=== PATIENT | female | born 1945 | race Caucasian/White ===

== ENCOUNTER 2019-09-08 03:19 | Emergency (ER) | payer MEDICARE, SELFPAY ==
--- NOTE | ~2019-09-08 | CT_ITS ---
EXAMINATION: CT abdomen pelvis wo con DATE: 09/08/2019 07:25 INDICATION: Acute right lateral and lower abdominal pain. TECHNIQUE: Computed tomography (CT) of the abdomen and pelvis was performed without intravenous contr ast. Automated exposure control and iterative reconstruction technique were employed. The dose-length product was 626.80 mGy-cm. COMPARISON: 02/07/2019 FINDINGS: Small calcified nodules in the right lower lobe along with multiple hepatic and splenic calcification s consistent with old granulomatous disease. Visualized inferior heart appears normal. No pericardial or pleural effusion. Gallbladder, pancreas, bilateral adrenal glands are normal. 1 mm nonobstructing stone at the lower pole of the left kidney. Again seen are multiple parapelvic cysts at the left kid maday. Obstructing 2-3 mm stone at the right ureterovesicular junction resulting in mild right hydroure teronephrosis and mild right perinephric stranding. Additional 1 mm stone at the upper pole of the ri ght kidney. No abnormal bowel wall thickening or obstruction. The appendix is not visualized. No ravi cecal inflammatory change to suggest acute appendicitis. Bladder, anteverted uterus and bilateral adn exa are unremarkable. No free intraperitoneal gas or fluid. No pathologically enlarged abdominal or p elvic lymphadenopathy. Severe disc height loss at L5-S1. Otherwise mild lumbar spondylosis and modera te spondylosis in the visualized lower thoracic spine. IMPRESSION: 1. Bilateral nephrolithiasis with obstructing 2-3 mm stone at the right ureterovesicular junction wit h mild right hydroureteronephrosis. Reviewed, dictated and finalized at location A. ER MECHANIC IMPRESSION: 1. Bilateral nephrolithiasis with obstructing 2-3 mm stone at the right uretero vesicular junction with mild right hydroureteronephrosis.
[2019-09-08 03:20] VITALS: BP 142/78; PULSE 78; RESP 22; TEMP 36.2; O2SAT 99
--- NOTE | 2019-09-08 04:00 | ED.ABDPAIN ---
HPI - Abdominal Pain General Chief Complaint: Abdominal Pain Stated Complaint: adominal pain History of Present Illness HPI narrative: Sofia salcido 74-year-old female awoke at 2:00 a.m. with sharp right lower quadrant pain rated 7/10 associated with nausea sweating and feeling hot. She had no vomiting. Pain is worse when sitting or standing decreased when lying supine. Is constant and nonradiating. She had similar pain in the past with a kidney stone. She is color blind is not sure if she has had hematuria. She had similar RLQ pain several years ago when she had a kidney stone. For the last 3 days she has had dysuria and a bladder cramping. She tried taking some leftover Cipro tablets for several days with no benefit. She was started on cefixime 400 mg yesterday by her PCP. She denies fevers chills or flank pain. Related Data Allergies Allergy/AdvReac Type Severity Reaction Status Date / Time iodine Allergy Severe Anaphylactic Verified 09/08/19 04:03 Shock nortriptyline [From Pamelor] Allergy Intermediate Abdominal Verified 09/08/19 04:10 Pain Review of Systems ENT: Comments: Denies sore throat nasal congestion Cardiovascular: Comments: denies chest pain/palpitations Gastrointestinal: Comments: denies diarrhea Musculoskeletal: Comments: soreness in her back and right hip which she attributes to running with her dog. This is nothing new Integumentary/Breasts: Comments: no rash Neurologic: Comments: no headache PMFSH Past Medical History Medical History (Updated 09/08/19 @ 06:36 by He Dia MD) Calculus of kidney Patient denies significant medical history Surgical History Surgical History (Updated 09/08/19 @ 04:07 by He Dia MD) History of appendectomy Social History Social History (Updated 09/08/19 @ 04:07 by He Dia MD) Smoking status: Never smoker Gender identity (if verbalized by the patient): Female Exam Narrative: Exam Narrative: laying upright in bed, somewhat restless, appears uncomfortable Const: Nutritional Appearance: average body habitus HENMT: Mouth: Yes moist mucous membranes Neck: Neck: no lymphadenopathy Resp: Auscultation: clear to auscultation bilaterally Cardio: Rate: regular rate Rhythm: regular rhythm Heart sounds: S1 normal heart sound present and S2 normal heart sound present GI: Inspection: no abdominal wall ecchymosis and non-distended GI Palp: Yes abdominal tenderness ( Right lower quadrant and suprapubic area. Appendectomy scar) and Yes Other GI palpation findings present ( abdomen is soft there is no guarding) Auscultation: normal bowel sounds Back/Spine/Pelvis: Back: no CVA tenderness Extrem: Right lower extremity: ROM limited ( pain) Psych: Appearance: grossly normal and well kempt Course Course Emergency Course: Pain improvement with morphine. Toradol not recommended for pt's older than 65. Vital Signs Vital signs: Vital Signs Temperature 36.2 C L 09/08/19 03:20 Pulse Rate 78 09/08/19 03:20 Respiratory Rate 22 H 09/08/19 03:20 Blood Pressure 142/78 H 09/08/19 03:20 Pulse Oximetry 99 09/08/19 03:20 Temperature 36.2 C L 09/08/19 03:20 Pulse Rate 70 09/08/19 05:22 Respiratory Rate 16 09/08/19 05:22 Blood Pressure 138/72 09/08/19 05:22 Pulse Oximetry 99 09/08/19 03:20 MDM - Abdominal Pain MDM Narrative Medical decision making narrative: Pain decreased to #3/10 after being given morphine and Zofran. No evidence of UTI. WBC - WNL. Pt's pain and dysuria likely related to the kidney stone. Therefore, stop antibiotic, strain urine, control pain. Return if worse, see PCP in 2 - 3 days if pain is not improved. Discussed with patient. Lab Data Lab results narrative: hematuria without pyuria or bacteruria. Result diagrams: 09/08/19 04:45 09/08/19 04:45 Labs: Lab Results 09/08/19 09/08/19 09/08/19 Range/Units 03:55 04:45
--- NOTE | 2019-09-08 04:25 | PC.NURSE ---
attempted IV, using aseptic technique. Dressing applied, request another nurse to try.
[2019-09-08] MEDS: ONDANSETRON INJ 4 MG/2 ML VIAL IV PUSH ×2 (04:40→05:15)
[2019-09-08] MEDS: SODIUM CHLORIDE 0.9% IV 1,000 ML 750 ML IV CONT (04:50)
[2019-09-08] MEDS: MORPHINE SULFATE 4 MG/ML INJ IV PUSH (04:50)
[2019-09-08 04:51] LABS: Basophils Absolute Auto 0.06 K/mm3 (0.00-0.10); Basophils Percent Auto 0.8 % (0.0-1.0); Eosinophils Absolute Auto 0.14 K/mm3 (0.02-0.50); Eosinophils Percent Auto 1.9 % (1.0-6.0); Hematocrit 38.7 % (35.0-42.0); Hemoglobin 12.9 g/dL (11.7-13.8); Immature Granulocyte Absolute 0.04 K/mm3 (0.00-0.00); Immature Granulocyte Percent A 0.5 % (0.0-0.0); Lymphocytes Absolute Auto 1.73 K/mm3 (1.10-4.50); Lymphocytes Percent Auto 23.4 % (18.0-42.0); Mean Corpuscular HGB Conc 33.3 g/dL (32.0-36.0); Mean Corpuscular Hemoglobin 31.7 pg (27.0-31.0); Mean Corpuscular Volume 95.1 fL (78.0-102.0); Mean Platelet Volume 10.2 fl (9.2-11.8); Monocytes Absolute Auto 0.58 K/mm3 (0.10-0.90); Monocytes Percent Auto 7.8 % (2.0-11.0); Neutrophils Absolute Auto 4.8 K/mm3 (1.7-7.2); Neutrophils Percent Auto 65.6 % (50.0-70.0); Platelet Count Result 147 K/mm3 (150-420); Red Blood Count 4.07 M/mm3 (4.20-5.40); Red Cell Distribution Width 12.3 % (11.6-14.4); White Blood Count 7.4 K/mm3 (4.8-10.8)
[2019-09-08 04:56] LABS: Add Urine Microscopic? YES; Appearance Urine Clear (Clear); Bilirubin Urine Negative (Negative); Blood Urine 3+ (Negative); Color Urine Yellow (Yellow); Glucose Urine UA Negative (Negative); Ketones Urine Trace (Negative); Leukocyte Esterase Ur Negative (Negative); Nitrate Urine Negative (Negative); Protein Urine Negative (Negative); Urobilinogen Urine 0.2 mg/dL (0.2-1.0)
[2019-09-08 05:00] LABS: Anion Gap 13.2 mmol/L (7-16); Blood Urea Nitrogen 28 mg/dL (7-18); Calcium 8.8 mg/dL (8.5-10.1); Carbon Dioxide 28 mmol/L (21-32); Chloride 107 mmol/L (98-108); Estimated CRCL calculation 53 ml/min; Estimated Glomerular Filt Rate > 60; Glucose 114 mg/dL (70-99); Osmolality Calculated 304 mOsm/kg (285-295); Potassium 4.2 mmol/L (3.5-5.1); Sodium 144 mmol/L (136-145)
[2019-09-08 05:01] LABS: Bacteria Urine None seen /hpf; Squamous Epithelial Cell Urine None seen /hpf (Few); WBC Urine 0-3 /hpf (0-3)
--- NOTE | 2019-09-08 05:21 | PC.NURSE ---
250ML NS infused, c/o burning in left hand. IV stopped. Waiting results of test
[2019-09-08 05:22] VITALS: BP 138/72; PULSE 70; RESP 16
--- NOTE | 2019-09-08 06:08 | PC.NURSE ---
with patient reviewing results.
--- NOTE | 2019-09-08 06:44 | PC.NURSE ---
patient only received 250mls due to inflitration
== END 2019-09-08 07:00 | disposition home or self-care (01) ==
PROVIDERS: Emergency Provider Family Medicine
DX: N20.0 Calculus of kidney (principal)
CPT/HCPCS: 36415; 74176; 80048; 81001; 85025; 96361; 96372; 96374; 96375; 99283; 99284; J2270; J2405; J7030

== ENCOUNTER 2019-12-04 09:42 | Outpatient (CLI) | payer MEDICARE, SELFPAY ==
[2019-12-04 10:56] LABS: Free T4 Free Thyroxine 0.79 ng/dL (0.76-1.46); Thyroid Stimulating Hormone 8.39 uIU/mL (0.36-3.74)
== END 2019-12-04 09:43 | disposition home or self-care (01) ==
LOC: CHSLAB 09:45
PROVIDERS: PCP Internal Medicine Geriatric Medicine; Visit Provider Internal Medicine Geriatric Medicine
DX: E03.9 Hypothyroidism, unspecified (principal)
CPT/HCPCS: 36415; 84439; 84443

== ENCOUNTER 2020-05-20 11:00 | Outpatient (CLI) | payer MEDICARE, SELFPAY ==
--- NOTE | ~2020-05-20 | US_ITS ---
EXAMINATION: US carotid duplex BI DATE: 05/20/2020 11:49 INDICATION: Right carotid stenosis. TECHNIQUE: Grayscale, color Doppler, and pulsed Doppler images of the cervical carotid arteries were obtained. The degree of vessel stenosis is placed in one of the following categories: normal, <50%, 5 0-69%, >=70% but less than near-occlusion, near-occlusion, or total occlusion. Note that percent sten osis relative to normal distal artery lumen diameter is indirectly measured from velocity measurement s as described by Erik, et al. Radiology 2003; [id number]. COMPARISON: None. FINDINGS: RIGHT: The right common carotid artery (CCA) peak systolic velocity (PSV) is 132 cm/s. The right internal ca rotid artery (ICA) PSV is 118 cm/s. The right ICA end-diastolic velocity (EDV) is 31 cm/s. The right ICA/CCA PSV ratio is 0.9. Grayscale and color Doppler images yield an estimate of <50% diameter reduc tion from plaque in the ICA. There is antegrade flow in the right vertebral artery. LEFT: The left CCA PSV is 114 cm/s. The left ICA PSV is 102 cm/s. The left ICA EDV is 32 cm/s. The left ICA /CCA PSV ratio is 0.9. Grayscale and color Doppler images yield an estimate of <50% diameter reductio n from plaque in the ICA. There is antegrade flow in the left vertebral artery. IMPRESSION: 1. <50% stenosis in the right internal carotid artery. 2. <50% stenosis in the left internal carotid artery. Reviewed, dictated and finalized at location A.
== END 2020-05-20 11:01 | disposition home or self-care (01) ==
LOC: CHSIMG 11:03
PROVIDERS: PCP Internal Medicine Geriatric Medicine; Visit Provider Internal Medicine Geriatric Medicine
DX: I65.21 Occlusion and stenosis of right carotid artery (principal)
CPT/HCPCS: 93880

== ENCOUNTER 2020-12-15 12:03 | Outpatient (CLI) | payer MEDICARE, SELFPAY ==
[2020-12-15 13:45] LABS: Thyroid Stimulating Hormone 6.25 uIU/mL (0.36-3.74)
[2020-12-15 14:20] LABS: Free T4 Free Thyroxine 0.73 ng/dL (0.76-1.46)
== END 2020-12-15 12:04 | disposition home or self-care (01) ==
LOC: CHSLAB 12:05
PROVIDERS: PCP Internal Medicine Geriatric Medicine; Visit Provider Internal Medicine Geriatric Medicine
DX: E03.9 Hypothyroidism, unspecified (principal)
CPT/HCPCS: 36415; 84439; 84443

== ENCOUNTER 2021-01-10 23:39 | Emergency (ER) | payer MEDICARE, SELFPAY ==
[2021-01-11] VITALS: BP 100/60; PULSE 76; RESP 18; TEMP 36.6; O2SAT 98
--- NOTE | 2021-01-11 00:01 | ED.ABDPAIN ---
HPI - Abdominal Pain General Chief Complaint: Urogenital-Female Stated Complaint: Possible Kidney Stone Source: patient and RN notes reviewed Mode of arrival: ambulatory Limitations: no limitations History of Present Illness MD elicited complaint: flank pain (left) Onset (ago): day(s) (1) Pain Consistency: intermittent Location: L flank Severity: moderate Quality: stabbing and sharp Radiation: none Migration to: no migration Exacerbating factors: movement Relieving factors: nothing Associated symptoms: denies other symptoms Related Data Allergies Allergy/AdvReac Type Severity Reaction Status Date / Time iodine Allergy Severe Anaphylactic Verified 09/08/19 04:03 Shock nortriptyline [From Pamelor] Allergy Intermediate Abdominal Verified 09/08/19 04:10 Pain Review of Systems Review of Systems: All systems reviewed & are unremarkable except as noted in HPI and below Constitutional: Constitutional: Denies chills and Denies fever(s) Genitourinary: Genitourinary: Reports dysuria PMFSH Past Medical History Medical History Calculus of kidney Patient denies significant medical history Surgical History Surgical History History of appendectomy Social History Social History Smoking status: Never smoker Gender identity (if verbalized by the patient): Female Exam Const: General: healthy appearing, no acute distress and alert Nutritional Appearance: well nourished and thin Orientation/consciousness: patient oriented x3 HENMT: Head: normal to inspection Face and sinus: normal facial exam Mouth: Yes moist mucous membranes Eyes: Conjunctivae: conjunctivae normal Pupils: Equal, round and reactive pupils present EOM: EOMs intact bilaterally Neck: Neck: normal visual inspection Resp: Effort & Inspection: normal respiratory effort Auscultation: clear to auscultation bilaterally Cardio: Rate: regular rate Rhythm: regular rhythm GI: GI Palp: Yes Soft to palpation, Yes Tenderness to palpation present (GI) (LLQ mild) and No Rebound tenderness present : General: Yes CVA tenderness on the left and localized Back/Spine/Pelvis: Cervical Spine: cervical ROM normal Thoracic/Lumbar Spine: thoraco-lumbar ROM normal Skin: General skin exam: normal color Rashes: no rashes Neuro: General: patient oriented x3, moves all extremities and no focal motor deficits Speech: normal speech Gait exam (Neuro): Normal gait present Extrem: General: normal to inspection and no clubbing, cyanosis or edema Psych: Appearance: grossly normal and well kempt Mental Status: mental status grossly normal Affect: normal affect Attitude: cooperative Thought content: Yes Normal thought content present Course Course Emergency Course: I discussed the results with the patient regarding UTI versus kidney stone. Patient is well-versed and treatment of her kidney stone. She declined CT scan abdomen pelvis to look for kidney stone. She wants to go home with antibiotics for UTI and Flomax for possible kidney stone. Discharge Plan Discharge Clinical Impression: Urinary tract infection Qualifiers: Urinary tract infection type: acute cystitis Hematuria presence: with hematuria Qualified Code(s): N30.01 - Acute cystitis with hematuria Patient Disposition: Home, Self-Care Condition: Stable Instructions: Antibiotic Form, Kidney Stones (ED), Urinary Tract Infection in Women (ED) Additional Instructions: Drink plenty of fluids, follow-up with her primary care and consider seen a urologist for recurrent kidney stones. Prescriptions: New cephalexin 500 mg tablet 500 mg PO Q8H 7 Days Qty: 21 RF: 0 tamsulosin [Flomax] 0.4 mg capsule 0.4 mg PO DAILY Qty: 10 RF: 0 hydrocodone-acetaminophen 5-325 mg tablet 1 tablet PO Q6H PRN (Reason: pain) Qty: 10 RF: 0
[2021-01-11 00:14] LABS: Basophils Absolute Auto 0.06 K/mm3 (0.00-0.10); Basophils Percent Auto 0.9 % (0.0-1.0); Eosinophils Absolute Auto 0.19 K/mm3 (0.02-0.50); Eosinophils Percent Auto 2.8 % (1.0-6.0); Hematocrit 37.2 % (35.0-42.0); Hemoglobin 12.4 g/dL (11.7-13.8); Immature Granulocyte Absolute 0.03 K/mm3 (0.00-0.00); Immature Granulocyte Percent A 0.4 % (0.0-0.0); Lymphocytes Percent Auto 32.4 % (18.0-42.0); Mean Corpuscular HGB Conc 33.3 g/dL (32.0-36.0); Mean Corpuscular Hemoglobin 32.1 pg (27.0-31.0); Mean Corpuscular Volume 96.4 fL (78.0-102.0); Mean Platelet Volume 9.5 fl (9.2-11.8); Monocytes Absolute Auto 0.45 K/mm3 (0.10-0.90); Monocytes Percent Auto 6.6 % (2.0-11.0); Neutrophils Absolute Auto 3.9 K/mm3 (1.7-7.2); Neutrophils Percent Auto 56.9 % (50.0-70.0); Platelet Count Result 168 K/mm3 (150-420); Red Blood Count 3.86 M/mm3 (4.20-5.40); Red Cell Distribution Width 12.3 % (11.6-14.4); White Blood Count 6.8 K/mm3 (4.8-10.8)
[2021-01-11 00:24] LABS: Anion Gap 6 mmol/L (8-16); Blood Urea Nitrogen 27 mg/dL (7-18); Calcium 9.6 mg/dL (8.5-10.1); Carbon Dioxide 31 mmol/L (21-32); Chloride 108 mmol/L (98-108); Estimated CRCL calculation 45 ml/min; Estimated Glomerular Filt Rate 60; Glucose 115 mg/dL (70-99); Osmolality Calculated 306 mOsm/kg (285-295); Sodium 145 mmol/L (136-145)
[2021-01-11 00:46] LABS: Add Urine Microscopic? YES; Appearance Urine Clear (Clear); Bilirubin Urine Negative (Negative); Blood Urine 3+ (Negative); Color Urine Light Yellow (Yellow); Glucose Urine UA Negative (Negative); Ketones Urine Trace (Negative); Leukocyte Esterase Ur Trace LEU/UL (Negative); Nitrate Urine Negative (Negative); Protein Urine Negative (Negative); Specific Grav Ur 1.025 (1.010-1.020); Urobilinogen Urine 0.2 mg/dL (0.2-1.0); pH Urine 5.5 (5.0-8.0)
[2021-01-11 00:47] LABS: Bacteria Urine 3+ /hpf; RBC Urine 21-50 /hpf (0-2); Squamous Epithelial Cell Urine Few /hpf (Few)
[2021-01-11] MEDS: CEPHALEXIN 500 MG CAPSULE PO (01:18)
[2021-01-11] MEDS: TAMSULOSIN HCL 0.4 MG CAPSULE PO (01:18)
[2021-01-11 01:19] VITALS: BP 110/71; PULSE 88; RESP 20; O2SAT 100
== END 2021-01-11 01:23 | disposition home or self-care (01) ==
PROVIDERS: Emergency Provider Emergency Medicine; PCP Internal Medicine Geriatric Medicine
DX: N30.01 Acute cystitis with hematuria (principal)
CPT/HCPCS: 36415; 80048; 81001; 85025; 99283; A9270

== ENCOUNTER 2021-09-01 11:00 | Outpatient (CLI) | payer MEDICARE, SELFPAY ==
[2021-09-01 12:13] LABS: Alanine Aminotransferase 21 U/L (14-59); Albumin Level 3.7 g/dL (3.4-5.0); Alkaline Phosphatase 77 U/L (46-116); Anion Gap 9 mmol/L (8-16); Aspartate Amino Transferase 20 U/L (15-37); Bilirubin,Total 0.7 mg/dL (0.00-1.00); Blood Urea Nitrogen 19 mg/dL (7-18); Calcium 8.9 mg/dL (8.5-10.1); Carbon Dioxide 31 mmol/L (21-32); Chloride 104 mmol/L (98-108); Cholesterol 216 mg/dL (0-200); Estimated Glomerular Filt Rate > 60; Free T3 2.79 pg/mL (2.18-3.98); Glucose 91 mg/dL (70-99); HDL Direct 71 mg/dL (40-60); LDL Cholesterol Calculated 137 mg/dL (<130); Osmolality Calculated 300 mOsm/kg (285-295); Potassium 4.2 mmol/L (3.5-5.1); Sodium 144 mmol/L (136-145); Thyroid Stimulating Hormone 7.55 uIU/mL (0.36-3.74); Total Protein 6.5 g/dL (6.4-8.2); Triglycerides 42 mg/dL (0-150)
[2021-09-01 13:20] LABS: Appearance Urine Clear (Clear); Bilirubin Urine Negative (Negative); Color Urine Light Yellow (Yellow); Glucose Urine UA Negative (Negative); Ketones Urine Negative (Negative); Leukocyte Esterase Ur Trace (Negative); Nitrate Urine Negative (Negative); Protein Urine Negative (Negative); Urobilinogen Urine 0.2 mg/dL (0.2-1.0); pH Urine 7.5 (5.0-8.0)
[2021-09-01 13:29] LABS: Add Urine Microscopic? YES; Blood Urine Trace-Intact (Negative)
[2021-09-01 13:30] LABS: Bacteria Urine Trace /hpf; Squamous Epithelial Cell Urine Few /hpf (Few)
== END 2021-09-01 11:01 | disposition home or self-care (01) ==
LOC: CHSLAB 11:06
PROVIDERS: PCP Internal Medicine Geriatric Medicine; Visit Provider Internal Medicine Geriatric Medicine
DX: R04.1 Hemorrhage from throat (principal); N20.0 Calculus of kidney; E78.2 Mixed hyperlipidemia
CPT/HCPCS: 36415; 80053; 80061; 81001; 84439; 84443; 84481

== ENCOUNTER 2022-04-13 14:59 | Outpatient (RCR) | payer MEDICARE, SELFPAY ==
--- NOTE | 2022-04-13 15:53 | PTOPEVAL1 ---
Assessment and note entered by JT File, PT Evaluation Information Assessment Status Evaluation Diagnosis R adhesive capsulitis Onset 04/09/22 Subjective Information patient reports she has been very active this past summer working in her yard and around her house. she reports all of a sudden she is unable to raise the arm forward or to her side. she reports it does wake her up at night. she reports it has been over 2 months since her symptoms started. she reports no improvement in this time. she reports she has no tried any medications. she reports she did have an xray last week which shows mild to moderate degenerative changes of the R shoulder. she reports she has pain and decreased mobility. she reports she has less pain stright out to her side, and with the arm tucked into her body. she reports she is unable to use the R arm for grooming/self care. patient reports pushing on the back of her shoulder will make her hand go numb. Reported Pain Level Pain Score 9: Self Report Assessment PT Clinical Summary mrs. beasley presents to skilled PT services for evaluation and treatment of pain in the R shoulder coupled with decreased rom and limited functional mobility. she presents with signs and symptoms of adhesive capsulitis with RTC tendonitis. she would do well to attend skilled PT to improve her objective/funcitonal deficits and progress towards a return to her prior level functional activity performance/quality of life. Plan of Care Interventions Electrical Stimulation,Hot Pack/Cold Pack,Manual Therapy,Patient/Caregiver Educati,Therapeutic Activities,Therapeutic Exercise PT Services Indicated Yes Treatment Frequency and 3x weekly for 12 visits Duration These treatments will address the objective and functional deficits as defined above. The patient will be advanced safely and appropriately in order for the patient to progress towards his/her prior level of function. Additional exercises will be introduced and as well as a comprehensive home exercise program upon discharge, if needed, ?to ensure carryover of functional gains achieved in the clinic. This treatment plan has been reviewed and agreement upon by the patient.
--- NOTE | 2022-04-22 14:03 | PTOPPROG ---
Assessment and note entered by Christie Fontana DPT Evaluation Information Assessment Status Progress Diagnosis R adhesive capsulitis Onset 04/09/2022 Subjective Information Pt would like today to be her last day of scheduled PT. She reports that her pain is very high but she feels she has learned ways to compensate. She is mostly worried about losing sensation in her hands as this has been getting worse while her shoulder has been getting better. She would rather not continue coming into PT because she feels as though she is able to do everything at home going forward. She will call back if something changes, but would rather continue her HEP independently and not use up more of her visits. Pt reports that she sees her MD in about 4 weeks. Assessment PT Clinical Summary Pt presents to physical therapy with signifcant improvements in shoulder pain, strength, and ROM since her initial visit. Although her shoulder has experienced improvements, she is demonstrating worsening of radicular symptoms into her R hand. She would like to continue her HEP independently going forward since her shoulder is doing better and she has been independent with all of her exercises at home. PT plans to keep her case open for about a month to ensure that pt has no changes in status and if pt does not reach back out, PT will formally discharge PT. Pt is to follow up with her MD regarding her POC and future treatment going forward. These treatments will address the objective and functional deficits as defined above. The patient will be advanced safely and appropriately in order for the patient to progress towards his/her prior level of function. Additional exercises will be introduced and as well as a comprehensive home exercise program upon discharge, if needed, ?to ensure carryover of functional gains achieved in the clinic. This treatment plan has been reviewed and agreement upon by the patient.
== END 2022-04-22 23:59 | disposition home or self-care (01) ==
LOC: CHSPT 14:59
PROVIDERS: Visit Provider Internal Medicine Geriatric Medicine
DX: M75.01 Adhesive capsulitis of right shoulder (principal)
CPT/HCPCS: 97014; 97110; 97140; 97161; G0283

== ENCOUNTER 2022-06-28 13:47 | Outpatient (CLI) | payer MEDICARE, SELFPAY ==
[2022-06-28 14:46] LABS: Influenza A QL RT-PCR Positive (Negative); Influenza B QL RT-PCR Negative (Negative); SARS-CoV-2 RNA PCR Negative (Negative)
== END 2022-06-28 13:48 | disposition home or self-care (01) ==
LOC: CHSLAB 13:55
PROVIDERS: PCP Internal Medicine Geriatric Medicine; Visit Provider Internal Medicine Geriatric Medicine
DX: R05.9 Cough, unspecified (principal); Z20.822 Contact with and (suspected) exposure to COVID-19
CPT/HCPCS: 87636

== ENCOUNTER 2022-09-16 12:18 | Emergency (ER) | payer MEDICARE, SELFPAY ==
--- NOTE | ~2022-09-16 | CT_ITS ---
Non-contrast Head CT History: Syncope COMPARISON: 06/10/2018 Technique: Axial non-contrast imaging of the brain was performed. Dose reduction technique was used on this scan by utilizing automated exposure control and iterative reconstruction technique. The dose -length product (DLP) was 605.33 mGy-cm. Findings: There is no evidence of intracranial hemorrhage, mass lesion, or acute infarct. Brain par enchyma appears normal. The ventricles and subarachnoid spaces are normal in size. The calvarium ap pears normal. The visualized paranasal sinuses and mastoid air cells are clear. Impression: No significant abnormality seen. Reviewed, dictated and finalized at location . RMEDIATE CARD TENDER Impression: No significant abnormality seen.
--- NOTE | ~2022-09-16 | XR_ITS ---
[[id number] ] INDICATION: Rib pain TECHNIQUE: Frontal projection of the upper right ribs, frontal projection of the lower right ribs, ob lique projection of all the right ribs, frontal inspiratory chest x-ray for interpretation. FINDINGS: There are no displaced rib fractures identified. There are no soft tissue abnormality see n. The lungs are clear. Osteopenia. IMPRESSION: 1:No acute displaced rib fractures. Reviewed, dictated and finalized at location L. D LEADER
[2022-09-16 12:30] VITALS: BP 154/74; PULSE 67; RESP 16; TEMP 36.3; O2SAT 98
--- NOTE | 2022-09-16 12:30 | ECG_ITS ---
Measurements Intervals [place] Rate: 72 P: 71 VA: 162 QRS: 81 QRSD: 84 T: 55 QT: 400 QTc: 441 Interpretive Statements SINUS RHYTHM NORMAL ECG NO PREVIOUS ECG AVAILABLE FOR COMPARISON Electronically Signed On 09-16-2022 13:02:06 ROTARY DRUM DYER by Denzel Parra M.D.
[2022-09-16] MEDS: SODIUM CHLORIDE 0.9% IV 500 ML 999 ML IV CONT (12:46)
[2022-09-16] MEDS: KETOROLAC 30 MG/ML VIAL (*BKC) IV PUSH (12:46)
[2022-09-16 12:54] LABS: Basophils Absolute Auto 0.02 K/mm3 (0.00-0.10); Basophils Percent Auto 0.4 % (0.0-1.0); Eosinophils Percent Auto 2.2 % (1.0-6.0); Hematocrit 38.9 % (35.0-42.0); Hemoglobin 12.8 g/dL (11.7-13.8); Immature Granulocyte Absolute 0.01 K/mm3 (0.00-0.00); Immature Granulocyte Percent A 0.2 % (0.0-0.0); Mean Corpuscular HGB Conc 32.9 g/dL (32.0-36.0); Mean Corpuscular Hemoglobin 32.1 pg (27.0-31.0); Mean Corpuscular Volume 97.5 fL (78.0-102.0); Mean Platelet Volume 10.5 fl (9.2-11.8); Monocytes Absolute Auto 0.35 K/mm3 (0.10-0.90); Monocytes Percent Auto 7.8 % (2.0-11.0); Neutrophils Absolute Auto 2.3 K/mm3 (1.7-7.2); Neutrophils Percent Auto 51.4 % (50.0-70.0); Platelet Count Result 145 K/mm3 (150-420); Red Blood Count 3.99 M/mm3 (4.20-5.40); Red Cell Distribution Width 12.5 % (11.6-14.4); White Blood Count 4.5 K/mm3 (4.8-10.8)
[2022-09-16 13:09] LABS: Partial Thromboplastin Time 29.5 SEC (23.90-30.70)
[2022-09-16 13:16] LABS: Lactic Acid Reflex 0.9 mmol/L (0.4-2.0)
[2022-09-16 13:17] LABS: Alanine Aminotransferase 21 U/L (14-59); Albumin Level 3.2 g/dL (3.4-5.0); Alkaline Phosphatase 79 U/L (46-116); Anion Gap 5 mmol/L (8-16); Aspartate Amino Transferase 16 U/L (15-37); Bilirubin,Total 0.6 mg/dL (0.00-1.00); Blood Urea Nitrogen 25 mg/dL (7-18); Carbon Dioxide 31 mmol/L (21-32); Chloride 105 mmol/L (98-108); Estimated Glomerular Filt Rate > 60; Glucose 98 mg/dL (70-99); Magnesium 1.8 mg/dL (1.8-2.4); NT Pro B Type Natriuretic Pept 65 pg/mL (0-450); Osmolality Calculated 296 mOsm/kg (285-295); Sodium 141 mmol/L (136-145); Total Protein 6.9 g/dL (6.4-8.2); Troponin I 5.8 ng/L (0.00-60.4)
[2022-09-16 13:19] LABS: CRP 1.3 mg/dL (0.0-0.9)
--- NOTE | 2022-09-16 14:01 | ED.FALL ---
HPI - Fall General Chief Complaint: Fall Stated Complaint: rib pain, Covid+ Time Seen by Provider: 09/16/22 12:29 Source: patient Mode of arrival: ambulatory Limitations: no limitations History of Present Illness HPI Narrative: this is a 77-year-old female with no significant past medical history diagnosed with COVID approximately 4 days ago, has been having some congestion and was taking NyQuil and 2 days ago had a fall and after she felt lightheaded and dizzy and injured the right side of her ribs. Otherwise her pain level is about an 8/10 with no shortness of breath currently no dizziness no lightheadedness no chest pain no abdominal pain no dysuria. complaint: fall Onset (ago): day(s) Fall from: standing Fall witnessed: no Place fall occurred: home Loss of consciousness: none Prolonged down time: no Symptoms prior to fall: lightheadedness and dizziness Related Data Allergies Allergy/AdvReac Type Severity Reaction Status Date / Time iodine Allergy Severe Anaphylactic Verified 09/16/22 13:06 Shock nortriptyline [From Pamelor] Allergy Intermediate Abdominal Verified 09/16/22 13:06 Pain Review of Systems Review of Systems: All systems reviewed & are unremarkable except as noted in HPI and below PMFSH Past Medical History Medical History Calculus of kidney Patient denies significant medical history Surgical History Surgical History History of appendectomy Social History Social History Smoking status: Never smoker Gender identity (if verbalized by the patient): Female Exam Const: General: healthy appearing, no acute distress and alert HENMT: Face and sinus: normal facial exam Mouth: Yes Normal oral and palatal mucosa present Throat: posterior oropharynx normal Eyes: Conjunctivae: conjunctivae normal EOM: EOMs intact bilaterally Neck: Neck: normal visual inspection, no lymphadenopathy and no meningeal signs Chest: Chest palpation & inspection: normal inspection of the chest Resp: Effort & Inspection: normal respiratory effort Auscultation: clear to auscultation bilaterally Cardio: Rate: regular rate Rhythm: regular rhythm GI: Auscultation: normal bowel sounds : General: Yes bladder normal to palpation Urinary Catheter: Urinary Catheter: patent and draining Back/Spine/Pelvis: Back: no CVA tenderness Skin: General skin exam: normal color Rashes: no rashes Wounds: no wounds Neuro: General: patient oriented x3 and moves all extremities Cranial nerves: Yes Nystagmus not present Speech: normal speech Gait exam (Neuro): Normal gait present Extrem: General: normal to inspection Psych: Mental Status: mental status grossly normal Affect: normal affect Attitude: cooperative Course Course Emergency Course: Patient received IV fluids as well as IV Toradol pain improved, EKG x-rays and CT scan of the head all proved to be negative. Vital Signs Vital signs: Vital Signs Temperature 36.3 C L 09/16/22 12:30 Pulse Rate 67 09/16/22 12:30 Respiratory Rate 16 09/16/22 12:30 Blood Pressure 154/74 H 09/16/22 12:30 Pulse Oximetry 98 09/16/22 12:30 Oxygen Delivery Room Air 09/16/22 12:30 Temperature 36.3 C L 09/16/22 12:30 Pulse Rate 67 09/16/22 12:30 Respiratory Rate 16 09/16/22 12:30 Blood Pressure 154/74 H 09/16/22 12:30 Pulse Oximetry 98 09/16/22 12:30 Oxygen Delivery Room Air 09/16/22 12:30 MDM - Fall Lab Data 09/16/22 12:46 09/16/22 12:47 Labs: Lab Results 09/16/22 09/16/22 09/16/22 Range/Units 12:46 12:46 12:47 WBC 4.5 L (4.8-10.8) K/mm3 RBC 3.99 L (4.20-5.40) M/mm3 Hgb 12.8 (11.7-13.8) g/dL Hct 38.9 (35.0-42.0) % MCV 97.5 (78.0-102.0) fL MCH 32.1 H (27.0-31.0) pg MCHC 32.9 (32.0-36.0) g/d
[2022-09-16 14:14] VITALS: BP 130/76; PULSE 72; RESP 16; TEMP 36.8; O2SAT 100
== END 2022-09-16 14:15 | disposition home or self-care (01) ==
PROVIDERS: Emergency Provider Emergency Medicine; PCP Internal Medicine Geriatric Medicine
DX: S20.211A Contusion of right front wall of thorax, initial encounter (principal); W18.39XA Other fall on same level, initial encounter; U07.1 COVID-19
CPT/HCPCS: 36415; 70450; 71101; 80053; 83605; 83735; 83880; 84484; 85025; 85610; 85730; 86140; 93005; 96361; 96374; 99284; J1885; J7040

== ENCOUNTER 2024-01-27 17:13 | Emergency (ER) | payer MEDICARE, SELFPAY ==
[2024-01-27] VITALS (8 sets, daily range): BP systolic 109–153; BP diastolic 62–86; PULSE 60–74; RESP 16–22; TEMP 36.8; O2SAT 98–100
--- NOTE | ~2024-01-27 | CT_ITS ---
CT cervical spine wo con Ordering provider: Nas Pate MD History: . Chronic cervical pain . Comparison: None. Technique: CT of the cervical spine was performed without contrast. Sagittal and coronal reformatted images were also obtained and reviewed. Automated exposure control and iterative reconstruction iglesia hnique were employed. The dose-length product was 173.50 mGy-cm. FINDINGS: VERTEBRAE: No subluxation or acute fracture. The occipital condyles are intact. Degenerative changes of the spine. DISC SPACES: Narrowing of the disks C4-C5, C5-C6 and C6-C7. Narrowing of C7-T1 and T1-T2 is also note d. Multilevel facet joint disease. Multilevel uncovertebral joint osteoarthritic changes. Bilateral n arrowing of the foramina at the level of C4-C5, C5-C6, C6-C7 and C7-T1. PARASPINOUS SOFT TISSUES: Normal. IMPRESSION: No acute osseous abnormality cervical spine. Reviewed, dictated and finalized at location A.
--- NOTE | ~2024-01-27 | XR_ITS ---
XR chest 1V portable Ordering provider: Nas Pate MD History: 79 years Female with . dizziness/weak . Comparison: July 13, 2015 FINDINGS: MEDIASTINUM: The cardiac silhouette is not enlarged. LUNGS: No infiltrates, effusions or pneumothorax. OTHER: No free air under the diaphragm. Degenerative changes of the spine. IMPRESSION: No acute cardiopulmonary pathology. Reviewed, dictated and finalized at location A.
--- NOTE | ~2024-01-27 | CT_ITS ---
CT brain wo con Ordering provider: Nas Pate MD History: 79 years Female with . Onset x5 days, dizziness . Comparison: None. Technique: CT of the head without contrast. Radiation reduction technique utilized. DLP is 605.33 mGy. FINDINGS: BRAIN PARENCHYMA AND CSF SPACES: Mild leukoaraiosis and diffuse cortical atrophy. Mild atheromatous d isease. No midline shift, mass effect or hemorrhage. The brain parenchyma and CSF spaces are otherwi se normal. VISUALIZED PARANASAL SINUSES: Well aerated. MASTOIDS: Well aerated. BONES: The bones appear intact. SOFT TISSUES: Visualized nasopharynx is normal. Superficial soft tissues are normal. IMPRESSION: No acute intracranial findings. Reviewed, dictated and finalized at location A.
--- NOTE | 2024-01-27 17:27 | ED.DIZZY ---
HPI - Dizziness General Chief Complaint: Dizziness Stated Complaint: head ache Time Seen by Provider: 01/27/24 17:17 Source: patient Mode of arrival: ambulatory Limitations: no limitations History of Present Illness HPI Narrative: Patient is a 79-year-old female with dizziness with position of her head all week for the past 5 days. She also had 1 event of syncope for a few seconds at home. She also got weak and near syncope at [facility] this week. She is here with continued weakness and dizziness. She has associated headache. MD elicited complaint: dizziness, near syncope, vertigo and disequilibrium Pertinent past history: other ( None) Onset (ago): day(s) (5) Timing: gradual onset and constant Severity: moderate Description: sense of movement, room spinning , off-balance and near-syncope History of similar symptoms: No Exacerbating factors: nothing Relieving factors: nothing Associated symptoms: syncope and weakness Associated neuro symptoms: other ( none except headache) Related Data Allergies Allergy/AdvReac Type Severity Reaction Status Date / Time iodine Allergy Severe Anaphylactic Verified 09/16/22 13:06 Shock nortriptyline [From Pamelor] Allergy Intermediate Abdominal Verified 09/16/22 13:06 Pain Review of Systems Review of Systems: All systems reviewed & are unremarkable except as noted in HPI and below Constitutional: Constitutional: Reports no additional constitutional complaints Eyes: Eyes: Reports no additional eye complaints ENT: Reports system reviewed and no additional complaints, except as documented Cardiovascular: Cardiovascular: Reports no additional cardiovascular complaints Respiratory: Respiratory: Reports no additional respiratory complaints Gastrointestinal: Gastrointestinal: Reports no additional gastrointestinal complaints Genitourinary: Genitourinary: Reports no additional female genitourinary complaints Musculoskeletal: Musculoskeletal: Reports no additional musculoskeletal complaints Integumentary/Breasts: Skin/Breast: Reports system reviewed and no additional complaints, except as docu Neurologic: Reports system reviewed and no additional complaints, except as documented Psychiatric: Psychiatric: Reports no additional psychiatric complaints Endocrine: Endocrine: Reports no additional endocrine complaints Hematologic/Lymphatic: Hematologic/Lymphatic: Reports no additional hematologic/lymphatic complaints Allergic/Immunologic: Allergic/Immunologic: Reports no additional allergic/immunologic complaints [facility] Past Medical History Medical History Calculus of kidney Patient denies significant medical history Surgical History Surgical History History of appendectomy Social History Social History Smoking status: Never smoker Gender identity (if verbalized by the patient): Female Exam Const: General: healthy appearing Nutritional Appearance: well nourished Orientation/consciousness: patient oriented x3 HENMT: Head: normal to inspection Ears: TM's normal bilaterally Face/Nose/Sinus: Normal external nose present Eyes: Conjunctivae: conjunctivae normal Pupils: Equal, round and reactive pupils present EOM: EOMs intact bilaterally Neck: Neck: normal visual inspection Chest: Chest palpation & inspection: normal inspection of the chest Resp: Effort & Inspection: normal respiratory effort and not labored Auscultation: clear to auscultation bilaterally Cardio: Rate: regular rate Rhythm: regular rhythm Heart sounds: no murmurs GI: Inspection: non-distended GI Palp: Yes Soft to palpation and No Tenderness to palpation present (GI) Auscultation: normal bowel sounds : General: Yes bladder normal to palpation Back/Spine/Pelvis: Back: no CVA tenderness Skin: General skin exam: normal c
--- NOTE | 2024-01-27 18:01 | ECG_ITS ---
Test Date: 2024-01-27 18:32:34 Measurements Intervals [place] Rate: 63 P: 61 RI: 163 QRS: 26 QRSD: 93 T: 50 QT: 414 QTc: 427 Interpretive Statements SINUS RHYTHM CANNOT R/O SEPTAL INFARCT, AGE INDETERMINATE BASELINE ARTIFACT- I, II, III, AVR, AVL, AVF, V1-V2 ABNORMAL ECG No previous ECG available for comparison Electronically Signed On 01-30-2024 10:16:11 CDT by Jovanny Greer D.O.
[2024-01-27 18:17] LABS: Basophils Absolute Auto 0.05 K/mm3 (0.00-0.10); Basophils Percent Auto 0.9 % (0.0-1.0); Eosinophils Absolute Auto 0.24 K/mm3 (0.02-0.50); Eosinophils Percent Auto 4.1 % (1.0-6.0); Hematocrit 37.8 % (35.0-42.0); Hemoglobin 12.9 g/dL (11.7-13.8); Immature Granulocyte Absolute 0.01 K/mm3 (0.00-0.00); Immature Granulocyte Percent A 0.2 % (0.0-0.0); Lymphocytes Absolute Auto 2.13 K/mm3 (1.10-4.50); Lymphocytes Percent Auto 36.2 % (18.0-42.0); Mean Corpuscular HGB Conc 34.1 g/dL (32-36); Mean Corpuscular Hemoglobin 32.7 pg (27.0-31.0); Mean Corpuscular Volume 95.7 fL (78.0-102.0); Mean Platelet Volume 9.8 fl (9.2-11.8); Monocytes Absolute Auto 0.52 K/mm3 (0.10-0.90); Monocytes Percent Auto 8.8 % (2.0-11.0); Neutrophils Absolute Auto 2.93 K/mm3 (1.70-7.20); Neutrophils Percent Auto 49.8 % (50.0-70.0); Platelet Count Result 141 K/mm3 (150-420); Red Blood Count 3.95 M/mm3 (4.20-5.40); White Blood Count 5.9 K/mm3 (4.8-10.8)
[2024-01-27 18:31] LABS: Partial Thromboplastin Time 26.4 Sec (23.9-30.70)
[2024-01-27 18:34] LABS: Appearance Urine Clear (Clear); Bilirubin Urine Negative (Negative); Blood Urine Negative (Negative); Color Urine Yellow (Yellow); Glucose Urine UA Negative (Negative); Ketones Urine Negative (Negative); Leukocyte Esterase Ur Trace LEU/UL (Negative); Nitrate Urine Negative (Negative); Protein Urine Negative (Negative); Specific Grav Ur 1.025 (1.010-1.020); Urobilinogen Urine 0.2 mg/dL (0.2-1.0)
[2024-01-27 18:38] LABS: Alanine Aminotransferase 12 U/L (14-59); Albumin Level 3.4 g/dL (3.4-5.0); Alkaline Phosphatase 63 U/L (46-116); Anion Gap 6 mmol/L (4-12); Aspartate Amino Transferase 21 U/L (15-37); Bilirubin,Total 0.4 mg/dL (0.00-1.00); Blood Urea Nitrogen 33 mg/dL (7-18); Calcium 9.1 mg/dL (8.5-10.1); Carbon Dioxide 31 mmol/L (21-32); Chloride 104 mmol/L (98-108); Estimated CRCL calculation 50 ml/min; Estimated Glomerular Filt Rate > 60; Glucose 101 mg/dL (70-99); Osmolality Calculated 299 mOsm/kg (285-295); Sodium 141 mmol/L (136-145); Total Protein 6.5 g/dL (6.4-8.2)
[2024-01-27 18:40] LABS: Add Urine Microscopic? YES; Bacteria Urine 2+ /hpf; RBC Urine 0-2 /hpf (0-2); Squamous Epithelial Cell Urine Few /hpf (Few)
[2024-01-27] MEDS: CEPHALEXIN 500 MG CAPSULE PO (19:50)
[2024-01-27] MEDS: MECLIZINE HCL 25 MG TABLET PO (19:50)
--- NOTE | 2024-01-27 21:15 | PC.NURSE ---
had pt stand up beside bed to see if they still felt dizzy. pt no longer felt dizzy so tech walked pt to door and back to bed. pt still had no feeling of dizziness and stated they are ready to go home
== END 2024-01-27 21:20 | disposition home or self-care (01) ==
PROVIDERS: Emergency Provider Emergency Medicine; PCP Internal Medicine Geriatric Medicine
DX: N39.0 Urinary tract infection, site not specified (principal); H81.10 Benign paroxysmal vertigo, unspecified ear; R55 Syncope and collapse; R53.1 Weakness
CPT/HCPCS: 36415; 70450; 71045; 72125; 80053; 81001; 84484; 85025; 85610; 85730; 87086; 87088; 93005; 99284; A9270

== ENCOUNTER 2024-04-11 09:49 | Outpatient (CLI) | payer MEDICARE, SELFPAY | END 2024-04-11 09:50 | disposition home or self-care (01) | LOC: CHSCARD 09:55 | PROVIDERS: PCP Internal Medicine Geriatric Medicine | DX: R41.3 Other amnesia (principal) | CPT/HCPCS: 99199 ==

== ENCOUNTER 2024-04-23 12:01 | Outpatient (CLI) | payer MEDICARE, SELFPAY ==
[2024-04-23 13:29] LABS: Appearance Urine Turbid (Clear); Color Urine Yellow (Yellow); Glucose Urine UA Negative (Negative); Ketones Urine Negative (Negative); Protein Urine Negative (Negative); Specific Grav Ur 1.025 (1.010-1.020)
[2024-04-23 13:30] LABS: Blood Urine 1+ (Negative)
[2024-04-23 13:32] LABS: Nitrate Urine Positive (Negative)
[2024-04-23 13:33] LABS: Add Urine Microscopic? YES; Bilirubin Urine Negative (Negative); Leukocyte Esterase Ur 2+ (Negative); Renal Epithelial Cells Urine Few /hpf; Squamous Epithelial Cell Urine Few /hpf (Few); Urobilinogen Urine 0.2 mg/dL (0.2-1.0); WBC Urine 16-20 /hpf (0-3)
[2024-04-23 13:34] LABS: Bacteria Urine 3+ /hpf
== END 2024-04-23 12:02 | disposition home or self-care (01) ==
PROVIDERS: PCP Internal Medicine Geriatric Medicine
DX: N39.0 Urinary tract infection, site not specified (principal)
CPT/HCPCS: 81001; 87077; 87086; 87088; 87186

== ENCOUNTER 2024-04-25 13:49 | Outpatient (RCR) | payer MEDICARE, SELFPAY ==
--- NOTE | 2024-04-25 15:26 | OPREHPOC ---
Outpatient Therapy Plan of Care This is a Multidisciplinary Plan of Care that may contain components documented by all disciplines (PT, OT, and ST.) PT Problem 1 PT Problem #1 Knowledge Deficit PT Goal 1 Goal / Goal Update The patient will be independent in a home exercise program. Target Visit 4 PT Problem 2 PT Problem #2 Pain PT Goal 1 Goal / Goal Update The patient will report a reduction in cervical pain to 5/10 at worst with daily activities. Target Visit 10 PT Problem 3 PT Problem #3 Impaired Balance PT Goal 1 Goal / Goal Update The patient will demonstrate at least 19/28 on the Tinetti Balance scale indicating a lower fall risk. Target Visit 10 PT Problem 4 PT Problem #4 Impaired Functional Mobil PT Goal 1 Goal / Goal Update The patient will demonstrate 30% or less self perceived disability per the Dizziness Handicap Inventory. Target Visit 10
--- NOTE | 2024-04-25 15:26 | PTOPEVAL1 ---
Assessment and note entered by Aurora Sanon, PT Evaluation Information Assessment Status Evaluation Diagnosis Vertigo, history of head injury Other ICD-10 Condition Codes ( R42, R41.3, Z87.828 PT) Onset 04/20/24 Subjective Information Karen reports she currently has a UTI and she gets them frequently. She reports when she gets them she is asymptomatic. The most recent UTI caused her to have memory loss that started about 3 weeks ago. She went to her MD and was put on medication which did not help. She was then started on a new medication. 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 She has gotten lost trying to go to her friend's house that she has visited frequently. She also has neck pain that has been present since 2018 when she sustained a concussion when she fell and hit her head on concrete. She notes the neck pain has worsened over the last few months and she has difficulty moving her head to the side. She has less motion to the right. She notes dizziness when she turns her head quickly. She reports her head feels full. She also notes dizziness when she bends over and tries to pick something up. She also notes the morning is the worst time of day for her due to dizziness. She is also wearing a heart monitor for 30 days to rule out cardiac issues that may be leading to dizziness. Reported Pain Level Pain Score 5: Self Report Assessment PT Clinical Summary Sofia Magana presents with vertigo and neck pain with a history of a concussion in 2018. She is currently fighting a UTI as well that is causing her to have short term memory loss. She reports difficulty moving her head quickly, moving in bed, driving, and bending over. She objectively demonstrates decreased and painful cervical AROM, vertigo with cervical rotation and extension, vertigo with right > left Daphne Hallpike and horizontal roll tests, and decreased balance. She does not demonstrate nystagmus currently. She will benefit from skilled PT to address these limitations. Plan of Care Interventions Gait Training,Hot Pack/Cold Pack,Manual Therapy, Neuro Re-education,Patient/Caregiver Educati, Therapeutic Activities,Therapeutic Exercise PT Services Indicated Yes Treatment Frequency and 2 times a week for 10 visits Duration These treatments will address the objective and functional deficits as defined above. The patient will be advanced safely and appropriately in order for the patient to progress towards his/her prior level of function. Additional exercises will be introduced and as well as a comprehensive home exercise program upon discharge, if needed, ?to ensure carryover of functional gains achieved in the clinic. This treatment plan has been reviewed and agreement upon by the patient.
--- NOTE | 2024-05-03 15:23 | OPREHPOC ---
Outpatient Therapy Plan of Care This is a Multidisciplinary Plan of Care that may contain components documented by all disciplines (PT, OT, and ST.) PT Problem 1 PT Problem #1 Knowledge Deficit PT Goal 1 Goal / Goal Update The patient will be independent in a home exercise program. Target Visit 4 Progress Not Met PT Problem 2 PT Problem #2 Pain PT Goal 1 Goal / Goal Update The patient will report a reduction in cervical pain to 5/10 at worst with daily activities. Target Visit 10 Progress Not Met PT Problem 3 PT Problem #3 Impaired Balance PT Goal 1 Goal / Goal Update The patient will demonstrate at least 19/28 on the Tinetti Balance scale indicating a lower fall risk. Target Visit 10 Progress Not Met PT Problem 4 PT Problem #4 Impaired Functional Mobil PT Goal 1 Goal / Goal Update The patient will demonstrate 30% or less self perceived disability per the Dizziness Handicap Inventory. Target Visit 10 Progress Not Met
--- NOTE | 2024-05-03 15:23 | PTOPPROG ---
Assessment and note entered by Aurora Sanon, PT Evaluation Information Assessment Status Progress Diagnosis vertigo, history of head injury Other ICD-10 Condition Codes ( R42, R41.3, Z87.828 PT) Onset 04/20/24 Subjective Information Sofia Magana is reporting no change in her symptoms since starting PT or starting ciproflaxcin. She reports her head feels full but she is not experiencing vertigo or spinning. She denies nausea. She has been on cipro for 3 days and has noted no change in her UTI symptoms. She has canceled her mission trip for later this month and plans to follow up with her doctor about symptoms. Assessment PT Clinical Summary Sofia Magana has completed 3 skilled PT visits. She is reporting no change in her symptoms since starting PT or starting ciproflaxicin. She reports her head feels full but she is not experiencing vertigo or spinning. She denies nausea. She is not demonstrating nystagmus or vertigo with vestibular testing today. She has attempted VOR and home Wily treatments with no change in symptoms. It is felt she is not a candidate for vestibular rehabilitation at this point and she will be put on hold. She was instructed to follow up with her physician. Plan of Care Interventions Other Other Interventions canalith repositioning, VOR, balance training PT Services Indicated No Treatment Frequency and PT on hold. Patient to follow up with her Duration physician. These treatments will address the objective and functional deficits as defined above. The patient will be advanced safely and appropriately in order for the patient to progress towards his/her prior level of function. Additional exercises will be introduced and as well as a comprehensive home exercise program upon discharge, if needed, ?to ensure carryover of functional gains achieved in the clinic. This treatment plan has been reviewed and agreement upon by the patient.
--- NOTE | 2024-07-10 14:52 | PCPTNOTE ---
07/10/24: Pt was last seen on 05/03/24 at which time she was put on hold until she could see her doctor. No additional orders received and she is discharged. -Aurora Sanon, PT
== END 2024-05-03 15:30 | disposition home or self-care (01) ==
LOC: CHSPT 13:49
DX: R42 Dizziness and giddiness (principal); R41.3 Other amnesia; Z87.828 Personal history of other (healed) physical injury and trauma
CPT/HCPCS: 95992; 97110; 97162; 97750

== ENCOUNTER 2024-08-21 09:11 | Outpatient (RCR) | payer MEDICARE, SELFPAY ==
--- NOTE | 2024-08-21 10:36 | OPREHPOC ---
Outpatient Therapy Plan of Care This is a Multidisciplinary Plan of Care that may contain components documented by all disciplines (PT, OT, and ST.) PT Problem 1 PT Problem #1 Knowledge Deficit PT Goal 1 Goal / Goal Update 1. independent and compliant with HEP Target Visit 2 PT Problem 2 PT Problem #2 Impaired Vestibular System PT Goal 1 Goal / Goal Update 1. patient to display normal performance of saccades 2. patient to display no tracking issues with smooth pursuits 3. patient to report no symptoms with log roll vestibular testing to the R Target Visit 8 PT Problem 3 PT Problem #3 Impaired Functional Mobility PT Goal 1 Goal / Goal Update 1. DHI to display 5% or less functional deficits 2. patient to report return of confidence to go out in public and participate in social events. Target Visit 8
--- NOTE | 2024-08-21 10:36 | PTOPEVAL1 ---
Assessment and note entered by JT File, PT Evaluation Information Assessment Status Evaluation ICD-10 Condition Codes (PT) Dizziness and Giddiness R42 Onset 08/16/24 Subjective Information patient reports she is dizzy off and on. she reports she is unaware when it is going to come about. she reports this frustrates her because she then gets anxious about being able to go out and participate in things. she reports her symptoms began months ago. she reports she woke up one morning very dizzy and staggering around. she reports when it is very bad the room is spinning. she reports it lasts nearly 30 minutes, and she has to sit down on the floor til it goes away. she reports she also always feels unsecure walking due to fear it is going to come on. she reports this affects her most out in the community. she reports she is confident at home knowing her surroundings. she reports it has not been too bad the last few days. she reports she has not been put on any medications for this issue. she reports she has no issues with reading or driving. however, she reports she will not drive when she is feeling dizzy that day at home. she reports her symptoms are brought on by movement. Reported Pain Level Pain Score 0: Self Report Assessment PT Clinical Summary mrs. beasley is a 79 yo woman who presents to skilled PT services for evaluation and treatment of dizziness. she explains symptoms of vertigo at times, low BP at times, and anxiety at times. she reports she is fearful to fall due to not knowing when the symptoms will come on. testing indicates patient has trouble with saccades, smooth pursuits , log roll test to the R, tinetti balance, and orthostatic hypotension. continued skilled PT is indicated to improve he objective/functional deficits, reduce subjective dizziness reports, and return to prior level functional activity performance/quality of life. Plan of Care Interventions Neuro Re-education,Patient/Caregiver Education, Therapeutic Activities,Therapeutic Exercise,Other Other Interventions CR PT Services Indicated Yes Treatment Frequency and 2x weekly for 8 visits Duration These treatments will address the objective and functional deficits as defined above. The patient will be advanced safely and appropriately in order for the patient to progress towards his/her prior level of function. Additional exercises will be introduced and as well as a comprehensive home exercise program upon discharge, if needed, ?to ensure carryover of functional gains achieved in the clinic. This treatment plan has been reviewed and agreement upon by the patient.
--- NOTE | 2024-09-13 16:25 | OPREHPOC ---
Outpatient Therapy Plan of Care This is a Multidisciplinary Plan of Care that may contain components documented by all disciplines (PT, OT, and ST.) PT Problem 1 PT Problem #1 Knowledge Deficit PT Goal 1 Goal / Goal Update 1. independent and compliant with HEP Target Visit 2 Progress Met PT Problem 2 PT Problem #2 Impaired Vestibular System PT Goal 1 Goal / Goal Update 1. patient to display normal performance of saccades 2. patient to display no tracking issues with smooth pursuits 3. patient to report no symptoms with log roll vestibular testing to the R Target Visit 8 Progress Met PT Problem 3 PT Problem #3 Impaired Functional Mobility PT Goal 1 Goal / Goal Update 1. DHI to display 5% or less functional deficits. not met 2. patient to report return of confidence to go out in public and participate in social events. met Target Visit 8 Progress Partially Met
--- NOTE | 2024-09-13 16:25 | PTOPDC ---
Assessment and note entered by JT File, PT Evaluation Information Assessment Status Discharge ICD-10 Condition Codes (PT) Dizziness and Giddiness R42,BPPV right ear H81.11 Onset 08/16/24 Subjective Information patient reports she feels Good today. she reports she has no dizziness. she reports she has had some L hip pain from increased hip exercises, but reports this is only when doing a lot of lateral kicks. Reported Pain Level Pain Score 0: Self Report Assessment PT Clinical Summary mrs. beasley presents to skilled PT with no vertigo/ dizziness. she has returned to all prior level activities with confidence. she has nearly met all goals for skilled PT. as of this date, she will DC skilled PT, and continue with exercise routine, including daily walking when it warms up, independently at home. Plan of Care PT Services Indicated Yes
== END 2024-09-13 16:29 | disposition home or self-care (01) ==
LOC: CHSPT 09:11
DX: H81.11 Benign paroxysmal vertigo, right ear (principal); I95.1 Orthostatic hypotension
CPT/HCPCS: 95992; 97110; 97112; 97161; 97530

== ENCOUNTER 2024-11-12 13:12 | Outpatient (CLI) | payer MEDICARE, SELFPAY ==
[2024-11-12 13:26] LABS: Add Urine Microscopic? YES; Appearance Urine Clear (Clear); Bilirubin Urine Negative (Negative); Blood Urine 2+ (Negative); Color Urine Light Yellow (Yellow); Glucose Urine UA Negative (Negative); Ketones Urine Trace (Negative); Leukocyte Esterase Ur 2+ LEU/UL (Negative); Nitrate Urine Negative (Negative); Protein Urine 2+ (Negative); Specific Grav Ur >= 1.030 (1.010-1.020); Urobilinogen Urine 0.2 mg/dL (0.2-1.0)
[2024-11-12 13:34] LABS: Bacteria Urine Trace /hpf; Squamous Epithelial Cell Urine Rare /hpf (Few); WBC Urine 31-50 /hpf (0-3)
--- OUTSIDE RECORDS SUMMARY | 2024-11-12 14:49 | XMS_ITS | Clinical Summary ---
Author Organization [facility] Address [address] [place] [address] Phone Care Team Providers Care Embroidery Patternmaker Name Role Phone Leana Shi MD Primary Care Provider [phone] Magdy Navarrete MD Unavailable [phone] Allergies Active Allergy Reactions Criticality Noted Date Comments Oxybutynin Unknown 05/18/2024 Iodine Anaphylaxis 05/18/2024 Contrast dye Nitrofurantoin Nausea 05/18/2024 Nortriptyline Unknown 05/18/2024 Medications ALPRAZolam (XANAX) 0.25 MG Tablet Take 0.25 mg by mouth 2 times daily as needed. Active Calcium Carb-Cholecalci ferol (CALCIUM 600 + D PO) Take by mouth. Active Polyvinyl Alcohol-Povidon e (REFRESH OP) Place in affected eye(s). Active estradiol (ESTRACE) 0.1 MG/GM Cream 2 g by Vaginal route daily. Active meclizine (ANTIVERT) 25 MG Tablet Take 25 mg by mouth 3 times daily as needed. Active Vibegron 75 MG Tablet Take by mouth. Active Encounters Date Type Department Care Team Description 09/17/2024 3:30 PM ORDER CHECKER PACKER PROCESSER Office Visit [facility] [address] [place] [address] Magdy Navarrete MD Mild cognitive impairment (Primary Dx); Vertigo Discharge Disposition: Discharged to home or Selfcare 09/17/2024 Travel from Last 3 Months Social History Tobacco Use Types Packs/Day Years Used Date Smoking Tobacco: Never Smokeless Tobacco: Never Tobacco Cessation:Counseling Given: Not Answered Alcohol Use Standard Drinks/Week Comments Not Currently 0 (1 standard drink = 0.6 oz pur e alcohol) Comments Unknown Sex and Gender Information Value Date Recorded Sex Assigned at Not on file Legal Sex Female 11:27 PM CDT Gender Identity Not on file Sexual Orientation Not on file Last Filed Vital Signs Vital Sign Reading Time Taken Comments Blood Pressure 122/72 09/17/2024 3:33 PM ORDER CHECKER PACKER PROCESSER Pulse 67 09/17/2024 3:33 PM ORDER CHECKER PACKER PROCESSER Temperature 36.4 C (97.6 F) 09/17/2024 3:33 PM ORDER CHECKER PACKER PROCESSER Respiratory Rate 16 09/17/2024 3:33 PM ORDER CHECKER PACKER PROCESSER Oxygen Saturation 97% 09/17/2024 3:33 PM ORDER CHECKER PACKER PROCESSER Inhaled Oxygen Concentration - - Weight 75.6 kg (166 lb 11.2 oz) 09/17/2024 3:33 PM ORDER CHECKER PACKER PROCESSER Height 167.6 cm (5' 6 ) 09/17/2024 3:33 PM ORDER CHECKER PACKER PROCESSER Body Mass Index 26.91 09/17/2024 3:33 PM ORDER CHECKER PACKER PROCESSER Plan of Treatment Upcoming Encounters Date Type Department Care Team (Late st Contact Info) Description 12/14/2024 2:30 PM CDT Office Visit [facility] - Neurology [facility] [address] [place] [address] Magdy Navarrete MD [address] [place] [address] Health Maintenance Due Date Last Done Comments Hepatitis C Virus (HCV) Screening 1945 Respiratory Syncytial Virus (RSV) Immunization (Adult) (1 - 1-dose 75+ series) 2022 Zoster Immunization (3 of 3) 04/26/2023 03/01/2023, 09/01/2010 DEXA Bone Density 08/04/2023 08/04/2021, 03/14/2020 Influenza Immunization (#1) 2024 02/2 03/2024, 07/28/2022, 05/22/2021, Additional history exists SARS-COV-2 Immunization ( season) 2024 05/30/2022, 10/22/2021, 05/22/2021, Additional history exists TdaP Immunization Completed 04/20/2012 Pneumococcal Immunization (50+ years) Completed 09/22/2023, 08/02/2016, 11/20/2014, Additional history exists Hepatitis B Immunization Aged Out No longer eligible based on patient's age to complete this topic Meningococcal Immunization (ACWY) Aged Out No longer eligible based on patient's age to complete this topic Rotavirus Immunization Aged Out No lo nger eligible based on patient's age to complete this topic Procedures Procedure Name Priority Date/Time Associated Diagnosis Comments MISCELLANEOUS TEST (NOT FOR [place]) Routine 09/19/2024 Mild cognitive impairment from Last 3 Months Results * MISCELLANEOUS TEST (NOT FOR [place]) (09/19/2024) Other 09/19/2024 us Magdy Navarrete MD LAB SEND OUTS Final Result from Last 3 Months Insurance MEDICARE C [facility] Care Teams Embroidery Patternmaker Relationship Specialty Start Date End Date Leana Shi MD [address] [place] [address] PCP - General Geriatric Medicine 05/16/24 Magdy Navarrete MD [address] [place] [address] Consulting Physician Neurology 09/17/24
--- OUTSIDE RECORDS SUMMARY | 2024-11-12 14:49 | XMS_ITS | Encounter Summary ---
Author Organization [facility] Address [address] [place] [address] Phone Care Team Providers Care Cleaner Housekeeping Name Role Phone Leana Shi MD Primary Care Provider [phone] Damon Floyd MD Unavailable [phone] [facility] ClareTom Si, MD Unavailable Encounter Details Date Type Department Care Team (Late st Contact Info) Description 06/09/2020 Orders Only [facility] [address] [place] [address] Scanning, Provider Social History Tobacco Use Types Packs/Day Years Used Date Smoking Tobacco: Never Smokeless Tobacco: Never Alcohol Use Standard Drinks/Week Comments Yes 0 (1 standard drink = 0.6 oz pur e alcohol) PHQ-2 Answer Date Recorded PHQ-2 Total Score (If total score is 3 or more points, staff should administer the PHQ-9) 0 02/29/2020 Comments No Sex and Gender Information Value Date Recorded Sex Assigned at Not on file Legal Sex Female 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 Gender Identity Not on file Sexual Orientation Not on file 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 Not on file Not on file Not on fi le documented as of this encounter Plan of Treatment Not on file documented as of this encounter Procedures Procedure Name Priority Date/Time Associated Diagnosis Comments SCAN - LABS 06/09/2020 documented in this encounter Results * SCAN - LABS (06/09/2020) us Provider Scanning Final Result documented in this encounter Visit Diagnoses Not on filedocumented in this encounter Care Teams Cleaner Housekeeping Relationship Specialty Start Date End Date Leana Shi MD PCP - General 10/22/16 Damon Floyd MD [address] [facility] [address] [place] [address] Consulting Physician Neurology 07/14/18 [facility] ClareTom Si, MD [address] [facility] [address] [place] [id number] Consulting Physician Neurology 06/07/24 documented as of this encounter
--- OUTSIDE RECORDS SUMMARY | 2024-11-12 14:49 | XMS_ITS | Encounter Summary ---
Author Organization [facility] Address [address] [place] [address] Care Team Providers Care Calender Feeder Name Role Phone Leana Shi MD Primary Care Provider + [phone] Damon Floyd MD Unavailable [phone] Tom Tafoya Si, MD Unavailable Encounter Details Date Type Department Care Team (Late st Contact Info) Description 11/09/2024 Telephone [facility] [address] [place] [id number] Leana Shi MD [address] [place] [address] Social History Tobacco Use Types Packs/Day Years Used Date Smoking Tobacco: Never Smokeless Tobacco: Never Alcohol Use Standard Drinks/Week Comments Yes 0 (1 standard drink = 0.6 oz pur e alcohol) PHQ-2 Answer Date Recorded PHQ-2 Total Score (If total score is 3 or more points, staff should administer the PHQ-9) 0 09/22/2023 Comments No Sex and Gender Information Value Date Recorded Sex Assigned at Not on file 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 Patient would like to go to the hospital close to her home--[facility]. Okay to put order in? [phone] documented in this encounter Plan of Treatment Not on file documented as of this encounter Visit Diagnoses Not on filedocumented in this encounter Care Teams Calender Feeder Relationship Specialty Start Date End Date eLana Shi MD PCP - General 10/22/16 Damon Floyd MD [address] [facility] [address] [place] [address] Consulting Physician Neurology 07/14/18 Tom Tafoya Si, MD [address] [facility] [address] [place] [address] Consulting Physician Neurology 06/07/24 documented as of this encounter
--- OUTSIDE RECORDS SUMMARY | 2024-11-12 14:49 | XMS_ITS | Referral Summary ---
Author Organization [facility] [address] Address [address] [place] [address] Phone Care Team Providers Care Odd Piece Checker Name Role Phone Leana Beebe MD Primary Care Provider + [phone] Damon Floyd MD Unavailable [phone] Tom Tafoya Si, MD Unavailable Encounters Date Type Department Care Team Description 11/12/2024 Telephone [facility] [address] [place] [address] Leana Beebe MD Urinary Problem 11/09/2024 Telephone [facility] [address] [place] [address] Leana Beebe MD 10/30/2024 Telephone [facility] [address] [place] [address] Leana Beebe MD 10/02/2024 Telephone [facility] [address] [place] [address] Leana Beebe MD 10/01/2024 11:15 AM CDT Office Visit [facility] [address] [place] [address] Leana Beebe MD Trochanteric bursitis, left hip (Primary Dx); Trochanteric bursitis, right hip; Tinnitus of both ears; Bilateral hearing loss, unspecified hearing loss type; Vestibular disequilibrium involving both inner ears 08/29/2024 Telephone [facility] [address] [place] [address] Leana Beebe MD 08/16/2024 1:00 PM [employer]DRY T[employer] Office Visit [facility] [address] [place] [address] Savannah Herrera NP Dizziness (Primary Dx); Vestibular disequilibrium involving both inner ears; Paroxysmal ventricular tachycardia (HCC); Nodular thyroid disease; History of traumatic head injury 08/14/2024 1:00 PM LAUNDRY TUB MAKER Procedure visit [facility] [address] [facility] [address] [place] [address] [place] [address] Estella Young Au.D. Dizziness from Last 3 Months Allergies Active Allergy Reactions Criticality Noted Date Comments Iodine Anaphylaxis High 05/18/2024 Cardiac arrest on the operating room table when receiving I did needed IV contrast dye in the 1970s Contrast dye Nitrofurantoin Nausea only Low 03/04/2021 Nortriptyline Other (See comments),Unknown Medium 11/25/2017 Dysphagia (patient reports does not remember ever taking this medication) Oxybutynin Other (See comments),Unknown Low 09/22/2023 Can not use medications in his class because of severe dry eye syndrome Medications calcium-vits T8-K-Z1-minerals 166.75 mg- 166.75 unit capsule Take by mouth Act leyla polyethylene glycol (MIRALAX) 17 gram/dose powderIndications: Chronic constipation Take 17 g by mouth nightly In chamomile tea 8-10 oz 850 g 11 03/08/20 23 Active Additional Information Patient not taking.Reported on 10/01/2024 carboxymethylcellu lose sodium (REFRESH LIQUIGEL OPHT) Administer into affected eye(s) Active vibegron 75 mg tabletIndications: Incontinence of urine in female Take 75 mg by mouth daily with breakfast 30 tablet 6 09/22/19 24 Active Additional Information Patient not taking.Reported on 10/01/2024 estradioL (ESTRACE) 0.01 % (0.1 mg/gram) vaginal creamIndications:R ecurrent UTI Insert 2 g into the vagina nightly Apply to vagina nightly 42.5 g 11 12/08/19 24 Active Additional Information Patient not taking.Reported on 10/01/2024 meclizine (ANTIVERT) 25 mg tablet 01/28/20 24 Active ALPRAZolam (XANAX) 0.25 mg tabletIndications: Vestibular disequilibrium involving right inner ear Take 1 tablet (0.25 mg total) by mouth 2 (two) times a day as needed (Vestibular dizziness) 14 tablet 05/10/20 24 Active Additional Information Patient not taking.Reported on 10/01/2024 ciprofloxacin (CIPRO) 500 mg tabletIndications: Recurrent UTI Take 1 tablet (500 mg total) by mouth 2 (two) times a day X 7 days 08/29/19 25 Active Additional Information Patient not taking.Reported on 10/01/2024 sulfamethoxazole-t rimethoprim (BACTRIM DS) 800-160 mg per tabletIndications: Acute cystitis without hematuria Take 1 tablet by mouth 2 (two) times a day for 3 days 6 tablet 10/31/19 25 025 Active Problems Problem Noted Date Diagnosed Date Dizziness 08/22/2024 Paroxysmal ventricular tachycardia 05/22/2024 Overview (05/22/2024): New finding on heart monitoring 05/22/2024. Refer to Cardiology for evaluation: 1. Predominant rhythm is normal sinus rhythm with a minimum heart rate of 46 beats per minute in sinus and a maximum heart rate of 176 beats per minute during a short run of asymptomatic nonsustained V-tach as described below.Average heart rate of 72 beats per minuteTotal monitoring time of 28 days 10 hours 12 minutes. 2. Heart rate and rate variability is appropriate. 3. No prolonged pauses. 4. Rare PACs with 10,713 PACs amounting to less than 1% of total beats. 5. Occasional PVCs with 67,850 PVCs corresponding to 2% of total beats. 6. There were 2 patient activated events with 1 of them associated with dizziness/lightheadedness. That particular episode of dizziness/lightheadedness was associated with sinus rhythm at 97 beats per minute with 1 ventricular couplet. 7. There were 8 auto triggered events most with asymptomatic short runs of nonsustained V-tach: anywhere from 3 beats to 5 beats with heart rates from 138-176 beats per minute. Electronically Signed By: Dr Anderson Washington 2024-05-22 13:55:42 CDT Assessment & Plan (08/23/2024 12:37 PM LAUNDRY TUB MAKER): Chronic, found on recent mobile telemetry monitoring and workup for dizziness. Heart rate regular upon auscultation without murmur today. She has been seen by cardiology for this issue and had a normal ECHO at [facility] with Dr. hopper. No further intervention at this time. Will continue to monitor. Assessment & Plan (07/31/2024 9:09 PM LAUNDRY TUB MAKER): Chronic, found on recent mobile telemetry monitoring and workup for dizziness. Heart rate regular upon auscultation without murmur today. She has been referred to Cardiology but has yet to set up an appointment-encouraged her to do this latosha as she can not complete a stress test at this time. Memory loss or impairment 04/09/2024 Assessment & Plan (07/31/2024 9:04 PM LAUNDRY TUB MAKER): Chronic, worsening in the last 3 months. Has had multiple visits for this complaint, saw neurology as well with no new intervention. Workup including labs, MRI brain, carotid ultrasound, mobile telemetry have all been unrevealing. Mobile telemetry did show several short runs of 5-8 beats of an SVT, for which she has been referred to Cardiology. BP stable, orthostatics negative. No recent echo in chart, unable to complete stress test at this time due to dizziness. B12 level was elevated-she is not on any oral supplementation, MMA was normal in April. Vitamin-D levels normal. Writing everything down seems to be keeping her somewhat on track and her daughter has been helping her, there are no new or acute findings on exam today. We will recheck TSH, free T4, free T3, TPO today. Keep follow with Dr. Beebe next week. Assessment & Plan (04/20/2024 3:55 PM CDT): complaining of short term memory issues in last 3 weeks as described above. H/o TBI In 2018. Dizziness upon standing, altered word recall on Mini-Cog. No other acute findings or neurological deficits on exam.vitals stable. MRI 2 days ago showed 1. No acute/recent infarction. 2. Interhemispheric falx tiny signal alteration as above could be dural base ossification/calcification or sequelae of old trace subdural blood products given history of traumatic brain injury. No significant mass effect or midline shift. 3. Chronic microvascular ischemic type white-matter changes. . PMH of carotid stenosis, no bruit-will repeat dopplers today. EKG last week showed sinus jet at 56bpm with no ectopy or ischemic changes. No recent ECHO in chart. CMP, CBC, TSH were unremarkable. Will refer to PT for vestibular therapy and will refer to Neurology for further assessment. Addendum:No recent lipid testing, will recheck lipids as well. Assessment & Plan (04/09/2024 7:57 PM CDT): Acute, worse in the last 3 weeks. See HPI for details. Altered word recall, questionable lisp, dizziness upon standing noted on exam, vitals stable. No other acute findings or neurological deficits on exam today. No recent brain imaging in chart. EKG in office today shows sinus Jet with no ectopy or ischemic changes. We will check labs, UA, and obtain MRI brain without contrast to rule out any acute changes. Follow in 1 week Overactive bladder 04/09/2024 Assessment & Plan (04/09/2024 7:54 PM CDT): Chronic, controlled with Myrbetriq. Still admits frequent nocturia, and complaining of confusion as noted above. We will check UA with reflex culture today to rule out UTI. Push fluids Vitamin D deficiency 04/09/2024 Kidney stone 03/04/2021 Carotid stenosis, asymptomatic, right 02/15/2019 Overview (08/22/2024): 03/2024 bilateral carotids with less than 50% stenosis. January 2019 Mild right carotid stenosis documented on [facility] screening, no further testing ordered yet. Assessment & Plan (07/31/2024 9:08 PM LAUNDRY TUB MAKER): Chronic, controlled. Carotid Dopplers from 03/2024 unremarkable. See plan for vestibular disequilibrium above. Assessment & Plan (04/20/2024 3:55 PM CDT): Recheck carotid dopplers today due to persistent floater in R eye and memory changes. History of traumatic head injury 06/22/2018 Overview (02/29/2020): Resulted in imbalance, mild memory impairment that improved over 2 years by 2019 Assessment & Plan (04/20/2024 3:54 PM CDT): Chronic, sustained in 2017. 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 Dizziness upon standing, altered word recall on Mini-Cog. No other acute findings or neurological deficits on exam.vitals stable. MRI 2 days ago showed 1. No acute/recent infarction. 2. Interhemispheric falx tiny signal alteration as above could be dural base ossification/calcification or sequelae of old trace subdural blood products given history of traumatic brain injury. No significant mass effect or midline shift. 3. Chronic microvascular ischemic type white-matter changes. . PMH of carotid stenosis, no bruit-will repeat dopplers today. EKG last week showed sinus jet at 56bpm with no ectopy or ischemic changes. No recent ECHO in chart. CMP, CBC, TSH were unremarkable. Will refer to PT for vestibular therapy and will refer to Neurology for further assessment. Addendum:No recent lipid testing, will recheck lipids as well. Assessment & Plan (04/09/2024 7:49 PM CDT): Chronic, sustained in 2017. Had no residuals after symptoms had fully resolved, however now complaining of short term memory issues as described above. Dizziness upon standing, questionable lisp, altered word recall on Mini-Cog. No other acute findings or neurological deficits on exam. We will check labs and MRI brain without contrast today. Nodular thyroid disease 11/25/2017 Assessment & Plan (07/31/2024 8:52 PM LAUNDRY TUB MAKER): Chronic, controlled without medications at this time. See HPI for details. Last thyroid ultrasound from 2018 was unremarkable-showed stable nodules. Disequilibrium on exam, no other neurological deficits or acute findings. Last TSH done 03/2024 was mildly elevated at 6.36. Recent neurology consult expressed concern, we will recheck TSH, free T4, free T3, and TPO today. Vestibular disequilibrium involving both inner e ars 05/29/2014 Overview (08/15/2024): Vestibular studies done August 13, 2024 There is no electrophysiological evidence of a peripheral or central vestibular system impairment affecting the lateral semicircular canals and/or the superior portion of the vestibular nerves. Pending medical correlation from her Neurologist and/or her PCP, consideration of a referral to Physical Therapy for balance re-training. Ira Toussaint Assessment & Plan (08/23/2024 12:33 PM LAUNDRY TUB MAKER): Dizziness Intermittent dizziness has worsened over the past few weeks. Audiological testing and MRI results are normal. Thyroid levels are slightly high but not concerning. Refer back to neurology for further evaluation and order vestibular physical therapy. Assessment & Plan (07/31/2024 9:07 PM LAUNDRY TUB MAKER): Acute, intermittent, mostly when sitting to standing or turning head quickly. Past medical history of TBI in 2018 noted- Complaining of memory issues. See HPI for details. MRI brain done 03/2024 showed old changes and chronic microvascular disease. Admits mild improvement with vestibular therapy from PT. Mobile telemetry did show several short runs of 5-8 beats of an SVT, for which she has been referred to Cardiology. BP stable, orthostatics negative. No recent echo in chart, unable to complete stress test at this time due to dizziness. B12 level was elevated-she is not on any oral supplementation, MMA was normal in April. Vitamin-D levels normal. We will recheck TSH, free T4, free T3, TPO today. Continue meclizine p.r.n. Keep follow with Dr. Beebe next week. Assessment & Plan (05/22/2024 8:59 PM CDT): >>ASSESSMENT AND PLAN FOR VERTIGO WRITTEN ON 03/09/2022 2:35 PM BY SAVANNAH HERRERA NP Presents with dizziness worse with position changes and tinnitus in R ear. Neuro exam intact, no acute findings on exam. Will refer to PT for Wily angel. Enouraged Flonase use. Offered Meclizine, patient refused. Keep follow up with Dr. beebe next month. Call with any changes/concerns. Assessment & Plan (05/22/2024 8:59 PM CDT): >>ASSESSMENT AND PLAN FOR VERTIGO WRITTEN ON 04/09/2024 7:50 PM BY SAVANNAH HERRERA NP Acute, intermittent, mostly when sitting to standing. See HPI for details. Orthostatic BP negative in office today. Past medical history of TBI in 2018 noted- Complaining of memory issues. No recent brain imaging in chart. Altered word recall on mini cog and admitted short term memory loss, questionable intermittent lisp but speech is otherwise clear without aphasia. No other acute findings or neurological deficits on exam. EKG in office today shows sinus Jet with no ectopy or ischemic changes. We will order a 30 day telemetry monitoring. We will check CMP CBC TSH magnesium vitamin-D and UA with reflex culture today. We will obtain MRI of brain without contrast to rule out stroke, TIA, mass, or any other acute changes. Advised to avoid any [id number] medicines at this time. Push fluids. Follow in 1 week Assessment & Plan (05/22/2024 8:59 PM CDT): >>ASSESSMENT AND PLAN FOR VERTIGO WRITTEN ON 04/20/2024 3:24 PM BY SAVANNAH HERRERA NP Acute, intermittent, mostly when sitting to standing or turning head quickly. Past medical history of TBI in 2018 noted- Complaining of memory issues. See HPI for details. MRI brain done 04/17 showed old changes and chronic microvascular disease. Altered word recall on mini cog and admitted short term memory loss, speech clear. Gait steady without assistance. No other acute findings or neurological deficits on exam. Repeat UA today after finishing keflex for UTI the grew E coli-results pending. EKG in office last week showed sinus Jet with no ectopy or ischemic changes. PMH of carotid stenosis noted, will check dopplers today. REFER to neurology for further assessment and h/o TBI. REFER to PT for vestibular therapy for vertigo. Medullary sponge kidney 12/08/2013 Overview (10/30/2016): Medullary sponge kidney Assessment & Plan (08/29/2019 12:25 PM LAUNDRY TUB MAKER): Continue on the special kidney diet that Dr. JAMES gave last time. Recurrent UTI 12/08/2013 Overview (10/30/2016): Recurrent urinary tract infection Assessment & Plan (04/20/2024 3:25 PM CDT): Finished 7 day course of keflex today for UTI that grew E.coli. had repeat UA done this AM- results pending. No symptoms or abnormal exam findings. Will continue to monitor. 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 Saw eye doctor 2 weeks ago with no concerns. Will check carotid dopplers today. See plan for memory loss above. Trochanteric bursitis, right hip 03/08/2023 09/22/2023 Other chest pain 10/05/2022 09/22/2023 Assessment & Plan (10/05/2022 7:28 PM CDT): Likely related to fall onto bathtub. Admits they did a CXR at [facility] that showed bruisied rib. - no records. Tenderness as noted above. OTC meds for pain as needed. Splinting may help also. Heat/ice as tolerated. Call with any changes or concerns. Fall from or off toilet w st rike against object, subs 10/05/2022 08/22/2024 Assessment & Plan (10/05/2022 7:30 PM CDT): approx 1 week ago after a coughing fit, fell into side of bathtub. See plan for other chest pain above. Cough and COVID symptoms are gone. No acute findings on exam. COVID-19 10/05/2022 09/22/2023 Assessment & Plan (10/05/2022 7:31 PM CDT): Symptoms lasted approximately 5-7 days and resolved with only OTC treatments. Fall after a coughing fit as noted above. Was seen in [facility] after fall-no records. No acute findings on exam today. Chronic kidney disease 09/28/2022 Assessment & Plan (10/05/2022 7:26 PM CDT): BUN/creatinine still stable. Will re-check CMP, CBC, LDL before annual exam in 6 months. 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 09/22/2023 Overview (03/04/2021): New finding Diminished elasticity of the vulvar skin, thinning of the labia minora, introital narrowing, dry and pale color perineal tissue with fusing of the labia Started estrogen cream Personal history of colonic polyps 03/14/2020 09/22/2023 Medication monitoring encounter 03/14/2020 05/22/2024 Hyperthyroidism determined b y thyroid function test 02/11/2019 02/29/2020 Overview (02/11/2019): Began one-month in to Synthroid 0.1 mg Abnormal weight loss 02/07/2019 020 Overview (02/07/2019): Added automatically from request for surgery [id number] Assessment & Plan (08/29/2019 12:26 PM LAUNDRY TUB MAKER): Weight remains stable, and she reports a good appetite. Nausea 02/07/2019 02/29/2020 Overview (02/07/2019): Added automatically from request for surgery [id number] Bilateral occipital neuralgia 02/02/2019 02/29/2020 Hypothyroidism, adult 12/22/20182019 Assessment & Plan (08/29/2019 12:23 PM LAUNDRY TUB MAKER): TSH today is a little high at 5.5. Advised that we start on a very small dose of levothyroxine and pt does not want to do this. She states that she does not want to be on a medication for it. I will recheck this again in 6 months before her annual with DR. JAMES. Intractable chronic post-traumatic headache 12/21/2018 02/29/2020 Syncope and collapse 06/22/2018 020 Overview (02/15/2019): [facility] screening January 2019 mild right carotid stenosis advise recheck in 2 years Cause of injury, fall 06/22/20182019 Concussion with loss of consciousness 06/22/2018 02/29/2020 Overview (06/22/2018): Dog fight on a dog walk, fell backwards and hitting back of head -- lost concousness and has no recollection of 3 hours of time Multiple-type hyperlipidemia 11/25/2017 02/29/2020 Assessment & Plan (09/01/2019 10:16 AM LAUNDRY TUB MAKER): Check follow up lipid panel for review with Dr. Tejal Beebe at annual. Influenza 09/06/2014 02/29/2020 Overview (10/29/2016): Influenza Cough 09/06/2014 02/29/2020 Overview (10/29/2016): Cough Trochanteric bursitis 12/08/20132019 Overview (10/29/2016): Trochanteric bursitis of both hips Hot flashes due to menopause 11/22/2012 02/29/2020 Overview (10/27/2016): Menopausal syndrome (hot flashes) Immunizations Immunization Administration Dates Next Due Flucelvax Influenza Quad 07/28/2022 Influenza, Quadrivalent, Hig h Dose, Preservative Free, Intrr 09/22/2023,05/22/2021 Influenza, Split 05/07/2013 Influenza, Trivalent, High D ose, Split, Preservative Free, Intramuscular 05/23/2019 Influenza, Trivalent, IM (MDV) 07/28/2015,2013 Influenza, Unspecified 05/16/2023(Deferr ed: Patient Refused),05/22/2021,07/15/2020 Pfizer SARS-CoV-2 Monovalent Vaccination (12+ Yrs) PURPLE 09/19/2020,08/29/2020 Pfizer Sars-Cov-2 Bivalent V accination (12+ YRS) 05/31/2022,05/30/2022 Pneumococcal Conjugate PCV 13 11/20/2014 Pneumococcal Conjugate Pcv20 09/22/2023 Pneumococcal Polysaccharide PPV23 08/02/2016, Tdap 04/20/2012 ZOSTER LIVE 09/01/2010 ZOSTER Recombinant 03/01/2023 Social History Tobacco Use Types Packs/Day Years [...] on file Legal Sex Female 8:12 AM LAUNDRY TUB MAKER Gender Identity Not on file Sexual Orientation Not on file 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 Not on file Not on file Not on fi le Last Filed Vital Signs Vital Sign Reading Time Taken Comments Blood Pressure 130/68 10/01/2024 11:59 AM CDT Pulse 60 10/01/2024 11:59 AM CDT Temperature 36.1 C (96.9 F) 10/01/2024 11:59 AM CDT Respiratory Rate 18 10/01/2024 11:59 AM CDT Oxygen Saturation 97% 10/01/2024 11:59 AM CDT Inhaled Oxygen Concentration - - Weight 72.1 kg (159 lb) 10/01/2024 11:59 AM CDT Height 171.5 cm (5' 7.5 ) 10/01/2024 11:59 AM CD T Body Mass Index 24.54 10/01/2024 11:59 AM CDT Plan of Treatment Not on file Procedures Procedure Name Priority Date/Time Associated Diagnosis Comments SCREENING MAMMOGRAM BILATERAL W SAV Schedule Routine, Read Routine (OP Routine) 11/01/2023 10:42 AM CDT Breast cancer screening by mammogram DEXA AXIAL SKELETON BONE DENSITY 1 OR MORE SITES Schedule Routine, Read Routine (OP Routine) 08/04/2021 10:13 AM LAUNDRY TUB MAKER Menopause COLONOSCOPY 03/28/2020 8:49 AM CDT HEPATITIS C ANTIBODY Routine 08/02/2016 10:03 AM LAUNDRY TUB MAKER from Last 3 Months or Most Recently Relevant to Health Maintenance Results * Screening Mammogram Bilateral W Sav (11/01/2023 10:42 AM CDT) Anatomical Region Laterality Modality Breast Bilateral Mammography 11/01/2023 1:40 PM CDT Impressions 11/01/2023 1:40 PM CDT There is no mammographic evidence of malignancy. A 1 year screening mammogram is recommended. BI-RADS: 1 - Negative. The patient has been or will be contacted. The patient will be entered into a reminder system with a target due date of 1 year for her next mammogram. Electronically signed by: Caitlyn Rae 11/01/2023 1:40 PM CDT EXAMINATION: SCREENING MAMMOGRAM BILATERAL W SAV ORDERING HEALTHCARE PROVIDER: LEANA BEEBE HISTORY: Routine screening mammography. COMPARISON: 10/26/2022, 08/04/2021, 03/14/2020 TECHNIQUE: CC and MLO views of the bilateral breasts were obtained with digital technique using breast tomosynthesis with C view. Computer aided detection was utilized. FINDINGS: DENSITY: There are scattered fibroglandular elements in the bilateral breasts. BREASTS: There are no suspicious masses, suspicious calcifications, or other suspicious findings in either breast. There has been no suspicious interval change. us Leana Beebe MD IM MAMMO PROCEDURES Final Result * Dexa Axial Skeleton Bone Density 1 or 2 Site (08/04/2021 10:13 AM LAUNDRY TUB MAKER) Anatomical Region Laterality Modality Body N/A Other 08/04/2021 11:3 1 AM LAUNDRY TUB MAKER Narrative 08/04/2021 11:33 AM LAUNDRY TUB MAKER EXAM DESCRIPTION: DEXA AXIAL SKELETON BONE DENSITY 1 OR MORE SITES REASON FOR STUDY: 76 y/o year old F with given history of screening. 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 FINDINGS: AP LUMBAR SPINE L1-L4: Total BMD is 0.854 g/cm2 T-score is -1.8 This is not a statistically significant change from prior exam. LEFT HIP: Total BMD is 0.857 g/cm2 T-score is -0.7 This is not a statistically significant change from prior exam. Femoral neck BMD is 0.726 g/cm2 T-score is -1.1 IMPRESSION: Based on the lumbar spine bone mineral density (T-score -1.8) the patient has low bone mass. Fracture risk assessment (FRAX): 10 year risk for a major osteoporotic fracture is 10 % 10 year risk for a hip fracture is 1.6 % The FRAX tool has not been validated in patients currently or previously treated with pharmacotherapy for osteoporosis. In such patients, clinical judgement must be exercised in interpreting FRAX scores as the fracture risk may be overestimated. REFERENCE: Bone mineral density: Normal (T-score above or = -1.0) Low bone mass (T-score between -1.0 and -2.5) replaces the previously used term osteopenia Osteoporosis (T-score = or below -2.5) Medical evaluation for secondary causes of low bone mineral density may be appropriate. FRAX is a World Health Organization validated fracture risk assessment tool that calculates a person's 10 year probability of a major osteoporosis related fracture and hip fracture. According to the National Osteoporosis Foundation guidelines, postmenopausal women and men age 50 or older with low bone mass and a 10 year probability of a major osteoporosis related fracture = or greater than 20% or a 10 year probability of a hip fracture = or greater than 3% should be considered for treatment. For further information, including treatment recommendations, please refer to the 2013 ISCD Official Positions (http://www.iscd.org) and the NOF's Clinician's Guide to Prevention and Treatment of Osteoporosis (http://www.nof.org/professionals/clinical-guidelines) THIS IS AN ELECTRONICALLY VERIFIED FINAL REPORT 08/04/2021 11:33 AM - Electronically signed by Damon Larose M.D. MF: [id number] Report ID: [id number] Reading Location: [id number] Procedure Note Damon Larose MD - 08/04/2021 EXAM DESCRIPTION: DEXA AXIAL SKELETON BONE DENSITY 1 OR MORE SITES REASON FOR STUDY: 76 y/o year old F with given history ofscreening. 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 FINDINGS: AP LUMBAR SPINE L1-L4: Total BMD is 0.854 g/cm2 T-score is -1.8 This is not a statistically significant change from prior exam. LEFT HIP: Total BMD is 0.857 g/cm2 T-score is -0.7 This is not a statistically significant change from prior exam. Femoral neck BMD is 0.726 g/cm2 T-score is -1.1 IMPRESSION: Based on the lumbar spine bone mineral density (T-score -1.8) thepatient has low bone mass. Fracture risk assessment (FRAX): 10 year risk for a major osteoporotic fracture is 10 % 10 year risk for a hip fracture is 1.6 % The FRAX tool has not been validated in patients currently or previously treated with pharmacotherapy for osteoporosis. In such patients, clinical judgement must be exercised in interpreting FRAX scores as the fracturerisk may be overestimated. REFERENCE: Bone mineral density: Normal (T-score above or = -1.0) Low bone mass (T-score between -1.0 and -2.5) replaces thepreviously used term osteopenia Osteoporosis (T-score = or below -2.5) Medical evaluation for secondary causes of low bone mineral density may be appropriate. FRAX is a World Health Organization validated fracture risk assessmenttool that calculates a person's 10 year probability of a major osteoporosisrelated fracture and hip fracture. According to the National OsteoporosisFoundation guidelines, postmenopausal women and men age 50 or older with low bonemass and a 10 year probability of a major osteoporosis related fracture = or greater than 20% or a 10 year probability of a hip fracture = or greaterthan 3% should be considered for treatment. For further information, including treatment recommendations, please referto the 2013 ISCD Official Positions (http://www.iscd.org) and the NOF's Clinician's Guide to Prevention and Treatment of Osteoporosis (http://www.nof.org/professionals/clinical-guidelines) THIS IS AN ELECTRONICALLY VERIFIED FINAL REPORT 08/04/2021 11:33 AM - Electronically signed by Damon Larose M.D. MF: [id number] Report ID: [id number] Reading Location: [id number] Leana Beebe MD IMG DXA PROCEDURES Final R esult * COLONOSCOPY (03/28/2020 8:49 AM CDT) Anatomical Region Laterality Modality Other Narrative Procedure Note Paula Black MD - 03/28/2020 8:49 AM CDT [facility] Patient Name: Sofia Magana Procedure Date: 03/28/2020 8:49 AM Date of : 1945 Admit Type: Outpatient Age: 75 Gender: Female Attending MD: Paula Black M.D. Room: [facility] ENDOSCOPY ROOM 1 Note Status: Finalized Patient Profile: This is a 75 year old female. No family history of colon cancer. Screening. Procedure: Colonoscopy Indications: Screening for colorectal malignant neoplasm, Last colonoscopy: September 2009 Referring MD: Leana Beebe M.D. Providers: Paula Black M.D. Impression: - One 6 mm polyp in the transverse colon, removedwith a jumbo cold forceps. Resected and retrieved. - Internal hemorrhoids. Recommendation: - Await pathology results. - Repeat colonoscopy in 5 years for screeningpurposes. - Continue present medications. Medicines: Monitored Anesthesia Care Complications: No immediate complications. Estimated Blood Loss: Estimated blood loss: none. Procedure: Pre-Anesthesia Assessment: - Prior to the procedure, a History and Physical was performed, and patient medications and allergieswere reviewed. The patient's tolerance of previous anesthesia was also reviewed. The risks and benefitsof the procedure and the sedation options and riskswere discussed with the patient. All questions were answered, and informed consent was obtained. Prior Anticoagulants: The patient has taken no previous anticoagulant or antiplatelet agents. ASA Grade Assessment: II - A patient with mild systemicdisease. After reviewing the risks and benefits, the patientwas deemed in satisfactory condition to undergo the procedure. The benefits, risks and alternatives of theprocedure and sedation were discussed and informed consent was obtained. All questions were answered. Please referto the signed informed consent document in the medical record. Bowel prep was administered using a splitdose. The bowel preparation used was Miralax. The bowel preparation used was bisacodyl tablets. The scopewas passed under direct vision. The PediatricColonoscope [id number]-[id number] was introduced through the anusand advanced to the the cecum, identified by appendiceal orifice and ileocecal valve. The quality of thebowel preparation was good. Findings: The perianal and digital rectal examinations were normal. The cecum appeared normal. The ascending colon appeared normal. A 6 mm polyp was found in the transverse colon. The polyp wassessile. The polyp was removed with a jumbo cold forceps. Resection andretrieval were complete. The descending colon appeared normal. The sigmoid colon wasunremarkable. Internal hemorrhoids were found during retroflexion. The hemorrhoids were small. Electronically signed by Paula Black M.D. Paula Black M.D. 03/28/2020 11:04:04 AM Number of Addenda: 0 Note Initiated On: 03/28/2020 8:49 AM Procedure Code(s): --- Professional --- 81027, Colonoscopy, flexible; with biopsy, single or multiple Diagnosis Code(s): --- Professional --- Z12.11, Encounter for screening for malignant neoplasm of colon K64.8, Other hemorrhoids D12.3, Benign neoplasm of transverse colon (hepatic flexure orsplenic flexure) CPT copyright 2017 [employer]. All rights reserved. The codes documented in this report are preliminary and upon sales engineer engineered products reviewmay be revised to meet current compliance requirements. Recognized by the [place] [employer] for promoting quality in endoscopy Paula Black MD ENDOSCOPY PROCEDURES Final Result * Hepatitis C antibody (08/02/2016 10:03 AM LAUNDRY TUB MAKER) SIGNAL TO CUT-OFF 0.03 <1.00 [facility] HISTORICAL RESULTS Comment: REPORT COMMENT: FASTING:UNKNOWN Test performed at [facility] [address] [place] [address] Director: LEONARD CUENCA DO,MPH Hep C Ab NON-REACT LEYLA NON-REACT LEYLA [facility] HISTORICAL RESULTS 08/02/2016 10:0 3 AM LAUNDRY TUB MAKER Leana Beebe MD LAB MICROBIOLOGY - GENERAL ORDERABLES Final Result [facility] HISTORICAL RESULTS from Last 3 Months or Most Recently Relevant to Health Maintenance Insurance MEDICARE COMMERCIAL GENERIC COMMERCIAL GENERIC [place] [id number] [facility] [address] MEDICARE ADVANTAGE MEDICARE [facility] MEDICARE ADVANTAGE AET[employer] SENIOR SUPPLEMENT Advance Directives For more information, please contact: [phone] Documents on File Type Date Recorded Patient Convict Guard Expl anation ADVANCE DIRECTIVE 12/21/2018 3:19 PM DNR ADVANCE DIRECTIVE 08/21/2010 POWER OF A [employer]TORNEY-[employer]ICAL * Full Code (Latest Code Status on File) Date Activated Date Inactivated Comments 03/28/2020 8:48 AM 03/28/2020 4:00 PM * Full Code Date Activated Date Inactivated Comments 03/28/2020 8:48 AM 03/28/2020 8:48 AM * Full Code Date Activated Date Inactivated Comments 02/12/2019 9:52 AM 02/12/2019 4:44 PM * Full Code Date Activated Date Inactivated Comments 02/12/2019 9:52 AM 02/12/2019 9:52 AM Care Teams Odd Piece Checker Relationship Specialty Start Date End Date Leana Beebe MD PCP - General 10/22/16 Damon Floyd MD [address] [place] [address] Consulting Physician Neurology 07/14/18 Tom Tafoya Si, MD [address] [place] [address] Consulting Physician Neurology 06/07/24
--- OUTSIDE RECORDS SUMMARY | 2024-11-12 14:49 | XMS_ITS | Clinical Summary ---
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 Gender Identity Not on file Sexual Orientation Not on file Plan of Treatment Health Maintenance Due Date Last Done Comments Hepatitis C 1963 DTaP, Tdap and Td Vaccines ( 1 - Tdap) 1966 Pneumococcal Vaccine: 50+ Ye ars (1 of 1 - PCV) 1997 Zoster Vaccines (1 of 2) 1997 Dexa Scan (General) 01/12/2012 RSV Immunization or 60+ Years (1 - 1-dose 75+ series) 2022 COVID-19 Vaccine ( - 2023-2 5 season) 2024 Meningococcal B Vaccine Aged Out No l onger eligible based on patient's age to complete this topic Meningococcal Vaccine Aged Out No nicholas sarina eligible based on patient's age to complete this topic RSV Immunizations Under 20 Months Aged Out No longer eligible based on patient's age to complete this topic
--- OUTSIDE RECORDS SUMMARY | 2024-11-12 14:49 | XMS_ITS | Encounter Summary ---
Author Organization [facility] Address [address] [place] [address] Phone Care Team Providers Care Machine Stitcher Name Role Phone Leana Shi MD Primary Care Provider [phone] Damon Floyd MD Unavailable [phone] [facility] Un[facility] Encounter Details Date Type Department Care Team (Late st Contact Info) Description 05/20/2020 Orders Only [facility] [address] [place] [address] Scanning, Provider Social History Tobacco [...] on file Legal Sex Female 8:12 AM CASSEROLE PREPARER Gender Identity Not on file Sexual Orientation Not on file 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 Not on file Not on file Not on fi le documented as of this encounter Plan of Treatment Not on file documented as of this encounter Procedures Procedure Name Priority Date/Time Associated Diagnosis Comments SCAN - RADIOLOGY/IMAGING 05/20/2020 documented in this encounter Results * SCAN - RADIOLOGY/IMAGING (05/20/2020) Anatomical Region Laterality Modality Other us Provider Scanning Final Result documented in this encounter Visit Diagnoses Not on filedocumented in this encounter Care Teams Machine Stitcher Relationship Specialty Start Date End Date Leana Shi MD PCP - General 10/22/16 Damon Floyd MD [address] [place] [address] Consulting Physician Neurology 07/14/18 [facility] [address] [place] [address] Consulting Physician Neurology 06/07/24 documented as of this encounter
--- OUTSIDE RECORDS SUMMARY | 2024-11-12 14:49 | XMS_ITS | CONTINUITY OF CARE DOCUMENT ---
Author Name julitaemry julitamery Address Unknown Organization [facility] Address [address] [facility] [address] [place] [address] Phone [phone] Care Team Providers Care Sculpture Instructor Name Role Phone Marciano Gardner MD Unavailable KELLEN BEEBE MD Unavailable PROBLEMS Condition Status Date Provider Notes Cardiology examination active Marciano Gardner MD Dizziness active Marciano Gardner MD Ventricular tachycardia, nonsustained active 5 Marciano Gardner MD ENCOUNTERS Date Type Provider Location Encounter Diag nosis 0 - 0 In-person encounter Office Visit Marciano Gardner MD [facility] 5 - 5 In-person encounter Office Visit Marciano Gardner MD [facility] Cardiology examinationDizzinessVentricular tachycardia, nonsustained VITAL SIGNS Date Observation Value Provider Body Mass Index (Ratio) 25.98 kg/m2 Quinn Gardner MD blood pressure, cuff size regular Ke rachel Dillard blood pressure, diastolic 90 mm[Hg] Kavon Dillard blood pressure, systolic 142 mm[Hg] Feliciano Dillard oxygen saturation, oximetry 98 % Annabel Dillard pulse rate 66 /min Annabel baroner weight E&M 161 [lb_av] Annabel baroner height E&M 66 [in_i] Annabel Dennis lder Body Mass Index (Ratio) 26.14 kg/m2 Quinn Gardner MD blood pressure, diastolic 70 mm[Hg] Brigid nkLogic blood pressure, systolic 124 mm[Hg] Lori kLogic blood pressure, cuff size regular Ke rri Nishant blood pressure, diastolic 70 mm[Hg] Ke rri Nishant blood pressure, systolic 124 mm[Hg] Feliciano alek Dillard oxygen saturation, oximetry 99 % Annabel Dillard pulse rate 82 /min Annabel Dennis lder weight E&M 162 [lb_av] Annabel Dennis lder height E&M 66 [in_i] Annabel Dennis er ALLERGIES Allergy Name Onset Date Reaction Criticality Status IODINE High Criticality active HISTORY OF MEDICATION USE Medication Status Instructions Dates Provider Indications Com ments alprazolam 0.25 mg tablet active Annabel Dillard hydrocodone-aceta minophen 5-325 mg tablet active as needed for pain Annabel Dillard valacyclovir 1 gram tablet active take 1 pill a day Annabel Dillard meclizine 25 mg tablet active as needed Annabel Dillard SOCIAL HISTORY Date Observation Value Provider number of grandchildren Marciano Gardner MD INSURANCE PROVIDERS Payer name Policy type / Coverage type Shirley red republican ID [employer] Commercial insurance [place] MEDICARE PART B Medicare [id number] ADVANCE DIRECTIVES Name Date DISCUSSED - NO DECISION MADE TREATMENT PLAN Date Name Performer Cardiology Marciano aGrdner MD Cardiology Marciano Gardner MD Date Name Carotid Duplex Bilat eral Stress Regadenoson Complete Echo HISTORY OF PROCEDURES Procedure Date Procedure Name Provider Procedure Notes S tatus EKG Marciano Gardner MD complete d
--- OUTSIDE RECORDS SUMMARY | 2024-11-12 14:49 | XMS_ITS | Encounter Summary ---
Author Organization [facility] Address [address] [place] [address] Care Team Providers Care Java Web Services Developer Name Role Phone Leana Shi MD Primary Care Provider [phone] Damon Floyd MD Unavailable [phone] Tom Tafoya Si, MD Unavailable Reason for Visit * Reason Onset Date Comments Urinary Problem 11/12/2024 Encounter Details Date Type Department Care Team (Late st Contact Info) Description 11/12/2024 Telephone [facility] [address] [place] [address] Leana Shi MD [address] [place] [address] Urinary Problem Social History Tobacco Use Types Packs/Day Years [...] on file Legal Sex Female 8:12 AM CONSULTING SOLUTION MANAGER Gender Identity Not on file Sexual Orientation Not on file 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 Not on file Not on file Not on le documented as of this encounter Miscellaneous Notes * Telephone Encounter - Umm Quiroz RN - 11/12/2024 11:54 AM CDT Called and spoke with the pt She states that she tried to call the office but we were already closed Pt has has Pain Burning Since Tuesday Pt denies any Blood in the urine Fever Or back pain Pt has had a UTI every month 08/29/2024 10/02/2024 11/12/2024 Pt will go to [facility] and give a ua There was a antibiotic at [facility] that can be refilled They will get is ready for the pt to milk pickup truck driver Called and got a fax number to fax the urine order [phone] Pt is aware of the procedure and will see Dr Shi 11/15/2024 Faxed a order to [facility] * Telephone Encounter - Zulema Sr - 11/12/2024 9:33 AM CDT Patient is calling to state that she thinks she a reoccurring UTI. Pt is complaining about painful urination, and going frequently since Tuesday. Pt is wondering if she could get something called in Please advise Pt cbn: [phone] [facility] [place] documented in this encounter Plan of Treatment Scheduled Orders Name Type Priority Associated Diagnoses Orde r Schedule Urinalysis reflex to microscopic and culture Urine, bladder Microbiology Routine Acute cystitis without hematuria Expected: 11/12/2024, Expires: 11/12/2025 documented as of this encounter Visit Diagnoses Diagnosis Acute cystitis without hematuria- Primary documented in this encounter Care Teams Java Web Services Developer Relationship Specialty Start Date End Date Leana Shi MD PCP - General 10/22/16 Damon Floyd MD [address] [place] [address] [place] [address] Consulting Physician Neurology 07/14/18 [facility], Tom Chacon MD [address] [place] [address] Consulting Physician Neurology 06/07/24 documented as of this encounter
--- OUTSIDE RECORDS SUMMARY | 2024-11-12 14:49 | XMS_ITS | Encounter Summary ---
Author Organization [facility] Address [address] [place] [address] Phone Care Team Providers Care Third Miller Name Role Phone Leana Shi MD Primary Care Provider [phone] Damon Floyd MD Unavailable [phone] [facility] Unavailable Encounter Details Date Type Department Care Team (Late st Contact Info) Description 09/16/2022 Orders Only [facility] [address] [place] [address] Leana Shi MD [address] [place] [address] Social History Tobacco Use Types Packs/Day Years Used Date Smoking Tobacco: Never Smokeless Tobacco: Never Alcohol Use Standard Drinks/Week Comments Yes 0 (1 standard drink = 0.6 oz pur e alcohol) PHQ-2 Answer Date Recorded PHQ-2 Total Score (If total score is 3 or more points, staff should administer the PHQ-9) 0 04/09/2022 Comments No Sex and Gender Information Value Date Recorded Sex Assigned at Not on file Legal Sex Female 8:12 AM BACK TENDER Gender Identity Not on file Sexual Orientation Not on file 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 Not on file Not on file Not on fi le documented as of this encounter Plan of Treatment Not on file documented as of this encounter Procedures Procedure Name Priority Date/Time Associated Diagnosis Comments SCAN - RADIOLOGY/IMAGING 09/16/2022 SCAN - LABS 09/16/2022 documented in this encounter Results * SCAN - LABS (09/16/2022) us Leana Shi MD Final Resu lt * SCAN - RADIOLOGY/IMAGING (09/16/2022) Anatomical Region Laterality Modality Other us Leana Shi MD Final Resu lt documented in this encounter Visit Diagnoses Not on filedocumented in this encounter Care Teams Third Miller Relationship Specialty Start Date End Date Leana Shi MD PCP - General 10/22/16 Damon Floyd MD [address] [facility] [place] [address] Consulting Physician Neurology 07/14/18 Tom Tafoya Si, MD [address] [place] [address] Consulting Physician Neurology 06/07/24 documented as of this encounter
--- OUTSIDE RECORDS SUMMARY | 2024-11-12 14:49 | XMS_ITS | Encounter Summary ---
Author Organization [facility] Address [address] [place] [address] Phone Care Team Providers Care Job Setter Honing Name Role Phone Leana Shi MD Primary Care Provider [phone] Damon Floyd MD Unavailable [phone] Mattie Khoury Unavailable [phone] [facility] Unavailable Encounter Details Date Type Department Care Team (Late st Contact Info) Description 12/08/2017 Orders Only [facility] [address] [place] [address] Leana Shi MD [address] [place] [address] Social History Tobacco Use Types Packs/Day Years Used Date Smoking Tobacco: Never Smokeless Tobacco: Never Alcohol Use Standard Drinks/Week Comments No 0 (1 standard drink = 0.6 oz pur e alcohol) Comments No Sex and Gender Information Value Date Recorded Sex Assigned at Not on file Legal Sex Female 8:12 AM AGILE PROJECT MANAGER Gender Identity Not on file Sexual Orientation Not on file 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 Not on file Not on file Not on fi le documented as of this encounter Plan of Treatment Not on file documented as of this encounter Procedures Procedure Name Priority Date/Time Associated Diagnosis Comments SCAN - LABS 12/08/2017 11:30 AM CDT documented in this encounter Results * SCAN - LABS (12/08/2017 11:30 AM CDT) us Leana Shi MD Final Resu lt documented in this encounter Visit Diagnoses Not on filedocumented in this encounter Care Teams Job Setter Honing Relationship Specialty Start Date End Date Leana Shi MD PCP - General 10/22/16 Damon Floyd MD [address] [place] [address] Consulting Physician Neurology 07/14/18 Mattie Khoury [address] [place] [address] [address] [place] [address] ACO Care Powerhouse Tender 01/30/19 01/31/19 Tom Tafoya Si, MD [address] [place] [address] Consulting Physician Neurology 06/07/24 documented as of this encounter
--- OUTSIDE RECORDS SUMMARY | 2024-11-12 14:49 | XMS_ITS | Encounter Summary ---
Author Organization [facility] Address [address] [place] [address] Phone Care Team Providers Care Marketing Research Coordinator Name Role Phone Leana Shi MD Primary Care Provider [phone] Damon Floyd MD Unavailable [phone] [facility] Un[facility] Encounter Details Date Type Department Care Team (Late st Contact Info) Description 05/26/2020 Orders Only [facility] [address] [place] [address] Scanning, Provider Social History Tobacco [...] on file Legal Sex Female 8:12 AM RELISH MAKER Gender Identity Not on file Sexual Orientation Not on file 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 Not on file Not on file Not on fi le documented as of this encounter Plan of Treatment Not on file documented as of this encounter Procedures Procedure Name Priority Date/Time Associated Diagnosis Comments SCAN - LABS 05/26/2020 documented in this encounter Results * SCAN - LABS (05/26/2020) us Provider Scanning Final Result documented in this encounter Visit Diagnoses Not on filedocumented in this encounter Care Teams Marketing Research Coordinator Relationship Specialty Start Date End Date Leana Shi MD PCP - General 10/22/16 Damon Floyd MD [address] [facility] [address] [place] [address] Consulting Physician Neurology 07/14/18 [facility] [address] [facility] [address] [place] [address] Consulting Physician Neurology 06/07/24 documented as of this encounter
--- OUTSIDE RECORDS SUMMARY | 2024-11-12 14:49 | XMS_ITS | Encounter Summary ---
Author Organization [facility] Healthcare Address [address] [place] [address] Care Team Providers Care Solar Installer Technician Name Role Phone Leana Shi MD Primary Care Provider +- [phone] Damon Floyd MD Unavailable [phone] Tom Tafoya Si, MD Unavailable Encounter Details Date Type Department Care Team (Late st Contact Info) Description 08/03/2021 Telephone [facility] [address] [place] [address] Brittni Fitch, RT Social History Tobacco Use Types Packs/Day Years Used Date Smoking Tobacco: Never Smokeless Tobacco: Never Alcohol Use Standard Drinks/Week Comments Yes 0 (1 standard drink = 0.6 oz pur e alcohol) PHQ-2 Answer Date Recorded PHQ-2 Total Score (If total score is 3 or more points, staff should administer the PHQ-9) 0 03/04/2021 Comments No Sex and Gender Information Value Date Recorded Sex Assigned at Not on file Legal Sex Female 8:12 AM VACCINATOR Gender Identity Not on file Sexual Orientation Not on file 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
--- OUTSIDE RECORDS SUMMARY | 2024-11-12 14:49 | XMS_ITS | Clinical Summary ---
Author Organization [facility] [address] Address [address] [place] [address] Phone Care Team Providers Care Printed Circuit Board Pcb Designer Name Role Phone Leana Beebe MD Primary Care Provider [phone] Damon Floyd MD Unavailable [phone] [facility] Unavailable Allergies Active Allergy Reactions Criticality Noted Date [...] of severe dry eye syndrome Medications calcium-vits S9-D-U3-minerals 166.75 mg- 166.75 unit capsule Take by [...] CDT Assessment & Plan (08/23/2024 12:37 PM PERMIT AGENT): Chronic, found on recent mobile telemetry monitoring and workup for dizziness. Heart rate regular upon auscultation without murmur today. She has been seen by cardiology for this issue and had a normal ECHO at [facility] with Dr. hopper. No further intervention at this time. Will continue to monitor. Assessment & Plan (07/31/2024 9:09 PM PERMIT AGENT): Chronic, found on recent mobile telemetry monitoring and workup for dizziness. Heart rate regular upon auscultation without murmur today. She has been referred to Cardiology but has yet to set up an appointment-encouraged her to do this latosha as she can not complete a stress test at this time. Memory loss or impairment 04/09/2024 Assessment & Plan (07/31/2024 9:04 PM PERMIT AGENT): Chronic, worsening in the last 3 months. [...] yet. Assessment & Plan (07/31/2024 9:08 PM PERMIT AGENT): Chronic, controlled. Carotid Dopplers from 03/2024 unremarkable. [...] 11/25/2017 Assessment & Plan (07/31/2024 8:52 PM PERMIT AGENT): Chronic, controlled without medications at this time. [...] [place]aint Assessment & Plan (08/23/2024 12:33 PM PERMIT AGENT): Dizziness Intermittent dizziness has worsened over the past few weeks. Audiological testing and MRI results are normal. Thyroid levels are slightly high but not concerning. Refer back to neurology for further evaluation and order vestibular physical therapy. Assessment & Plan (07/31/2024 9:07 PM PERMIT AGENT): Acute, intermittent, mostly when sitting to standing [...] other acute changes. Advised to avoid any vqzo-fxe-rjyyhih medicines at this time. Push fluids. Follow [...] kidney Assessment & Plan (08/29/2019 12:25 PM PERMIT AGENT): Continue on the special kidney diet that [...] bathtub. Admits they did a CXR at [facility] that showed bruisied rib. - no [...] fit as noted above. Was seen in [facility] after fall-no records. No acute findings [...] (02/07/2019): Added automatically from request for surgery [id number] Assessment & Plan (08/29/2019 12:26 PM PERMIT AGENT): Weight remains stable, and she reports a good appetite. Nausea 02/07/2019 02/29/2020 Overview (02/07/2019): Added automatically from request for surgery [id number] Bilateral occipital neuralgia 02/02/2019 02/29/2020 Hypothyroidism, adult 12/22/20182019 Assessment & Plan (08/29/2019 12:23 PM PERMIT AGENT): TSH today is a little high at [...] 02/29/2020 Assessment & Plan (09/01/2019 10:16 AM PERMIT AGENT): Check follow up lipid panel for review with Dr. Tejal Beebe at annual. Influenza 09/06/2014 02/29/2020 Overview (10/29/2016): Influenza Cough 09/06/2014 02/29/2020 Overview (10/29/2016): Cough Trochanteric bursitis 12/08/20132019 Overview (10/29/2016): Trochanteric bursitis of both hips Hot flashes due to menopause 11/22/2012 02/29/2020 Overview (10/27/2016): Menopausal syndrome (hot flashes) Encounters Date Type Department Care Team Description 11/12/2024 Telephone [facility] [address] [place] [address] Leana Beebe MD Urinary Problem 11/09/2024 Telephone [facility] [address] [place] [address] Leana Beebe MD 10/30/2024 [facility] [address] [place] [address] Leana Beebe MD 10/02/2024 [facility] [address] [place] [address] Leana Beebe MD 10/01/2024 11:15 AM CDT Office Visit [facility] [address] [place] [address] Leana Beebe MD Trochanteric bursitis, left hip (Primary Dx); Trochanteric bursitis, right hip; Tinnitus of both ears; Bilateral hearing loss, unspecified hearing loss type; Vestibular disequilibrium involving both inner ears 08/29/2024 Telephone [facility] [address] [place] [address] Leana Beebe MD 08/16/2024 1:00 PM PERMIT AGENT Office Visit [facility] [address] [place] [address] Savannah Herrera NP Dizziness (Primary Dx); Vestibular disequilibrium involving both inner ears; Paroxysmal ventricular tachycardia (HCC); Nodular thyroid disease; History of traumatic head injury 08/14/2024 1:00 PM PERMIT AGENT Procedure visit [facility] Otolaryngology [address] [place] [address] [address] [place] [address] [place] [address] Estella Young Au.D. Dizziness from Last 3 Months Immunizations Immunization Administration Dates Next Due Flucelvax [...] 04/20/2012 ZOSTER LIVE 09/01/2010 ZOSTER Recombinant 03/01/2023 Surgical History Surgery Date Site/Laterality Comments APPENDECTOMY 07/25/1958 - 07/24/1959 Appendectomy KNEE ARTHROSCOPY 07/25/2000 - 07/24/2001 Arthroscopy knee TUBAL LIGATION Bilateral tubal ligation ESOPHAGOSCOPY / EGD 02/12/2019 (-) Dr. Black functional dyspepsia BLADDER SURGERY 07/25/1994 - 07/24/1995 Reece Nascimento CERVICAL SPINE SURGERY 07/25/1987 - 07/24/1988 Laminectomy for ruptured disc neck, details lacking. TONSILLECTOMY AND ADENOIDECTOMY Details lacking. COLONOSCOPY 09/22/2009 - 10/22/2009 (-) Dr. 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 Brain injury (HCC) 05/2018 Hyperthyroidism Kidney stone 2005 & 01/2019 Degenerative joint disease (DJD) of lumbar spine Lumbar Laminectomy DJD (degenerative joint disease) of cervical spi ne Cervical Laminectomy Trochanteric bursitis, right hip 03/08/2023 Family History Medical History Relation Name Comments Alzheimer's disease Mother Heart disease Mother valve Stroke Mother Stroke; Other Other 1 Headaches, migr aines; Hypertension Other 2 Hypertension; Breast cancer Neg Hx Ovarian cancer Neg Hx Thyroid cancer Neg Hx Relation Name Status Comments Mother Other 1 Other 2 Social History Tobacco Use Types Packs/Day Years [...] on file Legal Sex Female 8:12 AM PERMIT AGENT Gender Identity Not on file Sexual Orientation Not on file 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 Not on file Not on file Not on fi le Obstetrics History Para Term AB IAB SAB Ectopic Multiple Livin g Live Births 2 2 2 Date Outcome GA Total Labor Labor/2nd/3rd Weight Sex Type Anes PTL Crystal A1 A5 Name Clin Term Term Last Filed Vital Signs Vital Sign Reading [...] 10/01/2024 11:59 AM CDT Plan of Treatment Health Maintenance Due Date Last Done Comments Hepatitis B Screening 1963 DTaP/Tdap/Td Vaccine (2 - Td or Tdap) 04/20/2022 04/20/2012 Zoster Vaccine (3 of 3) 04/26/2023 03/01/2023, 09/01 Osteoporosis Screening-Bone Density Scan 08/04/2023 08/04/2021, 03/14/2020 Covid-19 Vaccine (2023-2 5 season) 2024 05/31/2022, 05/30/2022, 10/22/2021, Additional history exists Depression Screening 09/21/2024 09/22/2023, 09/22/2023, 04/09/2022, Additional history exists Fall Risk Assessment 09/21/2024 09/22/2023, 04/09/2022, 03/04/2021, Additional history exists Well Visit 65+ 09/21/2024 09/22/2023, 03/25, 03/04/2021, Additional history exists Influenza Vaccine (Season Ended) 2025 09/22/2023, 07/28/2022, 05/22/2021, Additional history exists Hepatitis C Screening Completed 08/02/2016 Colon Cancer Screening-CT Colonography Discontinued 03/28/2020 Colon Cancer Screening-Colonoscopy Discontinued 03/28/2020 Colon Cancer Screening-DNA Stool Discontinued 03/28/20 20 Colon Cancer Screening-FIT Discontinued 03/28/2020 Colon Cancer Screening-FOBT Discontinued 03/28/2020 Colon Cancer Screening-Sigmoidoscopy Discontinued 03/28/2020 Colorectal Cancer Screening Discontinued Pneumococcal vaccine 65+ Completed 024, 08/02/2016, 11/20/2014, Additional history exists Breast Cancer Screening-Mammogram Discontinued 11/01/2023, 10/26/2022, 08/04/2021, Additional history exists Procedures Procedure Name Priority Date/Time Associated Diagnosis Comments SCREENING MAMMOGRAM BILATERAL W SAV Schedule Routine, Read Routine (OP Routine) 11/01/2023 10:42 AM CDT Breast cancer screening by mammogram DEXA AXIAL SKELETON BONE DENSITY 1 OR MORE SITES Schedule Routine, Read Routine (OP Routine) 08/04/2021 10:13 AM PERMIT AGENT Menopause COLONOSCOPY 03/28/2020 8:49 AM CDT HEPATITIS C ANTIBODY Routine 08/02/2016 10:03 AM PERMIT AGENT from Last 3 Months or Most Recently [...] for her next mammogram. Electronically signed by: Catalina Park M.D. Narrative 11/01/2023 1:40 PM CDT EXAMINATION: SCREENING MAMMOGRAM [...] suspicious interval change. us Leana Beebe MD IMG MAMMO PROCEDURES Final Result * Dexa Axial Skeleton Bone Density 1 or 2 Site (08/04/2021 10:13 AM PERMIT AGENT) Anatomical Region Laterality Modality Body N/A Other 08/04/2021 11:3 1 AM PERMIT AGENT Narrative 08/04/2021 11:33 AM PERMIT AGENT EXAM DESCRIPTION: DEXA AXIAL SKELETON BONE DENSITY 1 OR MORE SITES REASON FOR STUDY: 76 y/o year old F with given history of screening. 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 MF: [email or web address] Report ID: [id number] Reading Location: [id number] Procedure Note Damon Larose MD - 08/04/2021 EXAM DESCRIPTION: DEXA AXIAL SKELETON BONE DENSITY 1 OR MORE SITES REASON FOR STUDY: 76 y/o year old F with given history ofscreening. 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 MF: JOSEFINA Report ID: [id number] Reading Location: [id number] Leana Beebe MD IM DXA PROCEDURES Final R esult * COLONOSCOPY (03/28/2020 8:49 AM CDT) Anatomical Region Laterality Modality Other Narrative Procedure Note Paula Black MD - 03/28/2020 8:49 AM CDT [facility] Patient Name: Sofia Magana Procedure Date: 03/28/2020 8:49 AM Date of : 1945 Admit Type: Outpatient Age: 75 Gender: Female Attending MD: Paula Black M.D. Room: [facility] ENDOSCOPY ROOM 1 Note Status: Finalized Patient Profile: This is a 75 year old female. No family history of colon cancer. Screening. Procedure: Colonoscopy Indications: Screening for colorectal malignant neoplasm, Last colonoscopy: September 2009 Referring MD: Laena Beebe M.D. Providers: Paula Black M.D. Impression: [...] passed under direct vision. The PediatricColonoscope [id number]-H190L [id number] was introduced through the anusand advanced to [...] 8:49 AM Procedure Code(s): --- Professional --- 82734, Colonoscopy, flexible; with biopsy, single or multiple Diagnosis Code(s): --- Professional --- Z12.11, Encounter for screening for malignant neoplasm of colon K64.8, Other hemorrhoids D12.3, Benign neoplasm of transverse colon (hepatic flexure orsplenic flexure) CPT copyright 2017 [employer]. All rights reserved. The codes documented in this report are preliminary and upon certified medical records coder reviewmay be revised to meet current compliance requirements. Recognized by the [employer] for promoting quality in endoscopy Paula Black MD ENDOSCOPY PROCEDURES Final Result * Hepatitis C antibody (08/02/2016 10:03 AM PERMIT AGENT) SIGNAL TO CUT-OFF 0.03 <1.00 [facility] HISTORICAL RESULTS Comment: REPORT COMMENT: FASTING:UNKNOWN Test performed at [facility] [place] [address] [place] [address] Director: LEONARD CUENCA DO,MPH Hep C Ab NON-REACT LEYLA NON-REACT LEYLA [facility] HISTORICAL RESULTS 08/02/2016 10:0 3 AM PERMIT AGENT Leana Beebe MD LAB MICROBIOLOGY - GENERAL ORDERABLES Final Result [facility] HISTORICAL RESULTS from Last 3 Months or Most Recently Relevant to Health Maintenance Insurance MEDICARE COMMERCIAL GENERIC COMMERCIAL GENERIC MEDICARE AETNA SENIOR SUPPLEMENT [facility] MEDICARE ADVANTAGE MEDICARE [facility] Address: [address] [address] [place] [address] [facility] MEDICARE ADVANTAGE AETNA SENIOR SUPPLEMENT Advance Directives For more information, please contact: [phone] Documents on File Type Date Recorded Patient Channel Sales Director Expl anation ADVANCE DIRECTIVE 12/21/2018 3:19 PM [...] 9:52 AM 02/12/2019 9:52 AM Care Teams Printed Circuit Board Pcb Designer Relationship Specialty Start Date End Date Leana Beebe MD PCP - General 10/22/16 Damon Floyd MD [address] [facility] [address] [place] [address] Consulting Physician Neurology 07/14/18 Tom Tafoya Si, MD [address] [facility] [address] [place] [address] Consulting Physician Neurology 06/07/24
--- OUTSIDE RECORDS SUMMARY | 2024-11-12 14:49 | XMS_ITS | Encounter Summary ---
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 Gender Identity Not on file Sexual Orientation Not on file 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 Not on file Not on file Not on fi le documented as of this encounter Plan of Treatment Not on file documented as of this encounter Visit Diagnoses Not on filedocumented in this encounter Care Teams Caltrans Equipment Operator Relationship Specialty Start Date End Date Leana Shi MD PCP - General 10/22/16 Damon Floyd MD [address] [facility] [address] [place] [address] Consulting Physician Neurology 07/14/18 LottieTom bautista Si, MD [address] [facility] [address] [place] [address] Consulting Physician Neurology 06/07/24 documented as of this encounter
== END 2024-11-12 13:13 | disposition home or self-care (01) ==
LOC: CHSLAB 13:14
PROVIDERS: PCP Internal Medicine Geriatric Medicine; Visit Provider Internal Medicine Geriatric Medicine
DX: N30.00 Acute cystitis without hematuria (principal)
CPT/HCPCS: 81001; 87086; 87088

== ENCOUNTER 2024-11-15 12:01 | Emergency (ER) | payer MEDICARE, SELFPAY ==
[2024-11-15] VITALS (28 sets, daily range): BP systolic 143–172; BP diastolic 67–92; PULSE 76–95; RESP 13–19; TEMP 36.2–36.7; O2SAT 93–98
[2024-11-15 12:21] LABS: Glucose Point of Care 123 mg/dl (65-105)
[2024-11-15 12:47] LABS: Basophils Absolute Auto 0.03 K/mm3 (0.00-0.10); Basophils Percent Auto 0.6 % (0.0-1.0); Eosinophils Absolute Auto 0.04 K/mm3 (0.02-0.50); Eosinophils Percent Auto 0.8 % (1.0-6.0); Hematocrit 40.4 % (35.0-42.0); Hemoglobin 13.4 g/dL (11.7-13.8); Immature Granulocyte Absolute 0.02 K/mm3 (0.00-0.00); Immature Granulocyte Percent A 0.4 % (0.0-0.0); Lymphocytes Absolute Auto 1.07 K/mm3 (1.10-4.50); Lymphocytes Percent Auto 20.2 % (18.0-42.0); Mean Corpuscular HGB Conc 33.2 g/dL (32-36); Mean Corpuscular Hemoglobin 32.9 pg (27.0-31.0); Mean Corpuscular Volume 99.3 fL (78.0-102.0); Mean Platelet Volume 9.3 fl (9.2-11.8); Monocytes Absolute Auto 0.39 K/mm3 (0.10-0.90); Monocytes Percent Auto 7.3 % (2.0-11.0); Neutrophils Absolute Auto 3.76 K/mm3 (1.70-7.20); Neutrophils Percent Auto 70.7 % (50.0-70.0); Platelet Count Result 171 K/mm3 (150-420); Red Blood Count 4.07 M/mm3 (4.20-5.40); Red Cell Distribution Width 12.4 % (11.6-14.4); White Blood Count 5.3 K/mm3 (4.8-10.8)
[2024-11-15] MEDS: SODIUM CHLORIDE 0.9% IV 1,000 ML 999 ML IV CONT (12:49)
[2024-11-15 13:08] LABS: Lactic Acid Reflex 0.8 mmol/L (0.4-2.0)
[2024-11-15 13:15] LABS: Alanine Aminotransferase 24 U/L (14-59); Albumin Level 3.4 g/dL (3.4-5.0); Alkaline Phosphatase 67 U/L (46-116); Anion Gap 6 mmol/L (4-12); Aspartate Amino Transferase 16 U/L (15-37); Bilirubin,Total 0.7 mg/dL (0.00-1.00); Blood Urea Nitrogen 19 mg/dL (7-18); Calcium 8.8 mg/dL (8.5-10.1); Carbon Dioxide 31 mmol/L (21-32); Chloride 104 mmol/L (98-108); Estimated CRCL calculation 49 ml/min; Estimated Glomerular Filt Rate > 60; Glucose 121 mg/dL (70-99); Osmolality Calculated 295 mOsm/kg (285-295); Potassium 3.7 mmol/L (3.5-5.1); Sodium 141 mmol/L (136-145); Total Protein 6.6 g/dL (6.4-8.2); Troponin I 8.9 ng/L (0.00-60.4)
--- OUTSIDE RECORDS SUMMARY | 2024-11-15 13:22 | XMS_ITS | Encounter Summary ---
Author Organization [facility] Healthcare Address [address] [place] [address] Care Team Providers Care Nurse Epidemiologist Name Role Phone Leana Shi MD Primary Care Provider [phone] Damon Floyd MD Unavailable [phone] Tom Tafoya Si, MD Unavailable Reason for Referral * Diagnostic Imaging (Routine) - Pending Review Specialty Diagnoses / Procedures Referred By Contac t Referred To Contact Diagnoses Breast cancer screening by mammogram Procedures Screening Mammogram Bilateral W Sav Screening Mammogram Bilateral W Sav Leana Shi MD [address] [place] [address] Phone: tel: fax: External Order Referral ID Status Reason Start Date Expiration Date V isits Requested Visits Authorized [id number] Pending Review 11/12/2024 12/12/2025 1 1 Encounter Details Date Type Department Care Team (Late st Contact Info) Description 11/09/2024 Telephone [facility] [address] [place] [address] Leana Shi MD [address] [address] Social History Tobacco Use Types Packs/Day Years [...] on file Legal Sex Female 8:12 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 Left message with [facility] to get fax number. * Telephone Encounter - Umm Quiroz RN - 11/09/2024 4:11 PM CDT Yes ok for the mammogram * Telephone Encounter - Aurora Denise - 11/09/2024 3:52 PM CDT Patient called stating that she was notified that she is due for her mammogram. Patient would like to go to the hospital close to her home--[facility]. Okay to put order in? [phone] documented in this encounter Plan of Treatment Scheduled Orders Name Type Priority Associated Diagnoses Orde r Schedule Screening Mammogram Bilateral W Sav Imaging Schedule Routine, Read Routine (OP Routine) Breast cancer screening by mammogram Expected: 11/12/2024, Expires: 01/12/2026 documented as of this encounter Visit Diagnoses Diagnosis Breast cancer screening by mammogram- Primary documented in this encounter Care Teams Nurse Epidemiologist Relationship Specialty Start Date End Date Leana Shi MD PCP - General 10/22/16 Damon Floyd MD [address] [facility] [address] [place] [address] Consulting Physician Neurology 07/14/18 [place] [address] [place] [address] [address] [place] [address] Consulting Physician Neurology 06/07/24 documented as of this encounter
--- OUTSIDE RECORDS SUMMARY | 2024-11-15 13:22 | XMS_ITS | Referral Summary ---
Author Organization [facility] [address] Address [address] [place] [address] Phone Care Team Providers Care Behavior Analyst Name Role Phone Leana Beebe MD Primary Care Provider + [phone] Damon Floyd MD Unavailable [phone] Tom Tafoya Si, MD Unavailable Encounters Date Type Department Care Team Description 11/15/2024 Telephone [facility] [address] [place] [address] Leana Beebe MD Nausea; Vomiting 11/12/2024 [facility]phone [facility] [address] [place] [address] Leana Beebe MD Urinary Problem 11/09/2024 Telephone [facility] [address] [place] [address] Leana Beebe MD 10/30/2024 [facility]phone [facility] [address] [place] [address] Leana Beebe MD 10/02/2024 Telephone [facility] [address] [place] [address] Leana Beebe MD 10/01/2024 11:15 AM CDT [facility] [address] [place] [address] Leana Beebe MD Trochanteric bursitis, left hip (Primary Dx); Trochanteric bursitis, right hip; Tinnitus of both ears; Bilateral hearing loss, unspecified hearing loss type; Vestibular disequilibrium involving both inner ears 08/29/2024 [facility]phone [facility] [address] [place] [address] Leana Beebe MD from Last 3 Months Allergies Active Allergy [...] of severe dry eye syndrome Medications calcium-vits A4-K-Y9-minerals 166.75 mg- 166.75 unit capsule Take by [...] CDT Assessment & Plan (08/23/2024 12:37 PM POLICE CAPTAIN): Chronic, found on recent mobile telemetry monitoring and workup for dizziness. Heart rate regular upon auscultation without murmur today. She has been seen by cardiology for this issue and had a normal ECHO at [facility] with Dr. hopper. No further intervention at this time. Will continue to monitor. Assessment & Plan (07/31/2024 9:09 PM POLICE CAPTAIN): Chronic, found on recent mobile telemetry monitoring and workup for dizziness. Heart rate regular upon auscultation without murmur today. She has been referred to Cardiology but has yet to set up an appointment-encouraged her to do this latosha as she can not complete a stress test at this time. Memory loss or impairment 04/09/2024 Assessment & Plan (07/31/2024 9:04 PM POLICE CAPTAIN): Chronic, worsening in the last 3 months. [...] yet. Assessment & Plan (07/31/2024 9:08 PM POLICE CAPTAIN): Chronic, controlled. Carotid Dopplers from 03/2024 unremarkable. [...] (04/20/2024 3:54 PM CDT): Chronic, sustained in 2018. 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 Had no residuals after symptoms had fully resolved, however now complaining of short term memory issues as described above. Dizziness upon standing, questionable lisp, altered word recall on Mini-Cog. No other acute findings or neurological deficits on exam. We will check labs and MRI brain without contrast today. Nodular thyroid disease 11/25/2017 Assessment & Plan (07/31/2024 8:52 PM POLICE CAPTAIN): Chronic, controlled without medications at this time. [...] Toussaint Assessment & Plan (08/23/2024 12:33 PM POLICE CAPTAIN): Dizziness Intermittent dizziness has worsened over the past few weeks. Audiological testing and MRI results are normal. Thyroid levels are slightly high but not concerning. Refer back to neurology for further evaluation and order vestibular physical therapy. Assessment & Plan (07/31/2024 9:07 PM POLICE CAPTAIN): Acute, intermittent, mostly when sitting to standing [...] WRITTEN ON 04/09/2024 7:50 PM BY SAVANNAH HERRREA NP Acute, intermittent, mostly when sitting to [...] other acute changes. Advised to avoid any pzbo-dtj-xosukkg medicines at this time. Push fluids. Follow [...] kidney Assessment & Plan (08/29/2019 12:25 PM POLICE CAPTAIN): Continue on the special kidney diet that [...] bathtub. Admits they did a CXR at [facility] that showed bruisied rib. - no records. [...] fit as noted above. Was seen in [facility] after fall-no records. No acute findings on [...] (02/07/2019): Added automatically from request for surgery [id number] Assessment & Plan (08/29/2019 12:26 PM POLICE CAPTAIN): Weight remains stable, and she reports a good appetite. 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 Not on file Not on file [...] Procedure Name Priority Date/Time Associated Diagnosis Comments URINALYSIS AND REFLEX TO MICROSCOPIC AND CULTURE Routine 11/12/2024 Acute cystitis without hematuria SCREENING MAMMOGRAM BILATERAL W SAV Schedule Routine, Read Routine (OP Routine) 11/01/2023 10:42 AM CDT Breast cancer screening by mammogram DEXA AXIAL SKELETON BONE DENSITY 1 OR MORE SITES Schedule Routine, Read Routine (OP Routine) 08/04/2021 10:13 AM POLICE CAPTAIN Menopause COLONOSCOPY 03/28/2020 8:49 AM CDT HEPATITIS C ANTIBODY Routine 08/02/2016 10:03 AM POLICE CAPTAIN from Last 3 Months or Most Recently Relevant to Health Maintenance Results * Urinalysis reflex to microscopic and culture Urine, bladder (11/12/2024) Urine, bladder us Leana Beebe MD LAB MICROBIOLOGY - GENERAL ORDERABLES Final Result EXTERNAL LAB * Screening Mammogram Bilateral W Sav (11/01/2023 [...] 1 or 2 Site (08/04/2021 10:13 AM POLICE CAPTAIN) Anatomical Region Laterality Modality Body N/A Other 08/04/2021 11:3 1 AM POLICE CAPTAIN Narrative 08/04/2021 11:33 AM POLICE CAPTAIN EXAM DESCRIPTION: DEXA AXIAL SKELETON BONE DENSITY 1 OR MORE SITES REASON FOR STUDY: 76 y/o year old F with given history of screening. 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 MF: JOSEFINA Report ID: [id number] Reading Location: [place] [address] Procedure Note Damon Larose MD - 08/04/2021 EXAM DESCRIPTION: DEXA AXIAL SKELETON BONE DENSITY 1 OR MORE SITES REASON FOR STUDY: 76 y/o year old F with given history ofscreening. 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 MF: JOSEFINA Report ID: [id number] Reading Location: [id number] [place] Leana Beebe MD IMG DXA PROCEDURES Final R esult * COLONOSCOPY (03/28/2020 8:49 AM CDT) Anatomical Region Laterality Modality Other Narrative Procedure Note Paula Black MD - 03/28/2020 8:49 AM CDT [facility] Patient Name: Sofia Magana Procedure Date: 03/28/2020 8:49 AM Date of : 1945 Admit Type: Outpatient Age: 75 Gender: Female Attending MD: Paula Black M.D. [facility] 1 Note Status: Finalized Patient [...] passed under direct vision. The PediatricColonoscope [id number]-H190L [id number] was introduced through the anusand advanced to [...] 8:49 AM Procedure Code(s): --- Professional --- 12132, Colonoscopy, flexible; with biopsy, single or multiple Diagnosis Code(s): --- Professional --- Z12.11, Encounter for screening for malignant neoplasm of colon K64.8, Other hemorrhoids D12.3, Benign neoplasm of transverse colon (hepatic flexure orsplenic flexure) CPT copyright 2017 [employer]. All rights reserved. The codes documented in this report are preliminary and upon medical biller coder reviewmay be revised to meet current compliance requirements. Recognized by the [employer] for promoting quality in endoscopy Paula Black MD ENDOSCOPY PROCEDURES Final Result * Hepatitis C antibody (08/02/2016 10:03 AM POLICE CAPTAIN) SIGNAL TO CUT-OFF 0.03 <1.00 [facility]ISTORICAL RESULTS Comment: REPORT COMMENT: FASTING:UNKNOWN Test performed at [facility] [address] [place] [address] Director: LEONARD CUENCA DO,MPH Hep C Ab NON-REACT LEYLA NON-REACT LEYLA [facility]ISTORICAL RESULTS 08/02/2016 10:0 3 AM POLICE CAPTAIN Leana Beebe MD LAB MICROBIOLOGY - GENERAL ORDERABLES Final Result [facility]ORICAL RESULTS from Last 3 Months or Most Recently Relevant to Health Maintenance Insurance [place] [address] COMMERCIAL GENERIC Member Subscriber Plan / Payer (Ef fective 2016-Present) Name:Sofia Magana Member ID:[id number] Relation to Subscriber:Self Name:Sofia Magana Subscriber ID:[id number] Payer ID:[id number] Group ID:[id number] Type:COMMERCIAL Address: [address] [address] [place] [address] MEDICARE [employer] SENIOR [facility] MEDICARE ADVANTAGE MEDICARE [facility] MEDICARE ADVANTAGE [employer] SENIOR SUPPLEMENT Advance Directives For more information, please contact: [phone] Documents on File Type Date Recorded 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
--- OUTSIDE RECORDS SUMMARY | 2024-11-15 13:22 | XMS_ITS | Encounter Summary ---
Author Organization [facility] Address [address] [place] [address] Phone Care Team Providers Care Body Care Manager Name Role Phone Leana Shi MD Primary Care Provider [phone] Damon Floyd MD Unavailable [phone] [facility] Un[facility] Encounter Details Date Type Department Care Team (Late st Contact Info) Description 06/09/2020 Orders Only [facility] [address] [place] [address] Scanning, Provider Social History Tobacco [...] on file Legal Sex Female 8:12 AM ACID PURIFIER Gender Identity Not on file Sexual Orientation Not on file 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
--- OUTSIDE RECORDS SUMMARY | 2024-11-15 13:22 | XMS_ITS | Encounter Summary ---
Author Organization [facility] Healthcare Address [address] [place] [address] Care Team Providers Care Windows Server Engineer Name Role Phone Leana Shi MD Primary Care Provider [phone]- [phone] Damon Floyd MD Unavailable [phone] Tom Tafoya Si, MD Unavailable Encounter Details Date Type Department Care Team (Late st Contact Info) Description 08/03/2021 Telephone [facility] [address] [place] [address] Brittni Fitch, RT Social History Tobacco Use [...] on file Legal Sex Female 8:12 AM HEALTH OUTCOMES LIAISON Gender Identity Not on file Sexual Orientation Not on file 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 [place] [address] Consulting Physician Neurology 07/14/18 LottieTom bautista Si, MD [address] [place] [address] Consulting Physician Neurology 06/07/24 documented as of this encounter
--- OUTSIDE RECORDS SUMMARY | 2024-11-15 13:22 | XMS_ITS | CONTINUITY OF CARE DOCUMENT ---
Author Name julitamery julitamery Address Unknown Organization [facility] Address [address] [place] [address] Phone [phone] Care Team Providers Care Salvage Diver Name Role Phone Marciano Gardner MD Unavailable KELLEN BEEBE MD Unavailable PROBLEMS Condition Status Date Provider Notes Ventricular tachycardia, nonsustained active 5 Marciano Gardner MD Dizziness active Marciano Gardner MD Cardiology examination active Marciano Gardner MD ENCOUNTERS Date Type Provider Location Encounter Diag nosis 0 - 0 In-person encounter Office Visit Marciano Gardner MD [facility] 5 - 5 In-person encounter Office Visit Marciano Gardner MD [facility] Cardiology examinationDizzinessVentricular tachycardia, nonsustained VITAL SIGNS Date Observation Value Provider Body Mass Index (Ratio) 25.98 kg/m2 Quinn Gardner MD blood pressure, cuff size regular Kavon Dillard blood pressure, diastolic 90 mm[Hg] Kavon [...] Payer name Policy type / Coverage type [place] red republican ID [employer] Commercial insurance [place] MEDICARE PART B Medicare [id number] ADVANCE DIRECTIVES Name Date DISCUSSED - NO DECISION MADE TREATMENT PLAN Date Name Performer Cardiology Marciano Gardner MD Cardiology Marciano Gardner MD Date Name Carotid Duplex Bilat eral Stress Regadenoson Complete Echo HISTORY OF PROCEDURES Procedure Date Procedure Name Provider Procedure Notes S tatus EKG Marciano Gardner MD complete d
--- OUTSIDE RECORDS SUMMARY | 2024-11-15 13:22 | XMS_ITS | Encounter Summary ---
Author Organization [facility] Address [address] [place] [address] Phone Care Team Providers Care Second Mate Name Role Phone Leana Shi MD Primary Care Provider + [phone] Damon Floyd MD Unavailable [phone] [facility] Un[facility] Encounter Details Date Type Department Care Team (Late st Contact Info) Description 09/16/2022 Orders Only [facility] [address] [place] [address] Leana Shi MD [address] [place] [address] Social History Tobacco Use Types [...] on file Legal Sex Female 8:12 AM LAND APPRAISER Gender Identity Not on file Sexual Orientation Not on file 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
--- OUTSIDE RECORDS SUMMARY | 2024-11-15 13:22 | XMS_ITS | Encounter Summary ---
Author Organization [facility] Healthcare Address [address] [place] [address] Care Team Providers Care Diamond Wheel Molder Name Role Phone Leana Shi MD Primary Care Provider [phone] Damon Floyd MD Unavailable [phone] Tom Tafoya Si, MD Unavailable Reason for Visit * Reason Onset Date Comments Nausea 11/15/2024 Vomiting 11/15/2024 Encounter Details Date Type Department Care Team (Late st Contact Info) Description 11/15/2024 Telephone [facility] [address] [place] [address] Leana Shi MD [address] [place] [address] Nausea; Vomiting Social History Tobacco Use Types Packs/Day Years [...] on file Legal Sex Female 8:12 AM SHOE REPAIR COBBLER Gender Identity Not on file Sexual Orientation Not on file 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 Shi and verbal order received: Go to ER Called patient's daughter Zachary and notified her to have patient to go to ER and she voiced understanding. She said she will go to her mom's house and take her to [facility]. Zachary was transferred to intelligence support officer to r/s appt. * Telephone Encounter - Celia Hough RN - 11/15/2024 9:42 AM CDT TOKMS: Called patient's daughter Zachary-on HIPAA. She said patient started feeling nauseated around midnight. She started having vomiting for about the last 3-4 hours and has been laying on the bathroom floor since then. Patient has not been able to keep anything down. She said patient vomits 2-3 times in a row and then is good for 30 minutes or so and it starts again. She also has a low grade fever of 99.9. She denied any abdominal pain. She said patient has not complained of any other symptoms. Patient does not want to come to her appt today and wants to reschedule. Daughter asked if anything can be given to patient for nausea. She did not feel patient needed to go to ER at this time. Advised her to take patient if vomiting continues and patient is unable to get fluids down and she voiced understanding. Please advise * Telephone Encounter - Aurora Denise - 11/15/2024 9:30 AM CDT Patient's daughter called stating that patient has been having N/V since last night around midnight. States nonstop. States that she has been on the bathroom floor at the toilet for the past 4 hours. Patient has appointment today at 3 for her Medicare AWV. Patient's daughter states that patient does not want to leave the house at all. [phone] documented in this encounter Plan of Treatment Not on file documented as of this encounter Visit Diagnoses Not on filedocumented in this encounter Care Teams Diamond Wheel Molder Relationship Specialty Start Date End Date Leana Shi MD PCP - General 10/22/16 Damon Floyd MD [address] [place] [address] Consulting Physician Neurology 07/14/18 Tom Tafoya Si, MD [address] [place] [address] Consulting Physician Neurology 06/07/24 documented as of this encounter
--- OUTSIDE RECORDS SUMMARY | 2024-11-15 13:22 | XMS_ITS | Clinical Summary ---
Author Organization CC [facility] [address] Address [address] [place] [address] Phone Care Team Providers Care Bomb Squad Commander Name Role Phone Leana Beebe MD Primary Care Provider [phone] Damon Floyd MD Unavailable [phone] [facility] Un[facility] Allergies Active Allergy [...] of severe dry eye syndrome Medications calcium-vits O3-B-O4-minerals 166.75 mg- 166.75 unit capsule Take by [...] CDT Assessment & Plan (08/23/2024 12:37 PM HEAD OF MARKETING ADOMETRY): Chronic, found on recent mobile telemetry monitoring and workup for dizziness. Heart rate regular upon auscultation without murmur today. She has been seen by cardiology for this issue and had a normal ECHO at [facility] with Dr. hopper. No further intervention at this time. Will continue to monitor. Assessment & Plan (07/31/2024 9:09 PM HEAD OF MARKETING ADOMETRY): Chronic, found on recent mobile telemetry monitoring and workup for dizziness. Heart rate regular upon auscultation without murmur today. She has been referred to Cardiology but has yet to set up an appointment-encouraged her to do this latosha as she can not complete a stress test at this time. Memory loss or impairment 04/09/2024 Assessment & Plan (07/31/2024 9:04 PM HEAD OF MARKETING ADOMETRY): Chronic, worsening in the last 3 months. [...] yet. Assessment & Plan (07/31/2024 9:08 PM HEAD OF MARKETING ADOMETRY): Chronic, controlled. Carotid Dopplers from 03/2024 unremarkable. [...] 11/25/2017 Assessment & Plan (07/31/2024 8:52 PM HEAD OF MARKETING ADOMETRY): Chronic, controlled without medications at this time. [...] T[place]aint Assessment & Plan (08/23/2024 12:33 PM HEAD OF MARKETING ADOMETRY): Dizziness Intermittent dizziness has worsened over the past few weeks. Audiological testing and MRI results are normal. Thyroid levels are slightly high but not concerning. Refer back to neurology for further evaluation and order vestibular physical therapy. Assessment & Plan (07/31/2024 9:07 PM HEAD OF MARKETING ADOMETRY): Acute, intermittent, mostly when sitting to standing [...] patient refused. Keep follow up with Dr. beeeb next month. Call with any changes/concerns. Assessment [...] other acute changes. Advised to avoid any [id number] medicines at this time. Push fluids. Follow [...] kidney Assessment & Plan (08/29/2019 12:25 PM HEAD OF MARKETING ADOMETRY): Continue on the special kidney diet that [...] bathtub. Admits they did a CXR at [facility] that showed bruisied rib. - no [...] fit as noted above. Was seen in [facility] after fall-no records. No acute findings [...] (02/07/2019): Added automatically from request for surgery [id number] Assessment & Plan (08/29/2019 12:26 PM HEAD OF MARKETING ADOMETRY): Weight remains stable, and she reports a good appetite. Nausea 02/07/2019 02/29/2020 Overview (02/07/2019): Added automatically from request for surgery [id number] Bilateral occipital neuralgia 02/02/2019 02/29/2020 Hypothyroidism, adult 12/22/20182019 Assessment & Plan (08/29/2019 12:23 PM HEAD OF MARKETING ADOMETRY): TSH today is a little high at [...] 02/29/2020 Assessment & Plan (09/01/2019 10:16 AM HEAD OF MARKETING ADOMETRY): Check follow up lipid panel for review with Dr. Tejal Beebe at annual. Influenza 09/06/2014 02/29/2020 Overview (10/29/2016): Influenza Cough 09/06/2014 02/29/2020 Overview (10/29/2016): Cough Trochanteric bursitis 12/08/20132019 Overview (10/29/2016): Trochanteric bursitis of both hips Hot flashes due to menopause 11/22/2012 02/29/2020 Overview (10/27/2016): Menopausal syndrome (hot flashes) Encounters Date Type Department Care Team Description 11/15/2024 Telephone [facility] [address] [place] [address] Leana Beebe MD Nausea; Vomiting 11/12/[address] [facility] [address] [place] [address] Leana Beebe MD Urinary Problem 11/09/[address] [facility] [address] [place] [address] Leana Beebe MD 10/30/[address] [facility] [address] [place] [address] Leana Beebe MD 10/02/[address] [facility] [address] [place] [address] Leana Beebe MD 10/01/2024 11:15 AM CDT [facility] [address] [place] [address] Leana Beebe MD Trochanteric bursitis, left hip (Primary Dx); Trochanteric bursitis, right hip; Tinnitus of both ears; Bilateral hearing loss, unspecified hearing loss type; Vestibular disequilibrium involving both inner ears 08/29/[address] 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 Not on file Not on file [...] Read Routine (OP Routine) 08/04/2021 10:13 AM HEAD OF MARKETING ADOMETRY Menopause COLONOSCOPY 03/28/2020 8:49 AM CDT HEPATITIS C ANTIBODY Routine 08/02/2016 10:03 AM HEAD OF MARKETING ADOMETRY from Last 3 Months or Most Recently [...] 1 or 2 Site (08/04/2021 10:13 AM HEAD OF MARKETING ADOMETRY) Anatomical Region Laterality Modality Body N/A Other 08/04/2021 11:3 1 AM HEAD OF MARKETING ADOMETRY Narrative 08/04/2021 11:33 AM HEAD OF MARKETING ADOMETRY EXAM DESCRIPTION: DEXA AXIAL SKELETON BONE DENSITY 1 OR MORE SITES REASON FOR STUDY: 76 y/o year old F with given history of screening. Postmenopausal Power Distribution Engineer/Model: Clinc! SL (S/N [id number]) CLINICAL INFORMATION: Current height: 66 inches Maximum [...] Damon Larose M.D. MF: [email or web address] Report ID: [id number] Reading Location: [id number] Procedure Note Damon Larose MD - 08/04/2021 EXAM DESCRIPTION: DEXA AXIAL SKELETON BONE DENSITY 1 OR MORE SITES REASON FOR STUDY: 76 y/o year old F with given history ofscreening. Postmenopausal Power Distribution Engineer/Model: MeSixty Discovery SL (S/N [id number]) CLINICAL INFORMATION: Current height: 66 inches Maximum [...] Damon Larose M.D. MF: [email or web address] Report ID: [id number] Reading Location: [id number] us Leana Beebe MD IMG DXA PROCEDURES Final R esult * COLONOSCOPY (03/28/2020 8:49 AM CDT) Anatomical Region Laterality Modality Other Narrative Procedure Note Paula Black MD - 03/28/2020 8:49 AM CDT [facility] Patient Name: Sofia Magana Procedure Date: 03/28/2020 8:49 AM Date of : 1945 Admit Type: Outpatient Age: 75 Gender: Female Attending MD: Paula Black M.D. Room: [facility] 1 Note Status: Finalized Patient [...] passed under direct vision. The PediatricColonoscope [id number] was introduced through the anusand advanced to [...] 8:49 AM Procedure Code(s): --- Professional --- 87940, Colonoscopy, flexible; with biopsy, single or multiple Diagnosis Code(s): --- Professional --- Z12.11, Encounter for screening for malignant neoplasm of colon K64.8, Other hemorrhoids D12.3, Benign neoplasm of transverse colon (hepatic flexure orsplenic flexure) CPT copyright 2017 [employer]. All rights reserved. The codes documented in this report are preliminary and upon dry cleaning machine operator helper reviewmay be revised to meet current compliance requirements. Recognized by the [employer] for promoting quality in endoscopy Paula Black MD ENDOSCOPY PROCEDURES Final Result * Hepatitis C antibody (08/02/2016 10:03 AM HEAD OF MARKETING ADOMETRY) SIGNAL TO CUT-OFF 0.03 <1.00 [facility] HISTORICAL RESULTS Comment: REPORT COMMENT: FASTING:UNKNOWN Test performed at [facility] [address] [place] [address] Director: LEONARD CUENCA DO,MPH Hep C Ab NON-REACT LEYLA NON-REACT LEYLA [facility] HISTORICAL RESULTS 08/02/2016 10:0 3 AM HEAD OF MARKETING ADOMETRY Leana Beebe MD LAB MICROBIOLOGY - GENERAL ORDERABLES Final Result [facility] HISTORICAL RESULTS from Last 3 Months or Most Recently Relevant to Health Maintenance Insurance MEDICARE COMMERCIAL GENERIC [place] [id number] [place] [address] MEDICARE [employer] SENIOR SUPPLEMENT [address] MEDICARE ADVANTAGE MEDICARE [facility] MEDICARE ADVANTAGE [employer] SENIOR SUPPLEMENT Advance Directives For more information, please contact: [phone] Documents on File Type Date Recorded Patient Conveyor Belt Repairer Expl anation ADVANCE DIRECTIVE 12/21/2018 3:19 PM [...] 9:52 AM 02/12/2019 9:52 AM Care Teams Bomb Squad Commander Relationship Specialty Start Date End Date Leana Beebe MD PCP - General 10/22/16 Damon Floyd MD [address] [facility] [place] [address] Consulting Physician Neurology 07/14/18 LottieTom bautista Si, MD [address] [place] [address] Consulting Physician Neurology 06/07/24
--- OUTSIDE RECORDS SUMMARY | 2024-11-15 13:22 | XMS_ITS | Encounter Summary ---
Author Organization [facility] Healthcare Address [address] [place] [address] Care Team Providers Care Front Desk Team Member Name Role Phone Leana Shi MD Primary Care Provider [phone] Damon Floyd MD Unavailable [phone] Tom Tafoya Si, MD Unavailable Reason for Visit * Reason Onset Date Comments Urinary Problem 11/12/2024 Encounter Details Date Type Department Care Team (Late st Contact Info) Description 11/12/2024 Telephone [facility] [address] [place] [address] Leana Shi MD [address] [place] [address] Urinary Problem Social History Tobacco Use Types [...] on file Legal Sex Female 8:12 AM COMPRESSOR SERVICE TECHNICIAN Gender Identity Not on file Sexual Orientation Not on file 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 These superficial bacteria are not indicative of a urinary tract infection. Informed pt that the urine culture is negative. Pt states she is still taking the Cipro, which she started Tuesday and her symptoms are already greatly improved. Pt states she wants to finish the antibiotic. Pt is scheduled to see KMS in clinic tomorrow. Therefore, did print out the UA & cultureresults & gave to S room nurse for KMS to review with pt tomorrow. Pt had no further questions/concerns at this time. * Telephone Encounter - Umm Quiroz RN - 11/13/2024 10:05 AM CDT Called and informed pt that her urine was infected She did get the antibiotic Her urination is getting better She know she will talk to Dr Shi about her frequent UTI at her visit 11/15/2024 * Telephone Encounter - Umm Quiroz RN - 11/13/2024 9:44 AM CDT Called and check on the pt left a message * Telephone Encounter - Umm Quiroz RN [...] 08/29/2024 10/02/2024 11/12/2024 Pt will go to [facility] and give a ua There was a antibiotic at [facility] that can be refilled They will get is ready for the pt to picker packer Called and got a fax number to fax the urine order [phone] Pt is aware of the procedure and will see Dr Shi 11/15/2024 Faxed a order to [facility] * Telephone Encounter - Zulema Sr - 11/12/2024 9:33 AM CDT Patient is calling to state that she thinks she a reoccurring UTI. Pt is complaining about painful urination, and going frequently since Tuesday. Pt is wondering if she could get something called in Please advise Pt cbn: [phone] [facility] [place] documented in this encounter Plan of Treatment Not on file documented as of this encounter Procedures Procedure Name Priority Date/Time Associated Diagnosis Comments URINALYSIS AND REFLEX TO MICROSCOPIC AND CULTURE Routine 11/12/2024 Acute cystitis without hematuria documented in this encounter Results * Urinalysis reflex to microscopic and culture Urine, bladder (11/12/2024) Urine, bladder us Leana Shi MD LAB MICROBIOLOGY - GENERAL ORDERABLES Final Result EXTERNAL LAB documented in this encounter Visit Diagnoses Diagnosis Acute cystitis without hematuria- Primary documented in this encounter Care Teams Front Desk Team Member Relationship Specialty Start Date End Date Leana Shi MD PCP - General 10/22/16 Damon Floyd MD [address] [place] [address] Consulting Physician Neurology 07/14/18 [facility] [address] [place] [address] Consulting Physician Neurology 06/07/24 documented as of this encounter
--- OUTSIDE RECORDS SUMMARY | 2024-11-15 13:22 | XMS_ITS | Encounter Summary ---
Author Organization [facility] Address [address] [place] [address] Phone Care Team Providers Care Tail Dogger Name Role Phone Leana Shi MD Primary Care Provider [phone] Damon Floyd MD Unavailable [phone] [facility] Un[facility] Encounter Details Date Type Department Care Team (Late st Contact Info) Description 05/20/2020 Orders Only [facility] [address] [place] [address] Scanning, Provider Social History Tobacco [...] on file Legal Sex Female 8:12 AM DIVING BOARD ASSEMBLER Gender Identity Not on file Sexual Orientation Not on file 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
--- OUTSIDE RECORDS SUMMARY | 2024-11-15 13:22 | XMS_ITS | Encounter Summary ---
Author Organization [facility] Address [address] [employer] [place] [address] Phone Care Team Providers Care Manager School Name Role Phone Leana Shi MD Primary Care Provider [phone] Damon Floyd MD Unavailable [phone] Mattie Khoury Unavailable [phone] [facility] Unavailable Encounter Details Date Type Department Care Team (Late st Contact Info) Description 12/08/2017 Orders Only [facility] [address] [place] [address] Leana Shi MD [address] [place] [address] Social History Tobacco Use Types Packs/Day Years Used Date Smoking Tobacco: Never Smokeless Tobacco: Never Alcohol Use Standard Drinks/Week Comments No 0 (1 standard drink = 0.6 oz pur e alcohol) Comments No Sex and Gender Information Value Date Recorded Sex Assigned at Not on file Legal Sex Female 8:12 AM BEAN VINER Gender Identity Not on file Sexual Orientation Not on file 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
--- OUTSIDE RECORDS SUMMARY | 2024-11-15 13:22 | XMS_ITS | Encounter Summary ---
Author Organization [facility] Healthcare Address [address] [place] [address] Care Team Providers Care Trademark Paralegal Name Role Phone Leana Shi MD Primary Care Provider [phone] Damon Floyd MD Unavailable [phone] Tom Tafoya Si, MD Unavailable Encounter Details Date Type Department Care Team (Late st Contact Info) Description 03/13/2020 Telephone [facility] [address] [place] [address] Natali Baxter, RT Social History Tobacco Use [...] on file Legal Sex Female 8:12 AM CHIEF SECURITY OFFICER Gender Identity Not on file Sexual Orientation Not on file 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
--- OUTSIDE RECORDS SUMMARY | 2024-11-15 13:22 | XMS_ITS | Clinical Summary ---
Author Organization [facility] Address [address] [place] [address] Care Team Providers Care Boilermaker Mechanic Name Role Phone Unavailable Primary Care Provider Unavailabl e Social History Tobacco Use Types Packs/Day Years Used Date Smoking Tobacco: Never Assessed Comments Unknown Sex and Gender Information Value Date Recorded Sex Assigned at Not on file Legal Sex Female 5:56 PM CONSULTING IT ARCHITECT Gender Identity Not on file Sexual Orientation [...]
--- OUTSIDE RECORDS SUMMARY | 2024-11-15 13:22 | XMS_ITS | Encounter Summary ---
Author Organization [facility] Address [address] [place] [address] Phone Care Team Providers Care Oil Fire Specialist Name Role Phone Leana Shi MD Primary Care Provider [phone] Damon Floyd MD Unavailable [phone] [facility] Un[facility] Encounter Details Date Type Department Care Team (Late st Contact Info) Description 05/26/2020 Orders Only [facility] [address] [place] [address] Scanning, Provider Social History Tobacco [...] on file Legal Sex Female 8:12 AM FLOOR SERVICE 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
--- OUTSIDE RECORDS SUMMARY | 2024-11-15 13:22 | XMS_ITS | Clinical Summary ---
Author Organization [facility] Address [address] [place] [address] Phone Care Team Providers Care Reiki Practitioner Name Role Phone Leana Shi MD Primary Care Provider [phone] Magdy Navarrete MD Unavailable [phone] Allergies Active Allergy Reactions Criticality Noted Date [...] Department Care Team Description 09/17/2024 3:30 PM DOLL WIG MAKER Office Visit [facility] [address] [place] [address] Magdy Navarrete MD Mild cognitive [...] Comments Blood Pressure 122/72 09/17/2024 3:33 PM DOLL WIG MAKER Pulse 67 09/17/2024 3:33 PM DOLL WIG MAKER Temperature 36.4 C (97.6 F) 09/17/2024 3:33 PM DOLL WIG MAKER Respiratory Rate 16 09/17/2024 3:33 PM DOLL WIG MAKER Oxygen Saturation 97% 09/17/2024 3:33 PM DOLL WIG MAKER Inhaled Oxygen Concentration - - Weight 75.6 kg (166 lb 11.2 oz) 09/17/2024 3:33 PM DOLL WIG MAKER Height 167.6 cm (5' 6 ) 09/17/2024 3:33 PM DOLL WIG MAKER Body Mass Index 26.91 09/17/2024 3:33 PM DOLL WIG MAKER Plan of Treatment Upcoming Encounters Date Type Department Care Team (Late st Contact Info) Description 12/14/2024 2:30 PM CDT Office Visit [facility] - Neurology [facility] [address] [place] [address] Magdy Navarrete MD [address] [place] [address] Health Maintenance Due Date Last Done Comments [...] Associated Diagnosis Comments MISCELLANEOUS TEST (NOT FOR [place]) Routine 09/19/2024 Mild cognitive impairment from Last 3 Months Results * MISCELLANEOUS TEST (NOT FOR [place]) (09/19/2024) Other 09/19/2024 us Magdy Navarrete MD LAB SEND OUTS Final Result from Last 3 Months Insurance MEDICARE [facility] SUPPLE[facility]AL Care Teams Reiki Practitioner Relationship Specialty Start Date End Date Leana Shi MD [address] [place] [address] PCP - General Geriatric Medicine 05/16/24 Magdy Navarrete MD [address] [place] [address] Consulting Physician Neurology 09/17/24
[2024-11-15 13:24] LABS: Influenza A QL RT-PCR Negative (Negative); Influenza B QL RT-PCR Negative (Negative); RSV RNA, RT-PCR Negative (Negative); SARS-CoV-2 RNA PCR Negative (Negative)
--- OUTSIDE RECORDS SUMMARY | 2024-11-15 13:30 | XMS_ITS | CONTINUITY OF CARE DOCUMENT ---
Author Name julitamery julitamery Address Unknown Organization [facility] Address [address] [facility] [address] [place] [address] Phone [phone] Care Team Providers Care Index Editor Name Role Phone Marciano Gardner MD Unavailable KELLEN BEEBE MD Unavailable PROBLEMS Condition Status Date Provider Notes Cardiology examination active Marciano Gardner MD Dizziness active Marciano Gardner MD Ventricular tachycardia, nonsustained active 5 Marciano Gardner MD ENCOUNTERS Date Type Provider Location Encounter Diag nosis 0 - 0 In-person encounter Office Visit Marc[facility] 5 - 5 In-person encounter Office Visit Marciano [facility] Cardiology examinationDizzinessVentricular tachycardia, nonsustained VITAL SIGNS [...] Payer name Policy type / Coverage type [place] red constitution party ID [employer] Commercial insurance [place] MEDICARE PART B Medicare [id number] ADVANCE DIRECTIVES Name Date DISCUSSED - NO DECISION MADE TREATMENT PLAN Date Name Performer Cardiology Marciano Gardner MD Cardiology Marciano Gardner MD Date Name Carotid Duplex Bilat eral Stress Regadenoson Complete Echo HISTORY OF PROCEDURES Procedure Date Procedure Name Provider Procedure Notes S tatus EKG Marciano Gardner MD complete d
[2024-11-15] MEDS: ONDANSETRON INJ 4 MG/2 ML VIAL IV PUSH (14:35)
[2024-11-15 14:48] LABS: Add Urine Microscopic? NO; Appearance Urine Clear (Clear); Bilirubin Urine Negative (Negative); Blood Urine Trace-intact (Negative); Color Urine Light Yellow (Yellow); Glucose Urine UA Negative (Negative); Ketones Urine Negative (Negative); Leukocyte Esterase Ur Negative LEU/UL (Negative); Nitrate Urine Negative (Negative); Protein Urine Negative (Negative); Urobilinogen Urine 0.2 mg/dL (0.2-1.0)
--- NOTE | 2024-11-15 14:50 | ED_ITS ---
HPI - Nausea/Vomiting/Diarrhea General Chief complaint: Nausea/Vomiting/Diarrhea Stated complaint: vomiting, headache, dizziness, slurred speech Time Seen by Provider: 11/15/24 12:24 Source: patient and family Mode of arrival: ambulatory Limitations: no limitations History of Present Illness HPI Narrative: this is a 79-year-old female that lives at home presents with some episodes of nausea and vomiting that started early this morning with no associated symptoms, no abdominal pain no fever chills no diarrhea or constipation no flank pain or dysuria no hematuria no chest pain or shortness of breath. MD elicited complaint: nausea and vomiting Onset (ago): hour(s) Description of vomiting: watery Description of diarrhea: mucus and watery Associated nausea: Yes Associated abdominal pain: No Location of pain: none Related Data Allergies Allergy/AdvReac Type Severity Reaction Status Date / Time iodine Allergy Severe Anaphylactic Verified 11/15/24 12:43 Shock nortriptyline (From [place]or) Allergy Intermediate Abdominal Verified 11/15/24 12:43 Pain Review of Systems 2 Review of Systems: All systems reviewed & are unremarkable except as noted in HPI and below PMFSH Past Medical History Medical History Calculus of kidney Patient denies significant medical history Surgical History Surgical History History of appendectomy Social History Social History Smoking status: Never smoker Gender identity (if verbalized by the patient): Female Exam 2 Const: General: healthy appearing and no acute distress Nutritional Appearance: well nourished Orientation/consciousness: patient oriented x3 Limitations: no limitations HENMT: Head: normal to inspection Eyes: Conjunctivae: conjunctivae normal Neck: Neck: normal visual inspection, no lymphadenopathy and no meningeal signs Chest: Chest palpation & inspection: normal inspection of the chest Resp: Effort & Inspection: normal respiratory effort Auscultation: clear to auscultation bilaterally Cardio: Rate: regular rate Rhythm: regular rhythm GI: GI Palp: Yes Soft to palpation Auscultation: normal bowel sounds : General: Yes bladder normal to palpation Urinary Catheter: Urinary Catheter: patent and draining Skin: General skin exam: normal color Rashes: no rashes Wounds: no wounds Neuro: General: patient oriented x3, moves all extremities, no meningeal signs and no focal motor deficits Extrem: General: normal to inspection and no clubbing, cyanosis or edema Course Course Emergency Course: Insert vitals are stable patient had blood work was within normal range , patient received IV fluids and IV Zofran. COVID RSV and influenza negative. Vital Signs Vital signs: Vital Signs Temperature 36.2 C L 11/15/24 12:01 Pulse Rate 82 11/15/24 12:01 Respiratory Rate 14 11/15/24 12:01 Blood Pressure 153/79 H 11/15/24 12:01 Pulse Oximetry 97 11/15/24 12:01 Oxygen Delivery Room Air 11/15/24 12:01 Temperature 36.2 C L 11/15/24 12:01 Pulse Rate 79 11/15/24 14:24 Respiratory Rate 18 11/15/24 14:22 Blood Pressure 150/79 H 11/15/24 14:22 Pulse Oximetry 96 11/15/24 14:22 Oxygen Delivery Room Air 11/15/24 12:01 MDM - Nausea/Vomiting/Diarrhea Lab Data 11/15/24 12:41 11/15/24 12:41 Labs: Lab Results 11/15/24 11/15/24 11/15/24 Range/Units 12:18 12:30 12:41 WBC 5.3 (4.8-10.8) K/mm3 RBC 4.07 L (4.20-5.40) M/mm3 Hgb 13.4 (11.7-13.8) g/dL Hct 40.4 (35.0-42.0) % MCV 99.3 (78.0-102.0) fL MCH 32.9 H (27.0-31.0) pg MCHC 33.2 (32-36) g/dL RDW 12.4 (11.6-14.4) % Plt Count 171 (150-420) K/mm3 MPV 9.3 (9.2-11.8) fl Immature Gran % (Auto) 0.4 H (0.0-0.0) % Neut % (Auto) 70.7 H (50.0-70.0) % Lymph % (Auto) 20.2 (18.0-42.0) % [place] % (Auto) 7.3 (2.0-11.0) % Eos % (Auto) 0.8 L (1.0-6.0) % Baso % (Auto) 0.6 (0.0-1.0) % Lymph # (Auto) 1.07 L (1.10-4.50) K/mm3 [place] # (Auto) 0.39 (0.10-0.90) K/mm3 Eos # (Auto) 0.04 (0.02-0.50) K/mm3 Baso # (Auto) 0.03 (0.00-0.10) K/mm3 Abs Immat Gran (auto) 0.02 H (0.00-0.00) K/mm3 Absolute Neuts (auto) 3.76 (1.70-7.20) K/mm3 Absolute Nucleated RBC 0.00 (0.00-0.00) K/mm3 Nucleated RBC % 0.0 (0-0.0) % Sodium 141 (136-145) mmol/L Potassium 3.7 (3.5-5.1) mmol/L Chloride 104 (98-108) mmol/L Carbon Dioxide 31 (21-32) mmol/L Anion Gap 6 (4-12) mmol/L BUN 19 H (7-18) mg/dL Creatinine 0.78 (0.55-1.02) mg/dL Estim Creat Clear Calc 49 ml/min Estimated GFR > 60 (59 - ) Glucose 121 H (70-99) mg/dL POC Capillary Glucose 123 H (65-105) mg/dl Calculated Osmolality 295 (285-295) mOsm/kg Lactic Acid 0.8 (0.4-2.0) mmol/L Calcium 8.8 (8.5-10.1) mg/dL Total Bilirubin 0.7 (0.00-1.00) mg/dL AST 16 (15-37) U/L ALT 24 (14-59) U/L Alkaline Phosphatase 67 (46-116) U/L Troponin I 8.9 (0.00-60.4) ng/L Total Protein 6.6 (6.4-8.2) g/dL Albumin 3.4 (3.4-5.0) g/dL Urine Color Pending Urine Appearance Pending Urine pH Pending Ur Specific [place] Pending Urine Protein Pending Urine Glucose (UA) Pending Urine Ketones Pending Ur Blood (Man) Pending Urine Nitrate Pending Urine Bilirubin Pending Urine Urobilinogen Pending Leukocyte Esterase Rfl Pending Influenza A (RT-PCR) Negative (Negative) Influenza B (RT-PCR) Negative (Negative) RSV (RT-PCR) Negative (Negative) SARS-CoV-2 RNA (RT-PCR) Negative (Negative) Critical Care Time Critical Care Time Critical Care Time: No Discharge Plan Discharge Clinical Impression: Gastroenteritis Patient Disposition: Home Condition: Stable Instructions: Antibiotic Form, Clear Liquid Diet (ED), Gastroenteritis (ED), Acute Nausea and Vomiting (ED) Additional Instructions: advised take medication as prescribed and follow with primary care physician if symptoms persist or worsen. Patient Language: German Prescriptions: New ondansetron 4 mg tablet,disintegrating 4 mg PO Q6H PRN (Reason: nausea and vomiting) Qty: 14 0RF No Action meclizine 25 mg tablet 25 mg PO TID PRN (Reason: dizziness) Qty: 20 0RF cephalexin 500 mg capsule 500 mg PO BID 7 Days Qty: 14 0RF Follow-up/Referrals: Yuridia,MD Leana [Primary Care Provider] -
== END 2024-11-15 15:05 | disposition home or self-care (01) ==
PROVIDERS: Emergency Provider Emergency Medicine; PCP Internal Medicine Geriatric Medicine
DX: K52.9 Noninfective gastroenteritis and colitis, unspecified (principal); Z20.822 Contact with and (suspected) exposure to COVID-19
CPT/HCPCS: 36415; 80053; 81003; 82948; 83605; 84484; 85025; 87637; 96361; 96374; 99284; J2405; J7030

== ENCOUNTER 2024-12-04 13:03 | Outpatient (CLI) | payer MEDICARE, SELFPAY ==
--- NOTE | ~2024-12-04 | DEXA_ITS ---
Bone Density Report Name: BERE KUNZ Age: 79 Sex: Female Ethnicity: White Date of : 1945 Indication: postmenopausal; screening for osteoporosis; height loss; Referring Provider: ABIEL, KELLEN Study: Bone densitometry was performed. Exam Date: December 04, 2024 Accession number: [id number] Bone Density: Region BMD T-score Z-score Classification AP Spine(L1-L4) 0.863 -1.7 0.9 Osteopenia Femoral Neck (Left) 0.626 -2.0 0.2 Osteopenia Total Hip (Left) 0.715 -1.9 0.1 Osteopenia Femoral Neck (Right) 0.611 -2.1 0.1 Osteopenia Total Hip (Right) 0.713 -1.9 0.1 Osteopenia Femoral Neck Mean 0.618 -2.1 0.1 Osteopenia Total Hip Mean 0.714 -1.9 0.1 Osteopenia World Health Organization criteria for BMD impression classify patients as: Normal (T-score at or above -1.0), Osteopenia (T-score between -1.0 and -2.5), or Osteoporosis (T-score at or below -2.5). 10-year Fracture Risk(1): Major Osteoporotic Fracture 16% Hip Fracture 4.6% Reported Risk Factors: [place] (), Neck BMD=0.611, BMI=24.7 (1) FRAX(R) Version 3.08. Fracture probability calculated for an untreated patient. Fracture probability may be lower if the patient has received treatment. Clinical Information Provided by Patient: Patient maximum height was 68 Menopause Age: 52 Does not regularly consume dairy products Onset of menses at age 17 Number of children 2 Impression: The patient has low bone mass, based on the Right Femoral Neck T-score. Discussion: BONE DENSITY IS LOW AT ONE OR MORE SKELETAL SITES. This patient's lowest T-score is low at one or more skeletal sites. It meets the World Health Organization's (WHO) criteria for “low bone mass” (T-score between -1.0 and -2.5). The patient's 10-year risk of fracture as calculated by FRAX is less than the threshold where pharmacological therapy is recommended by the National Osteoporosis Foundation (NOF). However, all treatment decisions require clinical judgment and consideration of individual patient factors, including patient preferences, comorbidities, previous drug use, risk factors not captured in the FRAX model (e.g., frailty, falls, vitamin D deficiency, increased bone turnover, interval significant decline in bone density) and possible under or overestimation of fracture risk by FRAX. The patient should follow a healthful lifestyle (good nutrition with adequate calcium and vitamin D, and appropriate weight-bearing exercise). Follow-Up: Consider repeating this study in 2 to 3 years to reassess this patient's status, or sooner if there is some new clinical indication. Reported by: TURNER on 12/04/2024 1:57:00 PM. Reviewed, dictated and finalized at location A.
--- NOTE | ~2024-12-04 | MM_ITS ---
EXAMINATION: MM screening arnaldo BI w sonja HISTORY: Screening mammogram TECHNIQUE: Craniocaudal and mediolateral oblique 3-D tomosynthesis images were obtained and synthetic 2-D images were generated. CAD analysis was submitted and interpreted. COMPARISON: No prior mammogram is available for comparison at this institution. BREAST PARENCHYMAL COMPOSITION:Dense: The breasts are heterogeneously dense, which may obscure small masses. FINDINGS: No suspicious mass, calcification, or architectural distortion are identified in either jonathon ast to suggest malignancy. There has been no suspicious interval change. IMPRESSION: No mammographic evidence of malignancy. Recommend routine screening mammography in one year. BI-RADS Category 1: Negative Reviewed, dictated and finalized at location .
--- OUTSIDE RECORDS SUMMARY | 2024-12-04 13:22 | XMS_ITS | Encounter Summary ---
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 [employer] Gender Identity Not on file Sexual Orientation Not on file 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 Not on file Not on file Not on fi le documented as of this encounter Plan of Treatment Not on file documented as of this encounter Visit Diagnoses Not on filedocumented in this encounter Care Teams Reforestation Worker Relationship Specialty Start Date End Date Leana Shi MD PCP - General 10/22/16 Damon Floyd MD [address] [facility] [address] [place] [address] [id number] Consulting Physician Neurology 07/14/18 Tom Tafoya Si, MD [address] [facility] [address] [place] [address] Consulting Physician Neurology 06/07/24 Magdy Navarrete MD [address] [place] [address] Referring Physician Neurology 11/26/24 documented as of this encounter
--- OUTSIDE RECORDS SUMMARY | 2024-12-04 13:22 | XMS_ITS | Encounter Summary ---
Author Organization [facility] Healthcare Address [address] [place] [address] Care Team Providers Care Manager Business Operations Name Role Phone Leana Shi MD Primary Care Provider + [phone] Damon Floyd MD Unavailable [phone] Tom Tafoya Si, MD Unavailable Magdy Navarrete MD Unavailable [phone] Encounter Details Date Type Department Care Team (Late st Contact Info) Description 11/18/2024 Results Follow-Up [facility] [address] [place] [id number] Leana Shi MD [address] [place] [address] Social History Tobacco Use Types Packs/Day Years [...] on file 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 Gender Identity Not on file Sexual Orientation Not on file 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 Not on file Not on file Not on fi le documented as of this encounter Plan of Treatment Not on file documented as of this encounter Visit Diagnoses Not on filedocumented in this encounter Care Teams Manager Business Operations Relationship Specialty Start Date End Date Leana Shi MD PCP - General 10/22/16 Damon Floyd MD [address] [facility] [address] [place] [address] Consulting Physician Neurology 07/14/[facility] [address] [facility] [address] [place] [address] Consulting Physician Neurology 06/07/24 Magdy Navarrete MD [address] [place] [phone] Referring Physician Neurology 11/26/24 documented as of this encounter
--- OUTSIDE RECORDS SUMMARY | 2024-12-04 13:22 | XMS_ITS | Encounter Summary ---
Author Organization [facility] Address [address] [place] [address] Phone Care Team Providers Care Parts Clerk Name Role Phone Leana Shi MD Primary Care Provider [phone] Damon Floyd MD Unavailable Mattie Khoury Unavailable [phone] [facility] Un[facility] Magdy Navarrete MD Unavailable [phone] Encounter Details Date Type Department Care Team (Late st Contact Info) Description 12/08/2017 Orders Only [facility] [address] [place] [address] Leana Shi MD [address] [place] [address] Social History Tobacco Use Types Packs/Day Years Used Date Smoking Tobacco: Never Smokeless Tobacco: Never Alcohol Use Standard Drinks/Week Comments No 0 (1 standard drink = 0.6 oz pur e alcohol) Comments No Sex and Gender Information Value Date Recorded Sex Assigned at Not on file 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 Gender Identity Not on file Sexual Orientation Not on file 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 Not on file Not on file Not [...] on filedocumented in this encounter Care Teams Parts Clerk Relationship Specialty Start Date End Date Leana Shi MD PCP - General 10/22/16 Damon Floyd MD [address] [facility] [address] [place], [place] [id number] Consulting Physician Neurology 07/14/18 Mattie Khoury [address] [place] [address] [address] [place] [address] ACO Care Boiler Riveter 01/30/19 01/31/19 Tom Tafoya Si, MD [address] [facility] [address] [place] [address] Consulting Physician Neurology 06/07/24 Magdy Navarrete MD [address] [place] [phone] Referring Physician Neurology 11/26/24 documented as of this encounter
--- OUTSIDE RECORDS SUMMARY | 2024-12-04 13:22 | XMS_ITS | Encounter Summary ---
Author Organization [facility] Address [address] [place] [address] Phone Care Team Providers Care Classifier Name Role Phone Leana Shi MD Primary Care Provider + [phone] Damon Floyd MD Unavailable [phone] [facility] Unavailable Magdy Navarrete MD Unavailable [phone] Encounter Details Date Type Department Care Team (Late st Contact Info) Description 09/16/2022 Orders Only [facility] [address] [place] [address] Leana Shi MD [address] [place] [address] Social History Tobacco Use Types [...] on file 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 Gender Identity Not on file Sexual Orientation Not on file 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
--- OUTSIDE RECORDS SUMMARY | 2024-12-04 13:22 | XMS_ITS | Clinical Summary ---
Author Organization [facility] [address] [place] [address] Phone Care Team Providers Care Warp Dyeing Tender Name Role Phone Leana Beebe MD Primary Care Provider [phone] Damon Floyd MD Unavailable [phone] [facility] Un[facility] Magdy Navarrete MD Unavailable [phone] Allergies Active Allergy Reactions Criticality Noted Date [...] because of severe dry eye syndrome Medications polyethylene glycol (MIRALAX) 17 gram/dose powderIndications: Chronic constipation Take 17 g by mouth nightly In chamomile tea 8-10 oz 850 g 11 03/08/20 23 Active estradioL (ESTRACE) 0.01 % (0.1 mg/gram) vaginal creamIndications:R ecurrent UTI Insert 2 g into the vagina nightly Apply to vagina nightly 42.5 g 11 12/08/19 24 Active Additional Information Patient not taking.Reported on 11/26/2024 ciprofloxacin (CIPRO) 500 mg tabletIndications: Recurrent UTI Take 1 tablet (500 mg total) by mouth 2 (two) times a day X 7 days 08/29/19 25 Active carbamide peroxide (DEBROX) 6.5 % otic solutionIndication s:Impacted Cerumen Administer 5 drops into each ear as needed for ear pain (tuesday right ear, tuesday left ear) 30 mL 1 11/27/19 25 026 Active calcium-vits W1-Z-W0-minerals 166.75 mg- 166.75 unit capsule Take by mouth 025 Discontin ued(Thera py completed ) carboxymethylcellu lose sodium (REFRESH LIQUIGEL OPHT) Administer into affected eye(s) 025 Discontin ued(Thera py completed ) vibegron 75 mg tabletIndications: Incontinence of urine in female Take 75 mg by mouth daily with breakfast 30 tablet 6 09/22/19 24 025 Discontin ued(Thera py completed ) meclizine (ANTIVERT) 25 mg tablet 01/28/20 24 025 Discontin ued(Thera py completed ) ALPRAZolam (XANAX) 0.25 mg tabletIndications: Vestibular disequilibrium involving right inner ear Take 1 tablet (0.25 mg total) by mouth 2 (two) times a day as needed (Vestibular dizziness) 14 tablet 05/10/20 24 025 Discontin ued(Thera py completed ) Active Problems Problem Noted Date Diagnosed Date [...] CDT Assessment & Plan (08/23/2024 12:37 PM GRAINING OPERATOR): Chronic, found on recent mobile telemetry monitoring and workup for dizziness. Heart rate regular upon auscultation without murmur today. She has been seen by cardiology for this issue and had a normal ECHO at [facility] with Dr. hopper. No further intervention at this time. Will continue to monitor. Assessment & Plan (07/31/2024 9:09 PM GRAINING OPERATOR): Chronic, found on recent mobile telemetry monitoring and workup for dizziness. Heart rate regular upon auscultation without murmur today. She has been referred to Cardiology but has yet to set up an appointment-encouraged her to do this latosha as she can not complete a stress test at this time. Memory loss or impairment 04/09/2024 Assessment & Plan (07/31/2024 9:04 PM GRAINING OPERATOR): Chronic, worsening in the last 3 months. [...] Vitamin D deficiency 04/09/2024 Kidney stone 03/04/2021 History of traumatic head injury 06/22/2018 Overview [...] 11/25/2017 Assessment & Plan (07/31/2024 8:52 PM GRAINING OPERATOR): Chronic, controlled without medications at this time. [...] Toussaint Assessment & Plan (08/23/2024 12:33 PM GRAINING OPERATOR): Dizziness Intermittent dizziness has worsened over the past few weeks. Audiological testing and MRI results are normal. Thyroid levels are slightly high but not concerning. Refer back to neurology for further evaluation and order vestibular physical therapy. Assessment & Plan (07/31/2024 9:07 PM GRAINING OPERATOR): Acute, intermittent, mostly when sitting to standing [...] WRITTEN ON 03/09/2022 2:35 PM BY SAVANNAH HERRERA, SUE Presents with dizziness worse with position changes [...] other acute changes. Advised to avoid any hhoq-ycn-ixpjnur medicines at this time. Push fluids. Follow [...] kidney Assessment & Plan (08/29/2019 12:25 PM GRAINING OPERATOR): Continue on the special kidney diet that [...] bathtub. Admits they did a CXR at [facility] that showed bruisied rib. - no [...] fit as noted above. Was seen in [facility] after fall-no records. No acute findings [...] 03/14/2020 09/22/2023 Medication monitoring encounter 03/14/2020 05/22/2024 Carotid stenosis, asymptomatic, right 02/15/2019 11/24/2024 Overview (11/24/2024): 03/2024 bilateral carotids with less than 50% stenosis. , Vertebral arteries we are both patent. Problem considered to have never been present January 2019 Mild right carotid stenosis documented on lifeline screening, no further testing ordered yet. Assessment & Plan (07/31/2024 9:08 PM GRAINING OPERATOR): Chronic, controlled. Carotid Dopplers from 03/2024 unremarkable. See plan for vestibular disequilibrium above. Assessment & Plan (04/20/2024 3:55 PM CDT): Recheck carotid dopplers today due to persistent floater in R eye and memory changes. Hyperthyroidism determined b y thyroid function test 02/11/2019 02/29/2020 Overview (02/11/2019): Began one-month in to Synthroid 0.1 mg Abnormal weight loss 02/07/2019 020 Overview (02/07/2019): Added automatically from request for surgery [id number] Assessment & Plan (08/29/2019 12:26 PM GRAINING OPERATOR): Weight remains stable, and she reports a good appetite. Nausea 02/07/2019 02/29/2020 Overview (02/07/2019): Added automatically from request for surgery [id number] Bilateral occipital neuralgia 02/02/2019 02/29/2020 Hypothyroidism, adult 12/22/20182019 Assessment & Plan (08/29/2019 12:23 PM GRAINING OPERATOR): TSH today is a little high at [...] 02/29/2020 Assessment & Plan (09/01/2019 10:16 AM GRAINING OPERATOR): Check follow up lipid panel for review with Dr. Tejal Beebe at annual. Influenza 09/06/2014 02/29/2020 Overview (10/29/2016): Influenza Cough 09/06/2014 02/29/2020 Overview (10/29/2016): Cough Trochanteric bursitis 12/08/20132019 Overview (10/29/2016): Trochanteric bursitis of both hips Hot flashes due to menopause 11/22/2012 02/29/2020 Overview (10/27/2016): Menopausal syndrome (hot flashes) Encounters Date Type Department Care Team Description 11/26/2024 9:00 AM CDT Office Visit [facility] [address] [place] [address] Leana Beebe MD Annual physical exam (Primary Dx); Mild late onset Alzheimer's dementia without behavioral disturbance, psychotic disturbance, mood disturbance, or anxiety (HCC); History of traumatic brain injury; Spondylosis of cervical region without myelopathy or radiculopathy; Vestibular disequilibrium involving both inner ears; Presbycusis of both ears; Medullary sponge kidney; Recurrent UTI; 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; Paroxysmal ventricular tachycardia (HCC); Excessive cerumen in both ear canals; Immunization counseling; Cancer of the skin, basal cell; Multiple skin nodules; Breast cancer screening by mammogram; Menopause; Colon cancer screening 11/18/2024 Results Follow-Up [facility] [address] [place] [address] Leana Beebe MD 11/15/2024 Orders Only [facility] Information Management [address] [place] [address] Scanning, Provider 11/15/2024 Telephone [facility] [address] [place] [address] Leana Beebe MD Nausea; Vomiting 11/12/2024 Orders Only [facility] Information Management [address] [place] [address] Scanning, Provider 11/12/2024 Telephone [facility] [address] [place] [address] Leana Beebe MD Urinary Problem 11/09/2024 Telephone [facility] [address] [place] [address] Leana Beebe MD 10/30/2024 [facility]phone [facility] [address] [place] [address] Leana Beebe MD 10/02/2024 Telephone [facility] [address] [place] [address] Leana Beebe MD 10/01/2024 11:15 AM CDT Office Visit [facility] [address] [place] [address] Leana Beebe MD Trochanteric bursitis, left hip (Primary Dx); Trochanteric bursitis, right hip; Tinnitus of both ears; Bilateral hearing loss, unspecified hearing loss type; Vestibular disequilibrium involving both inner ears from Last 3 Months Immunizations Immunization Administration [...] BILATERAL 07/25/2020 - 08/24/2020 Bilateral Bilateral cataract [facility] successful surgery Medical History Medical History Date Comments Hx Other Medical Appendectomy Hx Other Medical Knee repair Headache Rhinitis Dysmenorrhea Palpitations Cystocele, unspecified (CODE) Goiter small 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 No 11/24/2024 AUDIT-C Answer Date Recorded Q1: How often do you have a drink containing alcohol? Monthly or less 11/24/2024 Q2: How many drinks containi ng alcohol do you have on a typical day when you are drinking? Patient does not drink Q3: How often do you have si x or more drinks on one occasion? Never 11/24/2024 Overall Financial Resource Strain (CARDIA) Answe r Date Recorded How hard is it for you to pa y for the very basics like food, housing, medical care, and heating? Not very hard 11/24/2024 PHQ-2 Answer Date Recorded PHQ-2 Total Score (If total score is 3 or more points, staff should administer the PHQ-9) 0 11/26/2024 Hunger Vital Sign Answer Date Recorded Within the past 12 months, y ou worried that your food would run out before you got the money to buy more. Never true 11/25/19 25 Within the past 12 months, t he food you bought just didn't last and you didn't have money to get more. Never true 11/24/2024 PRAPARE - Transportation Answer Date Re corded In the past 12 months, has l ack of transportation kept you from medical appointments or from getting medications? No 09/2024 In the past 12 months, has l ack of transportation kept you from meetings, work, or from getting things needed for daily living? No 11/24/2024 Housing Stability Vital Sign Answer Larry e Recorded In the last 12 months, was t here a time when you were not able to pay the mortgage or rent on time? No 11/24/2024 Number of Times Moved in the Last Year Not on fi le 11/24/2024 At any time in the past 12 m [facility], were you homeless or living in a alf (including now)? 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 Not on file Not on file Not on fi le Obstetrics History Para Term AB IAB SAB Ectopic Multiple Livin g Live Births 2 2 2 Date Outcome GA Total Labor Labor/2nd/3rd Weight Sex Type Anes PTL Crystal A1 A5 Name Clin Term Term Last Filed Vital Signs Vital Sign Reading Time Taken Comments Blood Pressure 112/70 11/26/2024 9:37 AM CDT Pulse 75 11/26/2024 9:37 AM CDT Temperature 36.2 C (97.1 F) 11/26/2024 9:37 AM CDT Respiratory Rate 18 11/26/2024 9:37 AM CDT Oxygen Saturation 95% 11/26/2024 9:37 AM CDT Inhaled Oxygen Concentration - - Weight 70.7 kg (155 lb 12.8 oz) 11/26/2024 9:37 AM CDT Height 171.5 cm (5' 7.5 ) 11/26/2024 9:37 AM CDT Body Mass Index 24.04 11/26/2024 9:37 AM CDT Plan of Treatment Health Maintenance Due Date Last Done Comments Hepatitis B Screening 1963 DTaP/Tdap/Td Vaccine (2 - Td or Tdap) 04/20/2022 04/20/2012 Zoster Vaccine (3 of 3) 04/26/2023 03/01/2023, 09/01 Osteoporosis Screening-Bone Density Scan 08/04/2023 08/04/2021, 03/14/2020 Covid-19 Vaccine (2023-08 5 season) 2024 05/31/2022, 05/30/2022, 10/22/2021, Additional history exists Influenza Vaccine (Season Ended) 2025 09/22/2023, 07/28/2022, 05/22/2021, Additional history exists Depression Screening 11/26/2025 11/26/2024, 09/22/2023, 09/22/2023, Additional history exists Fall Risk Assessment 11/26/2025 11/26/2024, 09/22/2023, 04/09/2022, Additional history exists Well Visit 65+ 11/26/2025 11/26/2024, 08/26, 04/09/2022, Additional history exists Hepatitis C Screening Completed [...] Date/Time Associated Diagnosis Comments SCAN - LABS 11/15/2024 SCAN - LABS 11/12/2024 URINALYSIS AND REFLEX TO MICROSCOPIC AND CULTURE Routine 11/12/2024 Acute cystitis without hematuria SCREENING MAMMOGRAM BILATERAL W SAV Schedule Routine, Read Routine (OP Routine) 11/01/2023 10:42 AM CDT Breast cancer screening by mammogram DEXA AXIAL SKELETON BONE DENSITY 1 OR MORE SITES Schedule Routine, Read Routine (OP Routine) 08/04/2021 10:13 AM GRAINING OPERATOR Menopause COLONOSCOPY 03/28/2020 8:49 AM CDT HEPATITIS C ANTIBODY Routine 08/02/2016 10:03 AM GRAINING OPERATOR from Last 3 Months or Most Recently Relevant to Health Maintenance Results * SCAN - LABS (11/15/2024) us Provider Scanning Final Result * SCAN - LABS (11/12/2024) us Provider Scanning Final Result * Urinalysis reflex to microscopic and culture [...] There has been no suspicious interval change. Leana Beebe MD IMG MAMMO PROCEDURES Final Result * Dexa Axial Skeleton Bone Density 1 or 2 Site (08/04/2021 10:13 AM GRAINING OPERATOR) Anatomical Region Laterality Modality Body N/A Other 08/04/2021 11:3 1 AM GRAINING OPERATOR Narrative 08/04/2021 11:33 AM GRAINING OPERATOR EXAM DESCRIPTION: DEXA AXIAL SKELETON BONE DENSITY 1 OR MORE SITES REASON FOR STUDY: 76 y/o year old F with given history of screening. Postmenopausal Book Publisher/Model: Tipping Bucket SL (S/N [id number]) CLINICAL INFORMATION: Current height: 66 inches Maximum [...] Damon Larose M.D. MF: [email or web address] Report ID: [id number] Reading Location: [id number] Procedure Note Damon Larose MD - 08/04/2021 EXAM DESCRIPTION: DEXA AXIAL SKELETON BONE DENSITY 1 OR MORE SITES REASON FOR STUDY: 76 y/o year old F with given history ofscreening. Postmenopausal Book Publisher/Model: Mobile System 7 Discovery SL (S/N [id number]) CLINICAL INFORMATION: Current height: 66 inches Maximum [...] Damon Larose M.D. MF: [email or web address] Report ID: [id number] Reading Location: [id number] Leana Beebe MD IMG DXA PROCEDURES Final R esult * COLONOSCOPY (03/28/2020 8:49 AM CDT) Anatomical Region Laterality Modality Other Narrative [id number]|2024-12-04 13:22:00|2024-12-04 13:22:00|XMS_ITS|BKG [id number]|External Medical Summaries|[id number]|" Encounter Summary Created on: December 04, 2024 Sofia Magana : 1945 Sex: Female Author Organization [facility] Address [address] [place] [address] Phone Care Team Providers Care Warp Dyeing Tender Name Role Phone Leana Beebe MD Primary Care Provider [phone] Damon Floyd MD Unavailable [phone] Tom Tafoya Si, MD Unavailable Magdy Navarrete MD Unavailable [phone] Encounter Details Date Type Department Care Team (Late st Contact Info) Description 06/09/2020 Orders Only [facility] [address] 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
--- OUTSIDE RECORDS SUMMARY | 2024-12-04 13:22 | XMS_ITS | CONTINUITY OF CARE DOCUMENT ---
Author Name julitamery julitamery Address Unknown Organization [facility] Address [address] [place] [address] Phone [phone] Care Team Providers Care Project Management Analyst Name Role Phone Marciano Gardner MD Unavailable [phone] KELLEN BEEBE MD Unavailable [phone] PROBLEMS Condition Status Date Provider Notes Cardiology examination active Marciano Gardner MD Dizziness active Marciano Gardner MD Ventricular tachycardia, nonsustained active 5 Marciano Gardner MD ENCOUNTERS Date Type Provider Location Encounter Diag nosis 0 - 0 In-person encounter Office Visit Marciano Gardner MD [facility] 5 - 5 In-person encounter Office Visit Marciano Gardner MD [facility] Cardiology examinationDizzinessVentricular tachycardia, nonsustained VITAL SIGNS [...] Payer name Policy type / Coverage type Leola red republican ID [id number] Commercial insurance [place] MEDICARE PART B Medicare [id number] ADVANCE DIRECTIVES Name Date DISCUSSED - NO DECISION MADE TREATMENT PLAN Date Name Performer Cardiology Marciano Gardner MD Cardiology Marciano Gardner MD Date Name Carotid Duplex Bilat eral Stress Regadenoson Complete Echo HISTORY OF PROCEDURES Procedure Date Procedure Name Provider Procedure Notes S tatus EKG Marciano Gardner MD complete d
--- OUTSIDE RECORDS SUMMARY | 2024-12-04 13:22 | XMS_ITS | Clinical Summary ---
Author Organization [facility] Address [address] [place] [address] Phone Care Team Providers Care Cork Cutter Name Role Phone Leana Shi MD Primary Care Provider [phone] Magdy Navarrete MD Unavailable [phone] Allergies Active Allergy Reactions Criticality Noted Date [...] Department Care Team Description 09/17/2024 3:30 PM ROD MILL OPERATOR Office Visit [facility] [address] [place] [address] Magdy Navarrete MD Mild cognitive [...] Comments Blood Pressure 122/72 09/17/2024 3:33 PM ROD MILL OPERATOR Pulse 67 09/17/2024 3:33 PM ROD MILL OPERATOR Temperature 36.4 C (97.6 F) 09/17/2024 3:33 PM ROD MILL OPERATOR Respiratory Rate 16 09/17/2024 3:33 PM ROD MILL OPERATOR Oxygen Saturation 97% 09/17/2024 3:33 PM ROD MILL OPERATOR Inhaled Oxygen Concentration - - Weight 75.6 kg (166 lb 11.2 oz) 09/17/2024 3:33 PM ROD MILL OPERATOR Height 167.6 cm (5' 6 ) 09/17/2024 3:33 PM ROD MILL OPERATOR Body Mass Index 26.91 09/17/2024 3:33 PM ROD MILL OPERATOR Plan of Treatment Upcoming Encounters Date Type Department Care Team (Late st Contact Info) Description 12/14/2024 2:30 PM CDT Office Visit [facility] - Neurology [facility] [address] [place] [address] Magdy Navarrete MD [address] [place] [address] Health Maintenance Due Date Last Done Comments Hepatitis C Virus (HCV) Screening 1945 Respiratory Syncytial Virus (RSV) Immunization (Adult) (1 - 1-dose 75+ series) 2022 Zoster Immunization (3 of 3) 04/26/2023 03/01/2023, 09/01/2010 DEXA Bone Density 08/04/2023 08/04/2021, 03/14/2020 SARS-COV-2 Immunization ( season) 2024 05/30/2022, 10/22/2021, 05/22/2021, Additional history exists Influenza Immunization (Season Ended) 2025 09/22/2023, 07/28/2022, 05/22/2021, Additional history exists TdaP Immunization Completed [...] Associated Diagnosis Comments MISCELLANEOUS TEST (NOT FOR [place]) Routine 09/19/2024 Mild cognitive impairment from Last 3 Months Results * MISCELLANEOUS TEST (NOT FOR [place]) (09/19/2024) Other 09/19/2024 Magdy Navarreet MD LAB SEND OUTS Final Result from Last 3 Months Insurance MEDICARE C [facility] Care Teams Cork Cutter Relationship Specialty Start Date End Date Leana Shi MD [address] [place] [address] PCP - General Geriatric Medicine 05/16/24 Mgady Navarrete MD [address] [place] [address] Consulting Physician Neurology 09/17/24
--- OUTSIDE RECORDS SUMMARY | 2024-12-04 13:23 | XMS_ITS | Referral Summary ---
Author Organization [facility] [address] Address [address] [place] [address] Phone Care Team Providers Care Putty Glazer Name Role Phone Leana Beebe MD Primary Care Provider + [phone] Damon Floyd MD Unavailable [phone] Tom Tafoya Si, MD Unavailable Magdy Navarrete MD Unavailable [phone] Encounters Date Type Department Care Team Description 11/26/2024 9:00 AM CDT Office Visit [facility] [address] [place] [address] Leana Beebe MD Annual physical exam (Primary [...] Menopause; Colon cancer screening 11/18/2024 Results Follow-Up [facility] [address] [place] [address] Leana Beebe MD 11/15/2024 Orders Only [facility] [place] Health Information Management [address] [place] [address] Scanning, Provider 11/15/2024 [facility]phone [facility] [address] [place] [address] Leana Beebe MD Nausea; Vomiting 11/12/2024 Orders Only [facility] [place] Health Information Management [address] [place] [address] Scanning, Provider 11/12/2024 [facility]phone [facility] [address] [place] [address] Leana Beebe MD Urinary Problem 11/09/2024 Telephone [facility] [address] [place] [address] Leana Beebe MD 10/30/2024 [facility]phone [facility] [address] [place] [address] Leana Beebe MD 10/02/2024 Telephone [facility] [address] [place] [address] Leana Beebe MD 10/01/2024 11:15 AM CDT Office Visit [facility] [address] [place] [address] Leana Beebe MD Trochanteric bursitis, left hip (Primary Dx); Trochanteric bursitis, right hip; Tinnitus of both ears; Bilateral hearing loss, unspecified hearing loss type; Vestibular disequilibrium involving both inner ears from Last 3 Months Allergies Active Allergy [...] mL 1 11/27/19 25 026 Active calcium-vits K3-O-J9-minerals 166.75 mg- 166.75 unit capsule Take by [...] CDT Assessment & Plan (08/23/2024 12:37 PM SENIOR VISUAL DESIGNER): Chronic, found on recent mobile telemetry monitoring and workup for dizziness. Heart rate regular upon auscultation without murmur today. She has been seen by cardiology for this issue and had a normal ECHO at [facility] with Dr. hopper. No further intervention at this time. Will continue to monitor. Assessment & Plan (07/31/2024 9:09 PM SENIOR VISUAL DESIGNER): Chronic, found on recent mobile telemetry monitoring and workup for dizziness. Heart rate regular upon auscultation without murmur today. She has been referred to Cardiology but has yet to set up an appointment-encouraged her to do this latosha as she can not complete a stress test at this time. Memory loss or impairment 04/09/2024 Assessment & Plan (07/31/2024 9:04 PM SENIOR VISUAL DESIGNER): Chronic, worsening in the last 3 months. [...] 11/25/2017 Assessment & Plan (07/31/2024 8:52 PM SENIOR VISUAL DESIGNER): Chronic, controlled without medications at this time. [...] Toussaint Assessment & Plan (08/23/2024 12:33 PM SENIOR VISUAL DESIGNER): Dizziness Intermittent dizziness has worsened over the past few weeks. Audiological testing and MRI results are normal. Thyroid levels are slightly high but not concerning. Refer back to neurology for further evaluation and order vestibular physical therapy. Assessment & Plan (07/31/2024 9:07 PM SENIOR VISUAL DESIGNER): Acute, intermittent, mostly when sitting to standing [...] other acute changes. Advised to avoid any waxr-udw-xiaqant medicines at this time. Push fluids. Follow [...] kidney Assessment & Plan (08/29/2019 12:25 PM SENIOR VISUAL DESIGNER): Continue on the special kidney diet that [...] bathtub. Admits they did a CXR at [facility] that showed bruisied rib. - no records. [...] fit as noted above. Was seen in [facility] after fall-no records. No acute findings on [...] yet. Assessment & Plan (07/31/2024 9:08 PM SENIOR VISUAL DESIGNER): Chronic, controlled. Carotid Dopplers from 03/2024 unremarkable. [...] (02/07/2019): Added automatically from request for surgery [id number] Assessment & Plan (08/29/2019 12:26 PM SENIOR VISUAL DESIGNER): Weight remains stable, and she reports a good appetite. Nausea 02/07/2019 02/29/2020 Overview (02/07/2019): Added automatically from request for surgery [id number] Bilateral occipital neuralgia 02/02/2019 02/29/2020 Hypothyroidism, adult 12/22/20182019 Assessment & Plan (08/29/2019 12:23 PM SENIOR VISUAL DESIGNER): TSH today is a little high at [...] 02/29/2020 Assessment & Plan (09/01/2019 10:16 AM SENIOR VISUAL DESIGNER): Check follow up lipid panel for review [...] drink = 0.6 oz pur e alcohol) [facility] Utilities Answer Date Recorded In the past 12 months has [employer], [employer], or [employer] threatened to shut off services in your [...] any time in the past 12 m [facility], were you homeless or living in a chcf (including now)? 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 Not on file Not on file Not [...] 11/26/2024 9:37 AM CDT Plan of Treatment Not on [...] Read Routine (OP Routine) 08/04/2021 10:13 AM SENIOR VISUAL DESIGNER Menopause COLONOSCOPY 03/28/2020 8:49 AM CDT HEPATITIS C ANTIBODY Routine 08/02/2016 10:03 AM SENIOR VISUAL DESIGNER from Last 3 Months or Most Recently Relevant to Health Maintenance Results * SCAN - LABS (11/15/2024) us Provider Scanning Final Result * SCAN - LABS (11/12/2024) us Provider Scanning Final Result * Urinalysis reflex to microscopic and culture Urine, bladder (11/12/2024) Urine, bladder Leana Beebe MD LAB MICROBIOLOGY - GENERAL [...] 1 or 2 Site (08/04/2021 10:13 AM SENIOR VISUAL DESIGNER) Anatomical Region Laterality Modality Body N/A Other 08/04/2021 11:3 1 AM SENIOR VISUAL DESIGNER Narrative 08/04/2021 11:33 AM SENIOR VISUAL DESIGNER EXAM DESCRIPTION: DEXA AXIAL SKELETON BONE DENSITY 1 OR MORE SITES REASON FOR STUDY: 76 y/o year old F with given history of screening. Postmenopausal Organic Chemistry Teacher/Model: Avegant SL (S/N [id number]) CLINICAL INFORMATION: Current height: 66 inches Maximum [...] Damon Larose M.D. MF: [email or web address] Report ID: [id number] Reading Location: [place] [address] Procedure Note Damon Larose MD - 08/04/2021 EXAM DESCRIPTION: DEXA AXIAL SKELETON BONE DENSITY 1 OR MORE SITES REASON FOR STUDY: 76 y/o year old F with given history ofscreening. Postmenopausal Organic Chemistry Teacher/Model: Gaikai Discovery SL (S/N [id number]) CLINICAL INFORMATION: Current height: 66 inches Maximum [...] 08/04/2021 11:33 AM - Electronically signed by aDmon Larose M.D. MF: [email or web address] Report ID: [id number] Reading Location: [id number] [place] Leana Beebe MD IMG DXA PROCEDURES Final R esult * COLONOSCOPY (03/28/2020 8:49 AM CDT) Anatomical Region Laterality Modality Other Narrative Procedure Note Paula Black MD - 03/28/2020 8:49 AM CDT [facility] Patient Name: Sofia Magana Procedure Date: 03/28/2020 8:49 AM Date of : 1945 Admit Type: Outpatient Age: 75 Gender: Female Attending MD: Paula Black M.D. Room: [facility] ENDOSCOPY ROOM 1 Note Status: Finalized Patient [...] passed under direct vision. The PediatricColonoscope PCF-H190L [id number] was introduced through the anusand advanced to [...] 8:49 AM Procedure Code(s): --- Professional --- 28272, Colonoscopy, flexible; with biopsy, single or multiple Diagnosis Code(s): --- Professional --- Z12.11, Encounter for screening for malignant neoplasm of colon K64.8, Other hemorrhoids D12.3, Benign neoplasm of transverse colon (hepatic flexure orsplenic flexure) CPT copyright 2017 [employer] [place]. All rights reserved. The codes documented in this report are preliminary and upon reading recovery teacher reviewmay be revised to meet current compliance requirements. Recognized by the [place] [employer] for promoting quality in endoscopy Paula Black MD ENDOSCOPY PROCEDURES Final Result * Hepatitis C antibody (08/02/2016 10:03 AM SENIOR VISUAL DESIGNER) SIGNAL TO CUT-OFF 0.03 <1.00 [facility]ISTORICAL RESULTS Comment: REPORT COMMENT: FASTING:UNKNOWN Test performed [facility] [address] [place] [address] Director: LEONARD CUENCA DO,MPH Hep C Ab NON-REACT LEYLA NON-REACT LEYLA [facility]ISTORICAL RESULTS 08/02/2016 10:0 3 AM SENIOR VISUAL DESIGNER Leana Beebe MD LAB MICROBIOLOGY - GENERAL ORDERABLES Final Result [facility] RESULTS from Last 3 Months or Most Recently Relevant to Health Maintenance Insurance MEDICARE COMMERCIAL GENERIC Member Subscriber Plan / Payer (Ef fective 2017-Present) [id number]|2024-11-29 23:14:00|2024-11-29 23:14:00|ED_ITS|MANDISM|Health Information Management|[id number]|"HPI - Skin/Abscess/Foreign Bdy General Chief complaint: Skin/Abscess/Foreign Body Stated complaint: bed sore Source: patient, family and EMS Mode of arrival: EMS Limitations: physical limitation and clinical condition History of Present Illness HPI narrative: this is a 70-year-old male with a history of stroke with left-sided weakness that occurred back in August patient has been informed and was in rehab center and [address] and he decided to sign out AMA and drove directly from [place] to [place], family had prepared lift and a hospital bed I did not arrive to the family's home. Patient has left-sided weakness from his stroke that occurred in August has a decubitus ulcer on the sacral area that is I looks clean stage II with no tracking. Patient is afebrile with no nausea vomiting no abdominal pain no chest pain no shortness of breath. Patient has an indwelling Wallis and had a foul smell wellness Wallis bag was changed. MD complaint: other Onset (ago): month(s) Severity: moderate Related Data Home Medications Medication Instructions Recorded Confirmed Last Taken Type acetaminophen 325 mg capsule 650 mg PO Q4-6H PRN pain 11/29/24 Unknown History amlodipine 10 mg tablet 10 mg PO DAILY 11/29/24 Unknown History aspirin 81 mg chewable tablet 81 mg PO DAILY 11/29/24 Unknown History (Jeremías Chewable Low Dose Aspirin) atorvastatin 40 mg tablet (Lipitor) 40 mg PO HS 11/29/24 Unknown History clopidogrel 75 mg tablet 75 mg PO DAILY 11/29/24 Unknown History gabapentin 300 mg capsule 300 mg PO BID 11/29/24 Unknown History insulin glargine 100 unit/mL (3 10 unit subcut DAILY 11/29/24 Unknown History mL) subcutaneous pen (Lantus Solostar U-100 Insulin) insulin lispro 100 unit/mL 1 sliding scale dose subcut 11/29/24 Unknown History subcutaneous solution (Humalog USEASDIRECTD U-100 Insulin) lisinopril 20 mg tablet 20 mg PO BID 11/29/24 Unknown History multivitamin with minerals (DAILY 1 tablet PO DAILY 11/29/24 Unknown History VITAMIN FORMULA-MINERALS tablet) nicotine 14 mg/24 hr daily 1 patch transdermal DAILY 11/29/24 Unknown History transdermal patch sennosides 8.6 mg-docusate sodium 1 tab-cap PO BID PRN constipation 11/29/24 Unknown History 50 mg tablet tramadol 50 mg tablet 50 mg PO Q6-8H PRN pain 11/29/24 Unknown History Allergies Allergy/AdvReac Type Severity Reaction Status Date / Time TIDE POWDER Allergy Intermediate Hives Uncoded 11/29/24 22:43 Review of Systems 2 Review of Systems: All systems reviewed & are unremarkable except as noted in HPI and below PMFSH Past Medical History Medical History CVA (cerebral vascular accident) HTN (hypertension) HLD (hyperlipidemia) Diabetes mellitus Exam 2 Const: General: no acute distress Nutritional Appearance: well nourished Orientation/consciousness: patient oriented x3 Limitations: no limitations HENMT: Head: normal to inspection Eyes: Conjunctivae: conjunctivae normal Neck: Neck: normal visual inspection Chest: Chest palpation & inspection: normal inspection of the chest Resp: Effort & Inspection: normal respiratory effort Auscultation: clear to auscultation bilaterally Cardio: Rate: tachycardic Rhythm: regular rhythm GI: Auscultation: normal bowel sounds Rectal Exam: normal sphincter tone : General: Yes bladder normal to palpation Urinary Catheter: Urinary Catheter: urine cloudy and urine dark Back/Spine/Pelvis: Back: no CVA tenderness Skin: Other: stage II decubitus ulcer with some no redness or erythema no drainage. Neuro: General: patient oriented x3 Extrem: General: normal to inspection and no clubbing, cyanosis or edema Course Course Emergency Course: Patient had blood work performed with CBC of and white blood cell count 10.4 had a UA performed which shows 2+ bacteria and greater than 75,000 white cells with leukocytes consistent with UTI and will start the patient on IV Levaquin. Blood cultures obtained IV fluids started and patient will it be admitted for urinary tract infection and social media content manager to consult for possible placement are hospital bed to be sent to patient's and family's home. Vital Signs Vital signs: Vital Signs Temperature 36.7 C 11/29/24 22:18 Pulse Rate 118 H 11/29/24 22:18 Respiratory Rate 18 11/29/24 22:18 Blood Pressure 142/71 H 11/29/24 22:18 Pulse Oximetry 95 11/29/24 22:18 Oxygen Delivery Room Air 11/29/24 22:18 Temperature 36.7 C 11/29/24 22:18 Pulse Rate 116 H 11/29/24 23:05 Respiratory Rate 20 11/29/24 23:05 Blood Pressure 160/89 H 11/29/24 23:05 Pulse Oximetry 98 11/29/24 23:05 Oxygen Delivery Room Air 11/29/24 23:05 MDM - Skin/Abscess/Foreign Bdy Lab Data 11/29/24 22:55 11/29/24 22:55 Labs: Lab Results 11/29/24 11/29/24 Range/Units 22:23 22:55 WBC 10.4 (4.8-10.8) K/mm3 RBC 4.58 L (4.70-6.10) M/mm3 Hgb 12.8 (12.4-15.3) g/dL Hct 39.6 (37.0-46.0) % MCV 86.5 (78.0-102.0) fL MCH 27.9 (27.0-31.0) pg MCHC 32.3 (32-36) g/dL RDW 12.8 (11.6-14.4) % Plt Count 388 (150-420) K/mm3 MPV 9.5 (8.7-11.0) fl Immature Gran % (Auto) 0.3 H (0.0-0.0) % Neut % (Auto) 73.3 H (50.0-70.0) % Lymph % (Auto) 15.5 L (18.0-42.0) % [place] % (Auto) 7.4 (2.0-11.0) % Eos % (Auto) 3.1 (1.0-6.0) % Baso % (Auto) 0.4 (0.0-1.0) % Lymph # (Auto) 1.62 (1.10-4.50) K/mm3 [place] # (Auto) 0.77 (0.10-0.90) K/mm3 Eos # (Auto) 0.32 (0.02-0.50) K/mm3 Baso # (Auto) 0.04 (0.00-0.10) K/mm3 Abs Immat Gran (auto) 0.03 H (0.00-0.00) K/mm3 Absolute Neuts (auto) 7.64 H (1.70-7.20) K/mm3 Absolute Nucleated RBC 0.00 (0.00-0.00) K/mm3 Nucleated RBC % 0.0 (0-0.0) % Sodium Pending Potassium Pending Chloride Pending Carbon Dioxide Pending Anion Gap Pending BUN Pending Creatinine Pending Estim Creat Clear Calc Pending Estimated GFR Pending Glucose Pending Calculated Osmolality Pending Lactic Acid Pending Calcium Pending Total Bilirubin Pending AST Pending ALT Pending Alkaline Phosphatase Pending Total Protein Pending Albumin Pending Urine Color Brown A (Yellow) Urine Appearance Clear (Clear) Urine pH 6.5 (5.0-8.0) Ur Specific [place] 1.020 (1.010-1.020) Urine Protein 3+ H (Negative) Urine Glucose (UA) 3+ H (Negative) Urine Ketones Trace H (Negative) Ur Blood (Man) 3+ H (Negative) Urine Nitrate Positive H (Negative) Urine Bilirubin Negative (Negative) Urine Urobilinogen 1.0 (0.2-1.0) mg/dL Leukocyte Esterase Rfl Trace H (Negative) SERAFIN/UL Urine RBC >75 H (0-2) /hpf Urine WBC >75 H (0-3) /hpf Ur Squamous Epith Cells None seen (Few) /hpf Urine Bacteria 2+ H (None) /hpf Critical Care Time Critical Care Time Critical Care Time: No Discharge Plan Discharge Clinical Impression: Decubitus ulcer, Diabetes mellitus, UTI (urinary tract infection), Acute CVA (cerebrovascular accident) Patient Disposition: Acute Care Hospital Condition: Guarded Prognosis Patient Language: Egyptian Prescriptions: No Action acetaminophen 325 mg capsule 650 mg PO Q4-6H PRN (Reason: pain) insulin lispro [Humalog U-100 Insulin] 100 unit/mL solution 1 sliding scale dose subcut USEASDIRECTD amlodipine 10 mg tablet 10 mg PO DAILY aspirin [Jeremías Chewable Aspirin] 81 mg tablet,chewable 81 mg PO DAILY atorvastatin [Lipitor] 40 mg tablet 40 mg PO HS insulin glargine [Lantus Solostar U-100 Insulin] 100 unit/mL (3 mL) insulin pen 10 unit subcut DAILY clopidogrel 75 mg tablet 75 mg PO DAILY gabapentin 300 mg capsule 300 mg PO BID lisinopril 20 mg tablet 20 mg PO BID DAILY VITAMIN FORMULA-MINERALS Tablet 1 tablet PO DAILY nicotine 14 mg/24 hr patch 24 hour 1 patch transdermal DAILY sennosides-docusate sodium 8.6-50 mg tablet 1 tab-cap PO BID PRN (Reason: constipation) tramadol 50 mg tablet 50 mg PO Q6-8H PRN (Reason: pain) Follow-up/Referrals: Linwood Leonard DO [Primary Care Provider] - "
--- OUTSIDE RECORDS SUMMARY | 2024-12-04 13:23 | XMS_ITS | Encounter Summary ---
Author Organization [facility] Address [address] [place] [address] Phone Care Team Providers Care Lathe Turner Name Role Phone Leana Shi MD Primary Care Provider [phone] Damon Floyd MD Unavailable [phone] [facility] Un[facility] Magdy Navarrete MD Unavailable [phone] Encounter Details Date Type Department Care Team (Late st Contact Info) Description 05/20/2020 Orders Only [facility] [address] [place] [address] Scanning, Provider Social History Tobacco [...] on file Legal Sex Female 8:12 AM 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 Gender Identity Not on file Sexual Orientation Not on file 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
--- OUTSIDE RECORDS SUMMARY | 2024-12-04 13:23 | XMS_ITS | Encounter Summary ---
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 Gender Identity Not on file Sexual Orientation Not on file 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 Not on file Not on file Not on fi le documented as of this encounter Plan of Treatment Not on file documented as of this encounter Visit Diagnoses Not on filedocumented in this encounter Care Teams Line Production Cook Relationship Specialty Start Date End Date Leana Shi MD PCP - General 10/22/16 Damon Floyd MD [address] [facility] [place] [address] Consulting Physician Neurology 07/14/18 Tom Tafoya Si, MD [address] [place] [address] Consulting Physician Neurology 06/07/24 Magdy Navarrete MD [address] [place] [address] Referring Physician Neurology 11/26/24 documented as of this encounter
--- OUTSIDE RECORDS SUMMARY | 2024-12-04 13:23 | XMS_ITS | Encounter Summary ---
Author Organization [facility] Healthcare Address [address] [place] [address] Care Team Providers Care Property Management Intern Name Role Phone Leana Shi MD Primary Care Provider + [phone] Damon Floyd MD Unavailable [phone] Tom Tafoya Si, MD Unavailable Magdy Navarrete MD Unavailable [phone] Encounter Details Date Type Department Care Team (Late st Contact Info) Description 11/09/2024 Telephone [facility] [address] [place] [address] Leana Shi MD [address] [place] [address] Social History Tobacco Use Types Packs/Day Years [...] on file Legal Sex Female 8:12 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 Left message with [facility] to get fax number. * Telephone Encounter - Umm Quiroz RN - 11/09/2024 4:11 PM CDT Yes ok for the mammogram * Telephone Encounter - Aurora Denise - 11/09/2024 3:52 PM CDT Patient called stating that she was notified that she is due for her mammogram. Patient would like to go to the hospital [facility] to her home--[facility]. Okay to put order in? [phone] documented in this encounter Plan of Treatment Not on file documented as of this encounter Visit Diagnoses Diagnosis Breast cancer screening by mammogram- Primary documented in this encounter Care Teams Property Management Intern Relationship Specialty Start Date End Date Leana Shi MD PCP - General 10/22/16 Damon Floyd MD [address] [facility] [address] [place] [address] Consulting Physician Neurology 07/14/18 Tom Tafoya Si, MD [address] [place] [address] Consulting Physician Neurology 06/07/24 Magdy Navarrete MD [address] [place] [address] Referring Physician Neurology 11/26/24 documented as of this encounter
--- OUTSIDE RECORDS SUMMARY | 2024-12-04 13:23 | XMS_ITS | Encounter Summary ---
Author Organization [facility] Address [address] [place] [address] Phone Care Team Providers Care Roller Skates Assembler Name Role Phone Leana Shi MD Primary Care Provider [phone] Damon Floyd MD Unavailable [phone] [facility] Un[facility] Magdy Navarrete MD Unavailable [phone] Encounter Details Date Type Department Care Team (Late st Contact Info) Description 05/26/2020 Orders Only [facility] [address] [place] [address] Scanning, Provider Social History Tobacco [...] on file Legal Sex Female 8:12 AM DIRECTOR OF CATH LAB Gender Identity Not on file Sexual Orientation Not on file 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
--- OUTSIDE RECORDS SUMMARY | 2024-12-04 13:23 | XMS_ITS | Clinical Summary ---
Author Organization [facility] Address [address] [place] [address] Care Team Providers Care Can Solderer Name Role Phone Unavailable Primary Care Provider Unavailabl e Social History Tobacco Use Types Packs/Day Years Used Date Smoking Tobacco: Never Assessed Comments Unknown Sex and Gender Information Value Date Recorded Sex Assigned at Not on file Legal Sex Female 5:56 PM TICKET MAKER Gender Identity Not on file Sexual [...]
== END 2024-12-04 13:04 | disposition home or self-care (01) ==
LOC: CHSIMG 13:07
PROVIDERS: PCP Internal Medicine Geriatric Medicine; Visit Provider Internal Medicine Geriatric Medicine
DX: Z12.31 Encounter for screening mammogram for malignant neoplasm of breast (principal); Z78.0 Asymptomatic menopausal state; M85.89 Other specified disorders of bone density and structure, multiple sites
CPT/HCPCS: 77063; 77067; 77080

== ENCOUNTER 2025-03-07 20:07 | Emergency (ER) | payer MEDICARE, SELFPAY ==
--- NOTE | ~2025-03-07 | CT_ITS ---
EXAMINATION: CT abdomen pelvis wo con DATE: 03/07/2025 21:04 INDICATION: left lower abdominal and flank pain TECHNIQUE: Computed tomography (CT) of the abdomen and pelvis was performed without intravenous contr ast. Automated exposure control and iterative reconstruction technique were employed. The dose-length product was 456.46 mGy-cm. COMPARISON: 09/08/2019. FINDINGS: Lower thorax: Left lower lobe scar. Liver: Normal. Biliary/Gallbladder: Mild gallbladder distention without wall thickening or inflammatory change. No s tones detected. No bile duct dilation. Pancreas: No mass or duct dilation. Spleen: Normal. Adrenals:No mass. Kidneys: Mild left hydronephrosis and perinephric stranding. Bilateral parapelvic cysts. Bilateral no nobstructing calculi. No suspicious mass. GI tract: No small or large bowel dilation. Appendix not confidently visualized. Mesentery/Peritoneum: No ascites, mass, or free air. Retroperitoneum: No mass. Atherosclerotic calcifications of intra-abdominal arterial vessels. Pelvis: 3 mm calcification in the distal left ureter just proximal to the UVJ. Normal urinary bladder and uterus and bilateral ovaries. Prominent bilateral gonadal veins and pelvic veins. Soft Tissues: Soft tissues and body wall unremarkable. Bones: No acute osseous finding. IMPRESSION: Mild gallbladder hydrops, without stones, inflammatory changes, or bile duct dilation. This may be se condary to fasting or early/mild obstruction. 3 mm stone in the distal left ureter causing mild obstructive uropathy. Prominent gonadal and pelvic veins, correlate for symptoms of pelvic congestion syndrome. Reviewed, dictated and finalized at location [facility]. IMPRESSION: Mild gallbladder hydrops, without stones, inflammatory changes, or bile duct di lation. This may be secondary to fasting or early/mild obstruction. 3 mm stone in the distal left ureter causing mild obstructive uropathy. Prominent gonadal and pelvic veins, correlate for symptoms of pelvic congestion syndrome.
--- OUTSIDE RECORDS SUMMARY | 2025-03-07 20:08 | XMS_ITS | Encounter Summary ---
Author Organization [facility] Address [address] [place] [address] Phone Care Team Providers Care Communicable Disease Specialist Name Role Phone Leana Shi MD Primary Care Provider [phone] Damon Floyd MD Unavailable [phone] Mattie Khoury Unavailable [phone] [facility] Un[facility] Magdy Navarrete MD Unavailable Encounter Details Date Type Department Care Team (Late st Contact Info) Description 12/08/2017 Orders Only [facility] [address] [place] [address] Leana Shi MD [address] [place] [address] Social History Tobacco Use Types Packs/Day Years Used Date Smoking Tobacco: Never Smokeless Tobacco: Never Alcohol Use Standard Drinks/Week Comments No 0 (1 standard drink = 0.6 oz pur e alcohol) Comments No Sex and Gender Information Value Date Recorded Sex Assigned at Not on file 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 Gender Identity Not on file Sexual Orientation Not on file 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 Not on file Not on file Not [...] on filedocumented in this encounter Care Teams Communicable Disease Specialist Relationship Specialty Start Date End Date Leana Shi MD PCP - General 10/22/16 Damon Floyd MD [address] [facility] [address] [place] [address] Consulting Physician Neurology 07/14/18 Mattie Khoury [address] [place] [address] [address] [place] [address] ACO Care Architect Naval 01/30/19 01/31/19 Tom Tafoya Si, MD [address] [facility] [place] [address] Consulting Physician Neurology 06/07/24 Magdy Navarrete MD [address] [place] [id number] Referring Physician Neurology 11/26/24 documented as of this encounter
--- OUTSIDE RECORDS SUMMARY | 2025-03-07 20:08 | XMS_ITS | Encounter Summary ---
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 Gender Identity Not on file Sexual Orientation Not on file 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 Not on file Not on file Not on fi le documented as of this encounter Plan of Treatment Not on file documented as of this encounter Visit Diagnoses Not on filedocumented in this encounter Care Teams J2Ee Software Engineer Relationship Specialty Start Date End Date Leana Shi MD PCP - General 10/22/16 Damon Floyd MD [address] [facility] [address] [place] [id number] Consulting Physician Neurology 07/14/18 Tom Tafoya Si, MD [address] [facility] [address] [place] [address] Consulting Physician Neurology 06/07/24 Magdy Navarrete MD [address] [place] [address] Referring Physician Neurology 11/26/24 documented as of this encounter
--- OUTSIDE RECORDS SUMMARY | 2025-03-07 20:08 | XMS_ITS | Clinical Summary ---
Author Organization [facility] Address [address] [place] [address] Phone Care Team Providers Care Roving Department Supervisor Name Role Phone Leana Shi MD Primary Care Provider [phone] Magdy Navarrete MD Unavailable [phone] Allergies Active Allergy Reactions Criticality Noted Date [...] 75 MG Tablet Take by mouth. Active VITAMIN D PO Take by mouth. Active Ascorbic Acid (VITAMIN C PO) Take by mouth. Active Encounters Date Type Department Care Team Description 12/14/2024 2:30 PM CDT Office Visit [facility] [address] [place] [address] Magdy Navarrete MD Mild cognitive impairment (Primary Dx) Discharge Disposition: Discharged to home or Selfcare 12/14/2024 Travel from Last 3 Months Social History [...] Sign Reading Time Taken Comments Blood Pressure 124/78 12/14/2024 2:34 PM CDT Pulse 67 09/17/2024 3:33 PM TRAVEL PROFESSIONAL Temperature 36.3 C (97.4 F) 12/14/2024 2:34 PM CDT Respiratory Rate 16 09/17/2024 3:33 PM TRAVEL PROFESSIONAL Oxygen Saturation 100% 12/14/2024 2:34 PM CDT Inhaled Oxygen Concentration - - Weight 70.1 kg (154 lb 8 oz) 12/14/2024 2:34 PM CDT Height 167.6 cm (5' 6) 12/14/2024 2:34 PM CDT Body Mass Index 24.94 12/14/2024 2:34 PM CDT Plan of Treatment Upcoming Encounters Date Type Department Care Team (Late st Contact Info) Description 06/17/2025 1:30 PM TRAVEL PROFESSIONAL Office Visit [facility] [address] [place] [address] Magdy Navarrete MD [address] [place] [address] Health Maintenance Due Date Last Done Comments Hepatitis C Virus (HCV) Screening 1945 Respiratory Syncytial Virus (RSV) Immunization (Adult) (1 - 1-dose 75+ series) 2022 Zoster Immunization (3 of 3) 04/26/2023 03/01/2023, 09/01/2010 DEXA Bone Density 08/04/2023 08/04/2021, 03/14/2020 SARS-COV-2 Immunization ( season) 2024 05/30/2022, 10/22/2021, 05/22/2021, Additional history exists Influenza Immunization (#1) 03/25/2025/03/2024, 07/28/2022, 05/22/2021, Additional history exists TdaP Immunization Completed 04/20/2012 Pneumococcal Immunization (50+ years) Completed 09/22/2023, 08/02/2016, 11/20/2014, Additional history exists Hepatitis B Immunization Aged Out No longer eligible based on patient's age to complete this topic Human Papillomavirus (HPV) Immunization Aged Out No longer eligible based on patient's age to complete this topic Meningococcal Immunization (ACWY) Aged Out No longer eligible based on patient's age to complete this topic Rotavirus Immunization Aged Out No lo nger eligible based on patient's age to complete this topic Insurance [facility] Care Teams Roving Department Supervisor Relationship Specialty Start Date End Date Leana Shi MD [address] [facility] [address] PCP - General Geriatric Medicine 05/16/24 Magdy Navarrete MD [address] [place] [id number] Consulting Physician Neurology 09/17/24
--- OUTSIDE RECORDS SUMMARY | 2025-03-07 20:08 | XMS_ITS | Encounter Summary ---
Author Organization [facility] Address [address] [place] [address] Phone Care Team Providers Care Hose Operator Name Role Phone Leana Shi MD Primary Care Provider + [phone] Damon Floyd MD Unavailable [phone] [facility] Si, MD Unavailable Magdy Navarrete MD Unavailable [phone] Encounter Details Date Type Department Care Team (Late st Contact Info) Description 09/16/2022 Orders Only [facility] [address] [place] [address] Leana Shi MD [address] [place] [address] Social History Tobacco Use Types [...] on file Legal 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 Gender Identity Not on file Sexual Orientation Not on file 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
--- OUTSIDE RECORDS SUMMARY | 2025-03-07 20:09 | XMS_ITS | Clinical Summary ---
Author Organization [facility] [address] Address [address] [place] [address] Phone Care Team Providers Care Lucerne Farmer Name Role Phone Leana Beebe MD Primary Care Provider [phone] Damon Floyd MD Unavailable [phone] [facility] Un[facility] Magdy Navarrete MD Unavailable [phone] Allergies Active Allergy Reactions Criticality Noted Date [...] syndrome Medications polyethylene glycol (MIRALAX) 17 gram/dose powderIndication s:Chronic constipation Take 17 g by mouth nightly In chamomile tea 8-10 oz 850 g 11 3 Active estradioL (ESTRACE) 0.01 % (0.1 mg/gram) vaginal creamIndications :Recurrent UTI Insert 2 g into the vagina nightly Apply to vagina nightly 42.5 g 11 4 Active Additional Information Patient not taking.Reported on 11/26/2024 ciprofloxacin (CIPRO) 500 mg tabletIndication s:Recurrent UTI Take 1 tablet (500 mg total) by mouth 2 (two) times a day X 7 days 5 Active carbamide peroxide (DEBROX) 6.5 % otic solutionIndicati ons:Impacted Cerumen Administer 5 drops into each ear as needed for ear pain (tuesday right ear, tuesday left ear) 30 mL 1 5 11/27/19 26 Active Active Problems Problem Noted Date Diagnosed Date [...] Assessment & Plan (08/23/2024 12:37 PM HEAD GOLF COACH): Chronic, found on recent mobile telemetry monitoring and workup for dizziness. Heart rate regular upon auscultation without murmur today. She has been seen by cardiology for this issue and had a normal ECHO at [facility] with Dr. hopper. No further intervention at this time. Will continue to monitor. Assessment & Plan (07/31/2024 9:09 PM HEAD GOLF COACH): Chronic, found on recent mobile telemetry monitoring and workup for dizziness. Heart rate regular upon auscultation without murmur today. She has been referred to Cardiology but has yet to set up an appointment-encouraged her to do this latosha as she can not complete a stress test at this time. Memory loss or impairment 04/09/2024 Assessment & Plan (07/31/2024 9:04 PM HEAD GOLF COACH): Chronic, worsening in the last 3 months. [...] shift. 3. Chronic microvascular ischemic type white-matter changes.. PMH of carotid stenosis, no bruit-will repeat [...] shift. 3. Chronic microvascular ischemic type white-matter changes.. PMH of carotid stenosis, no bruit-will repeat [...] Assessment & Plan (07/31/2024 8:52 PM HEAD GOLF COACH): Chronic, controlled without medications at this time. [...] referral to Physical Therapy for balance re-training. Iar Toussaint Assessment & Plan (08/23/2024 12:33 PM HEAD GOLF COACH): Dizziness Intermittent dizziness has worsened over the past few weeks. Audiological testing and MRI results are normal. Thyroid levels are slightly high but not concerning. Refer back to neurology for further evaluation and order vestibular physical therapy. Assessment & Plan (07/31/2024 9:07 PM HEAD GOLF COACH): Acute, intermittent, mostly when sitting to standing [...] other acute changes. Advised to avoid any evxx-kld-sdnisjw medicines at this time. Push fluids. Follow [...] Assessment & Plan (08/29/2019 12:25 PM HEAD GOLF COACH): Continue on the special kidney diet that [...] bathtub. Admits they did a CXR at [facility] that showed bruisied rib.- no records. Tenderness as noted above. OTC [...] fit as noted above. Was seen in [facility] after fall-no records. No acute findings [...] Assessment & Plan (07/31/2024 9:08 PM HEAD GOLF COACH): Chronic, controlled. Carotid Dopplers from 03/2024 unremarkable. [...] (02/07/2019): Added automatically from request for surgery [id number] Assessment & Plan (08/29/2019 12:26 PM HEAD GOLF COACH): Weight remains stable, and she reports a good appetite. Nausea 02/07/2019 02/29/2020 Overview (02/07/2019): Added automatically from request for surgery [id number] Bilateral occipital neuralgia 02/02/2019 02/29/2020 Hypothyroidism, adult 12/22/20182019 Assessment & Plan (08/29/2019 12:23 PM HEAD GOLF COACH): TSH today is a little high at [...] Assessment & Plan (09/01/2019 10:16 AM HEAD GOLF COACH): Check follow up lipid panel for review with Dr. Tejal Beebe at annual. Influenza 09/06/2014 02/29/2020 Overview (10/29/2016): Influenza Cough 09/06/2014 02/29/2020 Overview (10/29/2016): Cough Trochanteric bursitis 12/08/20132019 Overview (10/29/2016): Trochanteric bursitis of both hips Hot flashes due to menopause 11/22/2012 02/29/2020 Overview (10/27/2016): Menopausal syndrome (hot flashes) Encounters Date Type Department Care Team Description 12/16/2024 Results Follow-Up [facility] [address] [phone] Leana Beebe MD Stool DNA - Cologuard from Last 3 Months Immunizations Immunization Administration [...] 07/25/2020 - 08/24/2020 Bilateral Bilateral cataract [facility] successful surgery Medical History Medical History Date [...] drink = 0.6 oz pur e alcohol) [facility] Utilities Answer Date Recorded In the past 12 months has th e [employer], gas, oil, or water company threatened to shut off services in your [...] any time in the past 12 [facility], were you homeless or living in a intermediate (including now)? 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 on file Not on file Not [...] 9:37 AM CDT Height 171.5 cm (5' 7.5) 11/26/2024 9:37 AM CDT Body Mass Index [...] 05/30/2022, 10/22/2021, Additional history exists Influenza Vaccine (#1) 2025, 07/28/2022, 05/22/2021, Additional history exists Depression Screening 11/26/2025 11/26/2024, 09/22/2023, 09/22/2023, Additional history exists Fall Risk Assessment 11/26/2025 11/26/2024, 09/22/2023, 04/09/2022, Additional history exists Well Visit 65+ 11/26/2025 11/26/2024, 08/26, 04/09/2022, Additional history exists Hepatitis C Screening Completed 08/02/2016 Colon Cancer Screening-CT Colonography Discontinued 03/28/2020 Colon Cancer Screening-Colonoscopy Discontinued 03/28/2020 Colon Cancer Screening-Sigmoidoscopy Discontinued 03/28/2020 Pneumococcal vaccine 65+ Completed 024, 08/02/2016, 11/20/2014, Additional history exists Breast Cancer Screening-Mammogram Discontinued 11/01/2023, 10/26/2022, 08/04/2021, Additional history exists Colon Cancer Screening-DNA Stool Discontinued 12/07/19 25, 03/28/2020 Colon Cancer Screening-FIT Discontinued 12/06/2024, Colon Cancer Screening-FOBT Discontinued 12/06/2024, 0 03/28/2020 Colorectal Cancer Screening Discontinued Procedures Procedure Name Priority Date/Time Associated Diagnosis Comments STOOL DNA COLOGUARD Routine 12/06/2024 1:00 AM CDT Colon cancer screening SCREENING MAMMOGRAM BILATERAL W SAV Schedule Routine, Read Routine (OP Routine) 11/01/2023 10:42 AM CDT Breast cancer screening by mammogram DEXA AXIAL SKELETON BONE DENSITY 1 OR MORE SITES Schedule Routine, Read Routine (OP Routine) 08/04/2021 10:13 AM HEAD GOLF COACH Menopause COLONOSCOPY 03/28/2020 8:49 AM CDT HEPATITIS C ANTIBODY Routine 08/02/2016 10:03 AM HEAD GOLF COACH from Last 3 Months or Most Recently Relevant to Health Maintenance Results * Stool DNA - Cologuard (12/06/2024 1:00 AM CDT) Pathologist [facility] Stool DNA - Cologuard Negative Negative [employer] (CLIA #:[id number]) Comment: The Cologuard (TM) test was performed on this specimen. NEGATIVE TEST RESULT. A negative Cologuard result indicates a low likelihood that a colorectal cancer (CRC) or advanced adenoma (adenomatous polyps with more advanced pre-malignant features) is present. The chance that a person with a negative Cologuard test has a colorectal cancer is less than 1 in 1500 (negative predictive value >99.9%) or has an advanced adenoma is less than 5.3% (negative predictive value 94.7%). These data are based on a prospective cross-sectional study of 10,000 individuals at average risk for colorectal cancer who were screened with both Cologuard and colonoscopy. (Venu Muñoz, N Engl J Med 2014;370(14):1286- 1297) The normal value (reference range) for this assay is negative. COLOGUARD RE-SCREENING RECOMMENDATION: Periodic colorectal cancer screening is an important part of preventive healthcare for asymptomatic individuals at average risk for colorectal cancer. Following a negative Cologuard result, the [place] Cancer Society and U.S. Multi-Society Task Force screening guidelines recommend a Cologuard re-screening interval of 3 years. References: [place] Cancer Society Guideline for Colorectal Cancer Screening: https://www.cancer.org/cancer/pprzq-rtoqqu-devufo/srfeoujdg-ltcomfhiq-ivbajto/ac s-rec ommendations.html.; oDnnell DK, Juliocesar CR, Aranza ZhangK, Colorectal Cancer Screening: Recommendations for Physicians and Patients from the U.S. Multi-Society Task Force on Colorectal Cancer Screening , Am J Gastroenterology 2017; 112:7508-8385. TEST DESCRIPTION: Composite algorithmic analysis of stool DNA-biomarkers with hemoglobin immunoassay. Quantitative values of individual biomarkers are not reportable and are not associated with individual biomarker result reference ranges. Cologuard is intended for colorectal cancer screening of adults of either sex, 45 years or older, who are at average-risk for colorectal cancer (CRC). Cologuard has been approved for use by the U.S. FDA. The performance of Cologuard was established in a cross sectional study of average-risk adults aged 50-84. Cologuard performance in patients ages 45 to 49 years was estimated by sub-group analysis of near-age groups. Colonoscopies performed for a positive result may find as the most clinically significant lesion: colorectal cancer [4.0%], advanced adenoma (including sessile serrated polyps greater than or equal to 1cm diameter) [20%] or non- advanced adenoma [31%]; or no colorectal neoplasia [45%]. These estimates are derived from a prospective cross-sectional screening study of 10,000 individuals at average risk for colorectal cancer who were screened with both Cologuard and colonoscopy. (Imperiale T. et al, N Engl J Med 2014;370(14):5227-7789.) Cologuard may produce a false negative or false positive result (no colorectal cancer or precancerous polyp present at colonoscopy follow up). A negative Cologuard test result does not guarantee the absence of CRC or advanced adenoma (pre-cancer). The current Cologuard screening interval is every 3 years. ([place] Cancer Society and U.S. Multi-Society Task Force). Cologuard performance data in a 10,000 patient pivotal study using colonoscopy as the reference method can be accessed at the following location: www.[employer].com/results. Additional description of the Cologuard test process, warnings and precautions can be found at www.cologuard.com. Stool 12/06/2024 1:00 AM CDT 12/08/2024 11:22 AM CDT us Leana Beebe MD LAB BODY FLUIDS AND STOOLS ORDERABLES Final Result [facility] (CLIA #:[id number]) [address] [place] [address] * Screening Mammogram Bilateral W Sav (11/01/2023 [...] or 2 Site (08/04/2021 10:13 AM HEAD GOLF COACH) Anatomical Region Laterality Modality Body N/A Other 08/04/2021 11:3 1 AM HEAD GOLF COACH Narrative 08/04/2021 11:33 AM HEAD GOLF COACH EXAM DESCRIPTION: DEXA AXIAL SKELETON BONE DENSITY 1 OR MORE SITES REASON FOR STUDY: 76 y/o year old F with given history of screening. 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 MF: JOSEFINA Report ID: [id number] Reading Location: [place] [address] Procedure Note Damon Larose MD - 08/04/2021 EXAM DESCRIPTION: DEXA AXIAL SKELETON BONE DENSITY 1 OR MORE SITES REASON FOR STUDY: 76 y/o year old F with given history ofscreening. 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 MF: JOSEFINA Report ID: [id number] Reading Location: [place] [address] Leana Beebe MD IM DXA PROCEDURES Final R esult * COLONOSCOPY (03/28/2020 8:49 AM CDT) Anatomical Region Laterality Modality Other Narrative Procedure Note Paula Black MD - 03/28/2020 8:49 AM CDT [facility] Patient Name: Sofia Magana Procedure Date: 03/28/2020 8:49 AM Date of : 1945 Admit Type: Outpatient Age: 75 Gender: Female Attending MD: Paula Black M.D. Room: [facility] ENDOSCOPY ROOM 1 Note Status: Finalized [...] passed under direct vision. The PediatricColonoscope PCF-H190L [id number] was introduced through the anusand advanced to [...] 8:49 AM Procedure Code(s): --- Professional --- 75462, Colonoscopy, flexible; with biopsy, single or multiple Diagnosis Code(s): --- Professional --- Z12.11, Encounter for screening for malignant neoplasm of colon K64.8, Other hemorrhoids D12.3, Benign neoplasm of transverse colon (hepatic flexure orsplenic flexure) CPT copyright 2017 [place] [employer]. All rights reserved. The codes documented in this report are preliminary and upon principal cyber engineer reviewmay be revised to meet current compliance requirements. Recognized by the [place] Society for Gastrointestinal Endoscopy for promoting quality in endoscopy Paula Black MD ENDOSCOPY PROCEDURES Final Result * Hepatitis C antibody (08/02/2016 10:03 AM HEAD GOLF COACH) SIGNAL TO CUT-OFF 0.03 <1.00 [facility] RES[facility] Comment: REPORT COMMENT: FASTING:UNKNOWN Test performed at [facility] [place] [id number] [address] [address] Director: LEONARD CUENCA DO,MPH Hep C Ab NON-REACT LEYLA NON-REACT LEYLA [facility]ISTORICAL RESULTS 08/02/2016 10:0 3 AM HEAD GOLF COACH Leana Beebe MD LAB MICROBIOLOGY - GENERAL ORDERABLES Final Result [facility]ISTORICAL RESULTS from Last 3 Months or Most Recently Relevant to Health Maintenance Insurance MEDICARE COMMERCIAL GENERIC COMMERCIAL GENERIC MEDICARE [employer] SENIOR SUPPLEMENT [address] MEDICARE ADVANTAGE MEDICARE [facility] MEDICARE ADVANTAGE AET[employer] SENIOR SUPPLEMENT Advance Directives For more information, please contact: [phone] Documents on File Type Date Recorded Patient Blade Changer Expl anation ADVANCE DIRECTIVE 12/21/2018 3:19 PM [...] 9:52 AM 02/12/2019 9:52 AM Care Teams Lucerne Farmer Relationship Specialty Start Date End Date Leana Beebe MD PCP - General 10/22/16 Damon Floyd MD [address] [facility] [address] [place] [address] Consulting Physician Neurology 07/14/18 [facility] [address] [facility] [address] [place] [address] Consulting Physician Neurology 06/07/24 Magdy Navarrete MD [address] [place] [address] Referring Physician Neurology 11/26/24
--- OUTSIDE RECORDS SUMMARY | 2025-03-07 20:09 | XMS_ITS | Encounter Summary ---
Author Organization [facility] Address [address] [place] [address] Phone Care Team Providers Care Trimmer Tailer Name Role Phone Leana Shi MD Primary Care Provider [phone] Damon Floyd MD Unavailable [phone] [facility] Un[facility] Magdy Navarrete MD Unavailable [phone] Encounter Details Date Type Department Care Team (Late st Contact Info) Description 05/20/2020 Orders Only [facility] [address] [place] [address] Scanning, Provider Social History Tobacco [...] on file Legal Sex Female 8:12 AM CONFERENCE DIRECTOR Gender Identity Not on file Sexual Orientation Not on file 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 [address] [place] [address] Consulting Physician Neurology 07/14/18 [facility] [address] [facility] [address] [place] [address] Consulting Physician Neurology 06/07/24 Madgy Navarrete MD 2 [place] [phone] Referring Physician Neurology 11/26/24 documented as of this encounter
--- OUTSIDE RECORDS SUMMARY | 2025-03-07 20:09 | XMS_ITS | Encounter Summary ---
Author Organization [facility] Address [address] [place] [address] Phone Care Team Providers Care Chemical Laboratory Assistant Name Role Phone Leana Shi MD Primary Care Provider [phone] Damon Floyd MD Unavailable [phone] [facility] Un[facility] Magdy Navarrete MD Unavailable [phone] Encounter Details Date Type Department Care Team (Late st Contact Info) Description 05/26/2020 Orders Only [facility] [address] [place] [address] Scanning, Provider Social History Tobacco [...] on file Legal Sex Female 8:12 AM SOCIAL SCIENCE ANALYST Gender Identity Not on file Sexual Orientation Not on file 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
--- OUTSIDE RECORDS SUMMARY | 2025-03-07 20:09 | XMS_ITS | Clinical Summary ---
Author Organization [facility] Address [address] [place] [address] Care Team Providers Care Director Cardiovascular Name Role Phone Unavailable Primary Care Provider Unavailabl e Social History Tobacco Use Types Packs/Day Years Used Date Smoking Tobacco: Never Assessed Comments Unknown Sex and Gender Information Value Date Recorded Sex Assigned at Not on file Legal Sex Female 5:56 PM GERIATRICIAN Gender Identity Not on file Sexual Orientation [...]
--- OUTSIDE RECORDS SUMMARY | 2025-03-07 20:09 | XMS_ITS | Encounter Summary ---
Author Organization [facility] Address [address] [place] [address] Phone Care Team Providers Care Stucco Plasterer Name Role Phone Leana Shi MD Primary Care Provider [phone] Damon Floyd MD Unavailable [phone] [facility] Un[facility] Magdy Navarrete MD Unavailable [phone] Encounter Details Date Type Department Care Team (Late st Contact Info) Description 06/09/2020 Orders Only [facility] [address] [employer] [address] Scanning, Provider Social History Tobacco [...] on file Legal Sex Female 8:12 AM SOLE EDGE INKER MACHINE Gender Identity Not on file Sexual Orientation Not on file 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
--- OUTSIDE RECORDS SUMMARY | 2025-03-07 20:09 | XMS_ITS | Encounter Summary ---
Author Organization [facility] Address [address] [place] [address] Care Team Providers Care Guest Room Attendant Name Role Phone Leana Shi MD Primary Care Provider + [phone] Damon Floyd MD Unavailable [phone] Tom Tafoya Si, MD Unavailable Magdy Navarrete MD Unavailable [phone] Encounter Details Date Type Department Care Team (Late st Contact Info) Description 08/03/2021 Telephone [facility] [address] [place] [address] Brittni Fitch, RT Social History Tobacco Use [...] on file Legal Sex Female 8:12 AM POLYTECHNIC TEACHER Gender Identity Not on file Sexual Orientation Not on file 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 Not on file Not on file Not on fi le documented as of this encounter Plan of Treatment Not on file documented as of this encounter Visit Diagnoses Not on filedocumented in this encounter Care Teams Guest Room Attendant Relationship Specialty Start Date End Date Leana Shi MD PCP - General 10/22/16 Damon Floyd MD [address] [facility] [address] [place] [id number] Consulting Physician Neurology 07/14/18 Tom Tafoya Si, MD [address] [facility] [address] [place] [address] Consulting Physician Neurology 06/07/24 Magdy Navarrete MD [address] [place] [address] Referring Physician Neurology 11/26/24 documented as of this encounter
[2025-03-07 20:19] VITALS: BP 138/87; PULSE 83; RESP 31; TEMP 37; O2SAT 100
[2025-03-07 20:24] VITALS: PULSE 80
--- NOTE | 2025-03-07 20:24 | ECG_ITS ---
Test Date: 2025-03-07 20:37:08 Measurements Intervals [place] Rate: 81 P: 74 CA: 175 QRS: 17 QRSD: 94 T: 23 QT: 416 QTc: 485 Interpretive Statements SINUS RHYTHM POSSIBLE LEFT ATRIAL ENLARGEMENT CANNOT R/O SEPTAL INFARCT, AGE INDETERMINATE BORDERLINE ST-T WAVE ABNORMALITY- INF/LAT LEADS BASELINE ARTIFACT- II, III, AVL, AVF, V1, V5 ABNORMAL ECG Compared to ECG 01/27/2024 18:32:34 No significant changes Electronically Signed On 03-08-2025 06:31:58 CDT by Jovanny Greer D.O.
[2025-03-07 20:30] LABS: Hematocrit 42.3 % (35.0-42.0); Hemoglobin 14.2 g/dL (11.7-13.8); Immature Granulocyte Percent A 0.4 % (0.0-0.0); Lymphocytes Absolute Auto 2.40 K/mm3 (1.10-4.50); Mean Corpuscular HGB Conc 33.6 g/dL (32-36); Mean Corpuscular Hemoglobin 32.8 pg (27.0-31.0); Mean Corpuscular Volume 97.7 fL (78.0-102.0); Nucleated Red Blood Cells Absolute Auto 0.00 K/mm3 (0.00-0.00); Nucleated Red Blood Cells Perc 0.0 % (0-0.0); Platelet Count Result 183 K/mm3 (150-420); Red Blood Count 4.33 M/mm3 (4.20-5.40); White Blood Count 7.5 K/mm3 (4.8-10.8)
[2025-03-07] MEDS: KETOROLAC 30 MG/ML VIAL (*BKC) IV PUSH (20:32)
[2025-03-07] MEDS: ONDANSETRON INJ 4 MG/2 ML VIAL IV PUSH (20:32)
[2025-03-07] MEDS: SODIUM CHLORIDE 0.9% IV 1,000 ML 999 ML IV CONT (20:33)
[2025-03-07 20:37] LABS: Alanine Aminotransferase 31 U/L (6-35); Albumin Level 4.8 g/dL (3.5-5.1); Alkaline Phosphatase 83 U/L (38-126); Anion Gap 12 mmol/L (4-12); Aspartate Amino Transferase 41 U/L (14-36); Bilirubin,Total 1.3 mg/dL (0.2-1.3); Blood Urea Nitrogen 26 mg/dL (7-17); Calcium 10.3 mg/dL (8.4-10.2); Carbon Dioxide 21 mmol/L (22-30); Chloride 106 mmol/L (98-107); Estimated CRCL calculation 44 ml/min; Estimated Glomerular Filt Rate > 60; Glucose 162 mg/dL (65-110); Lipase 63 U/L (23-300); Osmolality Calculated 296 mOsm/kg (285-295); Potassium 3.6 mmol/L (3.4-5.0); Sodium 139 mmol/L (137-145); Total Protein 7.6 g/dL (6.3-8.2)
[2025-03-07 20:38] LABS: INR 1.0; Partial Thromboplastin Time 26.8 Sec (23.9-30.70); Prothrombin Time 11.2 Seconds (9.50-12.1)
[2025-03-07 20:48] LABS: Troponin I < 0.012 ng/mL (0.000-0.034)
--- OUTSIDE RECORDS SUMMARY | 2025-03-07 20:49 | XMS_ITS | Clinical Summary ---
Author Organization [facility] Address [address] [place] [address] Phone Care Team Providers Care Access Developer Name Role Phone Leana Shi MD Primary Care Provider [phone] Magdy Navarrete MD Unavailable [phone] Allergies Active Allergy Reactions Criticality Noted Date [...] Description 12/14/2024 2:30 PM CDT Office Visit [facility] [address] [place] [address] Magdy Navarrete MD Mild cognitive [...] PM CDT Pulse 67 09/17/2024 3:33 PM CRIMINAL JUSTICE PROGRAM DIRECTOR Temperature 36.3 C (97.4 F) 12/14/2024 2:34 PM CDT Respiratory Rate 16 09/17/2024 3:33 PM CRIMINAL JUSTICE PROGRAM DIRECTOR Oxygen Saturation 100% 12/14/2024 2:34 PM CDT Inhaled Oxygen Concentration - - Weight 70.1 kg (154 lb 8 oz) 12/14/2024 2:34 PM CDT Height 167.6 cm (5' 6) 12/14/2024 2:34 PM CDT Body Mass Index 24.94 12/14/2024 2:34 PM CDT Plan of Treatment Upcoming Encounters Date Type Department Care Team (Late st Contact Info) Description 06/17/2025 1:30 PM CRIMINAL JUSTICE PROGRAM DIRECTOR Office Visit [facility] [address] [place] [address] Magdy Navarrete MD [address] [place] [address] Health Maintenance Due Date Last Done Comments [...] to complete this topic Insurance [facility]IC[facility] Care Teams Access Developer Relationship Specialty Start Date End Date Leana Shi MD [address] [place] [address] PCP - General Geriatric Medicine 05/16/24 Magdy Navarrete MD [address] [place] [address] Consulting Physician Neurology 09/17/24
--- OUTSIDE RECORDS SUMMARY | 2025-03-07 20:49 | XMS_ITS | Encounter Summary ---
Author Organization [facility] Address [address] [place] [address] Phone Care Team Providers Care Embroidery Specialist Name Role Phone Leana Shi MD Primary Care Provider [phone] Damon Floyd MD Unavailable [phone] [facility] Si, MD Unavailable Magdy Navarrete MD Unavailable [phone] Encounter Details Date Type Department Care Team (Late st Contact Info) Description 06/09/2020 Orders Only [facility] [address] [place] [address] Scanning, Provider Social History Tobacco [...] on file Legal Sex Female 8:12 AM WOOL WASHER FEEDER Gender Identity Not on file Sexual Orientation Not on file 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
--- OUTSIDE RECORDS SUMMARY | 2025-03-07 20:49 | XMS_ITS | Clinical Summary ---
Author Organization [facility] Address [address] [place] [address] Care Team Providers Care Felt Coverer Name Role Phone Unavailable Primary Care Provider Unavailabl e Social History Tobacco Use Types Packs/Day Years Used Date Smoking Tobacco: Never Assessed Comments Unknown Sex and Gender Information Value Date Recorded Sex Assigned at Not on file Legal Sex Female 5:56 PM STATION WORKER Gender Identity Not on file Sexual Orientation [...]
--- OUTSIDE RECORDS SUMMARY | 2025-03-07 20:49 | XMS_ITS | Encounter Summary ---
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
--- OUTSIDE RECORDS SUMMARY | 2025-03-07 20:49 | XMS_ITS | Encounter Summary ---
Author Organization [facility] Address [address] [place] [address] Phone Care Team Providers Care Software Integration Developer Name Role Phone Leana Shi MD Primary Care Provider + [phone] Damon Floyd MD Unavailable [phone] [facility] Un[facility] Magdy Navarrete MD Unavailable [phone] Encounter Details Date Type Department Care Team (Late st Contact Info) Description 09/16/2022 Orders Only [facility] [address] [place] [address] Leana Shi MD [address] [place] [address] Social History Tobacco Use Types [...] on file 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 Gender Identity Not on file Sexual Orientation Not on file 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 Not on file Not on file Not [...] on filedocumented in this encounter Care Teams Software Integration Developer Relationship Specialty Start Date End Date Leana Shi MD PCP - General 10/22/16 Damon Floyd MD [address] [facility] [address] [place] [address] Consulting Physician Neurology 07/14/18 LottieTom bautista Si, MD [address] [facility] [address] [place] [address] Consulting Physician Neurology 06/07/24 Magdy Navarrete MD 2 [place] [address] Referring Physician Neurology 11/26/24 documented as of this encounter
--- OUTSIDE RECORDS SUMMARY | 2025-03-07 20:49 | XMS_ITS | Encounter Summary ---
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 Gender Identity Not on file Sexual Orientation Not on file 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
--- OUTSIDE RECORDS SUMMARY | 2025-03-07 20:49 | XMS_ITS | Clinical Summary ---
Author Organization [facility] [address] Address [address] [place] [address] Phone Care Team Providers Care Chair Upholsterer Name Role Phone Leana Beebe MD Primary Care Provider [phone] Damon Floyd MD Unavailable [phone] [facility] Unavailable Magdy Navarrete MD Unavailable [phone] Allergies Active Allergy Reactions Criticality Noted Date [...] CDT Assessment & Plan (08/23/2024 12:37 PM VIDEO GAME DEVELOPER): Chronic, found on recent mobile telemetry monitoring and workup for dizziness. Heart rate regular upon auscultation without murmur today. She has been seen by cardiology for this issue and had a normal ECHO at [facility] with Dr. hopper. No further intervention at this time. Will continue to monitor. Assessment & Plan (07/31/2024 9:09 PM VIDEO GAME DEVELOPER): Chronic, found on recent mobile telemetry monitoring and workup for dizziness. Heart rate regular upon auscultation without murmur today. She has been referred to Cardiology but has yet to set up an appointment-encouraged her to do this latosha as she can not complete a stress test at this time. Memory loss or impairment 04/09/2024 Assessment & Plan (07/31/2024 9:04 PM VIDEO GAME DEVELOPER): Chronic, worsening in the last 3 months. [...] 11/25/2017 Assessment & Plan (07/31/2024 8:52 PM VIDEO GAME DEVELOPER): Chronic, controlled without medications at this time. [...] Toussaint Assessment & Plan (08/23/2024 12:33 PM VIDEO GAME DEVELOPER): Dizziness Intermittent dizziness has worsened over the past few weeks. Audiological testing and MRI results are normal. Thyroid levels are slightly high but not concerning. Refer back to neurology for further evaluation and order vestibular physical therapy. Assessment & Plan (07/31/2024 9:07 PM VIDEO GAME DEVELOPER): Acute, intermittent, mostly when sitting to standing [...] other acute changes. Advised to avoid any fotn-vks-mgvdfpy medicines at this time. Push fluids. Follow [...] kidney Assessment & Plan (08/29/2019 12:25 PM VIDEO GAME DEVELOPER): Continue on the special kidney diet that [...] bathtub. Admits they did a CXR at [facility] that showed bruisied rib.- no records. Tenderness [...] fit as noted above. Was seen in [facility] after fall-no records. No acute findings on [...] yet. Assessment & Plan (07/31/2024 9:08 PM VIDEO GAME DEVELOPER): Chronic, controlled. Carotid Dopplers from 03/2024 unremarkable. [...] (02/07/2019): Added automatically from request for surgery [id number] Assessment & Plan (08/29/2019 12:26 PM VIDEO GAME DEVELOPER): Weight remains stable, and she reports a good appetite. Nausea 02/07/2019 02/29/2020 Overview (02/07/2019): Added automatically from request for surgery [id number] Bilateral occipital neuralgia 02/02/2019 02/29/2020 Hypothyroidism, adult 12/22/20182019 Assessment & Plan (08/29/2019 12:23 PM VIDEO GAME DEVELOPER): TSH today is a little high at [...] 02/29/2020 Assessment & Plan (09/01/2019 10:16 AM VIDEO GAME DEVELOPER): Check follow up lipid panel for review with Dr. Tejal Beebe at annual. Influenza 09/06/2014 02/29/2020 Overview (10/29/2016): Influenza Cough 09/06/2014 02/29/2020 Overview (10/29/2016): Cough Trochanteric bursitis 12/08/20132019 Overview (10/29/2016): Trochanteric bursitis of both hips Hot flashes due to menopause 11/22/2012 02/29/2020 Overview (10/27/2016): Menopausal syndrome (hot flashes) Encounters Date Type Department Care Team Description 12/16/2024 Results Follow-Up [facility] [address] [phone] Leana Beebe MD Stool DNA - Cologuard [...] - 08/24/2020 Bilateral Bilateral cataract [facility] successful surgery Medical History Medical History [...] drink = 0.6 oz pur e alcohol) [facility] Utilities Answer Date Recorded In the past 12 months has th e [employer], gas, oil, or water company threatened to [...] any time in the past 12 m [facility], were you homeless or living in a care home (including now)? 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 Following a negative Cologuard result, the Finnish Cancer Society and U.S. Multi-Society Task Force screening guidelines recommend a Cologuard re-screening interval of 3 years. References: [place] Cancer Society Guideline for Colorectal Cancer Screening: https://www.cancer.org/cancer/ecnpr-vaoemd-uamlxb/zxxogdfie-nlvwoidve-wceqxxq/ac s-rec ommendations.html.; Donnell DK, Juliocesar CR, Aranza ZhangK, Colorectal Cancer Screening: Recommendations for Physicians and Patients from the U.S. Multi-Society Task Force on Colorectal Cancer Screening , Am J Gastroenterology 2017; 112:4567-3255. TEST DESCRIPTION: Composite algorithmic analysis of stool [...] T. et al, N Engl J Med 2014;370(14):6344-8025.) Cologuard may produce a false negative or false positive result (no colorectal cancer or precancerous polyp present at colonoscopy follow up). A negative Cologuard test result does not guarantee the absence of CRC or advanced adenoma (pre-cancer). The current Cologuard screening interval is every 3 years. (F[place] Cancer Society and U.S. Multi-Society Task Force). Cologuard performance data in a 10,000 patient pivotal study using colonoscopy as the reference method can be accessed at the following location: www.CoScale.com/results. Additional description of the Cologuard test process, warnings and precautions can be found at www.cologuard.com. Stool 12/06/2024 1:00 AM CDT 12/08/2024 11:22 AM CDT us Leana Beebe MD LAB BODY FLUIDS AND STOOLS ORDERABLES Final Result [facility] (CLIA #:[id number]) [address] [place] [address] * Screening Mammogram Bilateral W Sav (11/01/2023 [...] 1 or 2 Site (08/04/2021 10:13 AM VIDEO GAME DEVELOPER) Anatomical Region Laterality Modality Body N/A Other 08/04/2021 11:3 1 AM VIDEO GAME DEVELOPER Narrative 08/04/2021 11:33 AM VIDEO GAME DEVELOPER EXAM DESCRIPTION: DEXA AXIAL SKELETON BONE DENSITY 1 OR MORE SITES REASON FOR STUDY: 76 y/o year old F with given history of screening. Postmenopausal Stranding Machine Operator Helper/Model: Fastacash SL (S/N [id number]) CLINICAL INFORMATION: Current height: 66 inches Maximum [...] Damon Larose M.D. MF: JOSEFINA Report ID: [id number] Reading Location: [place] [address] Procedure Note Damon Larose MD - 08/04/2021 EXAM DESCRIPTION: DEXA AXIAL SKELETON BONE DENSITY 1 OR MORE SITES REASON FOR STUDY: 76 y/o year old F with given history ofscreening. Postmenopausal Stranding Machine Operator Helper/Model: Graphenea Discovery SL (S/N [id number]) CLINICAL INFORMATION: Current height: 66 inches Maximum [...] Damon Larose M.D. MF: JOSEFINA Report ID: [id number] Reading Location: [place] [address] Leana Beebe MD IM DXA PROCEDURES Final R esult * COLONOSCOPY (03/28/2020 8:49 AM CDT) Anatomical Region Laterality Modality Other Narrative Procedure Note Paula Black MD - 03/28/2020 8:49 AM CDT [facility] Patient Name: Sofia Magana Procedure Date: 03/28/2020 8:49 AM Date of : 1945 Admit Type: Outpatient Age: 75 Gender: Female Attending MD: Paula Black M.D. Room: [facility] ENDOSCOPY ROOM 1 Note Status: Finalized [...] passed under direct vision. The PediatricColonoscope PCF-[id number] was introduced through the anusand advanced to [...] 8:49 AM Procedure Code(s): --- Professional --- 24221, Colonoscopy, flexible; with biopsy, single or multiple Diagnosis Code(s): --- Professional --- Z12.11, Encounter for screening for malignant neoplasm of colon K64.8, Other hemorrhoids D12.3, Benign neoplasm of transverse colon (hepatic flexure orsplenic flexure) CPT copyright 2017 Finnish Medical Association. All rights reserved. The codes documented in this report are preliminary and upon production roustabout reviewmay be revised to meet current compliance requirements. Recognized by the [place] Society for Gastrointestinal Endoscopy for promoting quality in endoscopy Paula Black MD ENDOSCOPY PROCEDURES Final Result * Hepatitis C antibody (08/02/2016 10:03 AM VIDEO GAME DEVELOPER) SIGNAL TO CUT-OFF 0.03 <1.00 [facility] Comment: REPORT COMMENT: FASTING:UNKNOWN Test performed at [facility] [address] [address] Director: LEONARD CUENCA DO,MPH Hep C Ab NON-REACT LEYLA NON-REACT LEYLA [facility] RESULTS 08/02/2016 10:0 3 AM VIDEO GAME DEVELOPER Leana Beebe MD LAB MICROBIOLOGY - GENERAL ORDERABLES Final Result [facility] RES[facility] from Last 3 Months or Most Recently Relevant to Health Maintenance Insurance MEDICARE COMMERCIAL GENERIC Member Subscriber Plan / Payer (Ef fective 2017-Present) Name:Sofia Magana Member ID:[id number] Relation to Subscriber:Self Name:Sofia Magana Subscriber ID:[id number] Payer ID:[id number] Group ID:[id number] Type:COMMERCIAL Address: [address] [address] [place] [address] COMMERCIAL GENERIC MEDICARE [employer] SENIOR SUPPLEMENT [address] MEDICARE ADVANTAGE MEDICARE [facility] MEDICARE ADVANTAGE AETNA SENIOR SUPPLEMENT Advance Directives For more information, please contact: [phone] Documents on File Type Date Recorded Patient Cook Apprentice Expl anation ADVANCE DIRECTIVE 12/21/2018 3:19 PM [...] 9:52 AM 02/12/2019 9:52 AM Care Teams Chair Upholsterer Relationship Specialty Start Date End Date Leana Beebe MD PCP - General 10/22/16 Damon Floyd MD [address] [facility] [address] [place] [address] Consulting Physician Neurology 07/14/18 [facility] [address] [facility] [address] [place] [address] Consulting Physician Neurology 06/07/24 Magdy Navarrete MD 2 [place] [address] Referring Physician Neurology 11/26/24
--- OUTSIDE RECORDS SUMMARY | 2025-03-07 20:49 | XMS_ITS | Encounter Summary ---
Author Organization [facility] Address [address] [place] [address] Phone Care Team Providers Care Medical Billing And Coding Specialist Name Role Phone Leana Shi MD Primary Care Provider [phone] Damon Floyd MD Unavailable [phone] Mattie Khoury Unavailable [phone] [facility], MD Unavailable Magdy Navarrete MD Unavailable Encounter Details Date Type Department Care Team (Late st Contact Info) Description 12/08/2017 Orders Only [facility] [address] 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 on file Not on file Not [...] on filedocumented in this encounter Care Teams Medical Billing And Coding Specialist Relationship Specialty Start Date End Date Leana Shi MD PCP - General 10/22/16 aDmon Floyd MD [address] [facility] [address] [place] [address] Consulting Physician Neurology 07/14/18 Mattie Khoury [address] [place] [address] [address] [place] [address] ACO Care Real Estate Assistant 01/30/19 01/31/19 Tom Tafoya Si, MD [address] [facility] [address] [place] [address] Consulting Physician Neurology 06/07/24 Magdy Navarrete MD [address] [place] [address] Referring Physician Neurology 11/26/24 documented as of this encounter
--- OUTSIDE RECORDS SUMMARY | 2025-03-07 20:49 | XMS_ITS | Encounter Summary ---
Author Organization [facility] Healthcare Address [address] [place] [address] Care Team Providers Care Pug Machine Operator Name Role Phone Leana Shi MD Primary Care Provider + [phone] Damon Floyd MD Unavailable [phone] Tom Tafoya Si, MD Unavailable Magdy Navarrete MD Unavailable [phone] Encounter Details Date Type Department Care Team (Late st Contact Info) Description 03/13/2020 Telephone [facility] [address] [place] [address] Natali Baxter, RT Social History Tobacco Use [...] on file Legal Sex Female 8:12 AM IN HOME CAREGIVER Gender Identity Not on file Sexual Orientation Not on file 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 Not on file Not on file Not on fi le documented as of this encounter Plan of Treatment Not on file documented as of this encounter Visit Diagnoses Not on filedocumented in this encounter Care Teams Pug Machine Operator Relationship Specialty Start Date End Date Leana Shi MD PCP - General 10/22/16 Damon Floyd MD [address] [facility] [address] [place] [phone] Consulting Physician Neurology 07/14/18 Tom Tafoya Si, MD [address] [facility] [address] [place] [address] Consulting Physician Neurology 06/07/24 Magdy Navarrete MD [address] [place] [address] Referring Physician Neurology 11/26/24 documented as of this encounter
--- OUTSIDE RECORDS SUMMARY | 2025-03-07 20:49 | XMS_ITS | Encounter Summary ---
Author Organization [facility] Healthcare Address [address] [place] [address] Care Team Providers Care Service Superintendent Name Role Phone Leana Shi MD Primary Care Provider + [phone] Damon Floyd MD Unavailable [phone] Tom Tafoya Si, MD Unavailable Magdy Navarreet MD Unavailable [phone] Encounter Details Date Type Department Care Team (Late st Contact Info) Description 08/03/2021 Telephone [facility] [address] [place] [address] Brittni Fitch, RT Social History Tobacco Use [...] file Legal Sex Female 8:12 AM DIRECTOR REHABILITATION 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 Gender Identity Not on file Sexual Orientation Not on file 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 Not on file Not on file Not on fi le documented as of this encounter Plan of Treatment Not on file documented as of this encounter Visit Diagnoses Not on filedocumented in this encounter Care Teams Service Superintendent Relationship Specialty Start Date End Date Leana Shi MD PCP - General 10/22/16 Damon Floyd MD [address] [facility] [address] [place] [phone] Consulting Physician Neurology 07/14/18 Tom Tafoya Si, MD [address] [facility] [address] [place] [address] Consulting Physician Neurology 06/07/24 Magdy Navarrete MD 2 [place] [address] Referring Physician Neurology 11/26/24 documented as of this encounter
[2025-03-07] MEDS: HYDROmorphone HCL INJ (*CRX) 2 MG/ML VIAL 1 MG IV PUSH (21:09)
--- NOTE | 2025-03-07 21:10 | PC.NURSE ---
Pt back from CT, pt continues to c/o severe pain w/ nausea and feeling dizzy. Fluids continue as ordered, ERP informed of pts pain at 10 and unrelieved w/ Toradol. New orders obtained.
[2025-03-07] MEDS: METOCLOPRAMIDE HCL INJ 10 MG/2 ML VIAL IV PUSH (21:15)
[2025-03-07 21:18] VITALS: BP 132/65; PULSE 84; RESP 20; O2SAT 100
--- NOTE | 2025-03-07 21:35 | ED_ITS ---
HPI - Abdominal Pain General Chief Complaint: Abdominal Pain Stated Complaint: ABDOMINAL PAIN Time Seen by Provider: 03/07/25 20:19 Source: patient and family Mode of arrival: ambulatory Limitations: no limitations History of Present Illness HPI narrative: This is a 80-year-old female who presents with some left lower abdominal and groin pain and left flank pain that started earlier this evening with nausea with no vomiting no fever chills no hematuria or dysuria. Patient has a history of kidney stones. No chest pain or shortness of breath no does have nausea with no episodes of vomiting no diarrhea or constipation. MD elicited complaint: abdominal pain Onset (ago): hour(s) Pain Consistency: intermittent Location: L flank Severity: severe Pain scale (0-10): 10 Quality: aching Radiation: L flank Migration to: L flank Related Data Home Medications ?Medication ?Instructions ?Recorded ?Confirmed ?Last Taken ?Type ciprofloxacin HCl 500 mg tablet 500 mg PO Q12H 5 Unknown History Allergies Allergy/AdvReac Type Severity Reaction Status Date / Time iodine Allergy Severe Anaphylactic Verified 11/15/24 12:43 Shock nortriptyline (From [place]) Allergy Intermediate Abdominal Verified 11/15/24 12:43 Pain Review of Systems 2 Review of Systems: All systems reviewed & are unremarkable except as noted in HPI and below PMFSH Past Medical History Medical History Calculus of kidney Patient denies significant medical history Surgical History Surgical History History of appendectomy Social History Social History Smoking status: Never smoker Gender identity (if verbalized by the patient): Female Exam 2 Const: General: healthy appearing, no acute distress and alert Nutritional Appearance: well nourished Orientation/consciousness: patient oriented x3 Limitations: no limitations Neck: Neck: normal visual inspection, no lymphadenopathy and no meningeal signs Chest: Chest palpation & inspection: normal inspection of the chest Resp: Effort & Inspection: normal respiratory effort Auscultation: clear to auscultation bilaterally Cardio: Rate: regular rate Rhythm: regular rhythm GI: GI Palp: Yes Soft to palpation and Yes Tenderness to palpation present (GI) Auscultation: normal bowel sounds : General: Yes bladder normal to palpation and Yes CVA tenderness Urinary Catheter: Urinary Catheter: patent and draining Back/Spine/Pelvis: Back: CVA tenderness Skin: General skin exam: normal color Rashes: no rashes Neuro: General: patient oriented x3, moves all extremities, no meningeal signs and no focal motor deficits Course Course Emergency Course: Labs performed and reviewed patient and family lactic acid was 3.6 patient did receive a L of normal saline 30mg IV Toradol along with some Zofran and Reglan for nausea, did had Dilaudid 1mg IV patient's pain level was a 10/10 currently down to about a 4/[address] scan performed shows a left 3mm UVJ stone. Vital Signs Vital signs: Vital Signs Temperature 37.0 C 03/07/25 20:19 Pulse Rate 83 03/07/25 20:19 Respiratory Rate 31 H 03/07/25 20:19 Blood Pressure 138/87 03/07/25 20:19 Pulse Oximetry 100 03/07/25 20:19 Oxygen Delivery Room Air 03/07/25 20:19 Temperature 37.0 C 03/07/25 21:54 Pulse Rate 82 03/07/25 21:54 Respiratory Rate 20 03/07/25 21:54 Blood Pressure 136/82 03/07/25 21:54 Pulse Oximetry 94 03/07/25 21:54 Oxygen Delivery Room Air 03/07/25 21:54 MDM - Abdominal Pain Lab Data 03/07/25 20:27 03/07/25 20:27 Labs: Lab Results 03/07/25 03/07/25 Range/Units 20:27 21:28 WBC 7.5 (4.8-10.8) K/mm3 RBC 4.33 (4.20-5.40) M/mm3 Hgb 14.2 H (11.7-13.8) g/dL Hct 42.3 H (35.0-42.0) % MCV 97.7 (78.0-102.0) fL MCH 32.8 H (27.0-31.0) pg MCHC 33.6 (32-36) g/dL RDW 11.7 (11.6-14.4) % Plt Count 183 (150-420) K/mm3 MPV 11.0 (9.2-11.8) fl Immature Gran % (Auto) 0.4 H (0.0-0.0) % Neut % (Auto) 58.2 (50.0-70.0) % Lymph % (Auto) 32.0 (18.0-42.0) % [place] % (Auto) 7.5 (2.0-11.0) % Eos % (Auto) 1.2 (1.0-6.0) % Baso % (Auto) 0.7 (0.0-1.0) % Lymph # (Auto) 2.40 (1.10-4.50) K/mm3 [place] # (Auto) 0.56 (0.10-0.90) K/mm3 Eos # (Auto) 0.09 (0.02-0.50) K/mm3 Baso # (Auto) 0.05 (0.00-0.10) K/mm3 Abs Immat Gran (auto) 0.03 H (0.00-0.00) K/mm3 Absolute Neuts (auto) 4.38 (1.70-7.20) K/mm3 Absolute Nucleated RBC 0.00 (0.00-0.00) K/mm3 Nucleated RBC % 0.0 (0-0.0) % PT 11.2 (9.50-12.1) Seconds INR 1.0 APTT 26.8 (23.9-30.70) Sec Sodium 139 (137-145) mmol/L Potassium 3.6 (3.4-5.0) mmol/L Chloride 106 (98-107) mmol/L Carbon Dioxide 21 L (22-30) mmol/L Anion Gap 12 (4-12) mmol/L BUN 26 H (7-17) mg/dL Creatinine 0.87 (0.7-1.0) mg/dL Estim Creat Clear Calc 44 ml/min Estimated GFR > 60 (59 - ) Glucose 162 H (65-110) mg/dL Calculated Osmolality 296 H (285-295) mOsm/kg Lactic Acid 3.6 H 2.9 H (0.4-2.0) mmol/L Calcium 10.3 H (8.4-10.2) mg/dL Total Bilirubin 1.3 (0.2-1.3) mg/dL AST 41 H (14-36) U/L ALT 31 (6-35) U/L Alkaline Phosphatase 83 (38-126) U/L Troponin I < 0.012 (0.000-0.034) ng/mL Total Protein 7.6 (6.3-8.2) g/dL Albumin 4.8 (3.5-5.1) g/dL Lipase 63 (23-300) U/L Imaging Data Radiologist's impression: ITS Impressions Abdomen/Pelvis CT 03/07/25 21:18 IMPRESSION: Mild gallbladder hydrops, without stones, inflammatory changes, or bile duct dilation. This may be secondary to fasting or early/mild obstruction. 3 mm stone in the distal left ureter causing mild obstructive uropathy. Prominent gonadal and pelvic veins, correlate for symptoms of pelvic congestion syndrome. Critical Care Time Critical Care Time Critical Care Time: No Discharge Plan Discharge Clinical Impression: Urolithiasis Patient Disposition: Home Condition: Stable Instructions: Antibiotic Form, Ureteral Stones (ED) Additional Instructions: advised take medication as prescribed and to follow with primary care physician if symptoms persist or worsen. Patient Language: French Prescriptions: New ondansetron 4 mg tablet,disintegrating 4 mg PO Q6H PRN (Reason: nausea and vomiting) Qty: 10 0RF oxycodone-acetaminophen [Percocet] 5-325 mg tablet 1 tablet PO Q6H PRN (Reason: pain) Qty: 20 0RF tamsulosin [Flomax] 0.4 mg capsule 0.4 mg PO DAILY Qty: 7 0RF No Action ciprofloxacin HCl 500 mg tablet 500 mg PO Q12H Follow-up/Referrals: Yuridia,MD Leana [Primary Care Provider] Time of Disposition: 21:46
[2025-03-07 21:54] VITALS: BP 136/82; PULSE 82; RESP 20; TEMP 37; O2SAT 94
--- NOTE | 2025-03-10 12:27 | PC.NURSE ---
Preliminary blood culture report; no growth in 24 hours.
--- NOTE | 2025-03-12 13:21 | PC.NURSE ---
preliminary blood cultures x2 reviewed. no growth in 48 hours
--- NOTE | 2025-03-15 13:00 | PC.NURSE ---
Final blood culture report; no growth in 5 days.
== END 2025-03-07 21:54 | disposition home or self-care (01) ==
PROVIDERS: Emergency Provider Emergency Medicine; PCP Internal Medicine Geriatric Medicine
DX: N20.1 Calculus of ureter (principal)
CPT/HCPCS: 36415; 74176; 80053; 83605; 83690; 84484; 85025; 85610; 85730; 87040; 93005; 96361; 96374; 96375; 99284; J1171; J1885; J2405; J2765; J7030

== ENCOUNTER 2025-06-05 10:09 | Outpatient (CLI) | payer MEDICARE, SELFPAY ==
--- OUTSIDE RECORDS SUMMARY | 2025-05-30 10:45 | XMS_ITS | Encounter Summary ---
Author Organization [facility] Healthcare Address [address] [place] [address] Care Team Providers Care Vector Control Assistant Name Role Phone Leana Shi MD Primary Care Provider + [phone] Damon Floyd MD Unavailable [phone] Tom Tafoya Si, MD Unavailable Magdy Navarrete MD Unavailable [phone] Reason for Visit * Reason Comments Follow-up Encounter Details Date Type Department Care Team (Late st Contact Info) Description 05/30/2025 10:45 AM BUTTERMAKER HELPER Office Visit [facility] [address] [place] [address] Leana Shi MD [address] [place] [address] Medullary sponge kidney (Primary Dx); Recurrent UTI; Nocturia; Mild late onset Alzheimer's dementia without behavioral disturbance, psychotic disturbance, mood disturbance, or anxiety; Unintentional weight loss of 10% body weight within 6 months; Vestibular disequilibrium involving both inner ears; Immunization counseling; Driving safety issue Social History Tobacco Use Types Packs/Day Years Used Date Smoking Tobacco: Never Smokeless Tobacco: Never Alcohol Use Standard Drinks/Week Comments Yes 0 (1 standard drink = 0.6 oz pur e alcohol) [facility] Utilities Answer Date Recorded In the past 12 months has e [employer], gas, oil, or water company threatened to [...] points, staff should administer the PHQ-9) 0 04/11/2025 Hunger Vital Sign Answer Date Recorded Within [...] any time in the past 12 m [facility], were you homeless or living in a halfway (including now)? 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 Not on file Not on file Not on fi le documented as of this encounter Last Filed Vital Signs Vital Sign Reading Time Taken Comments Blood Pressure 106/60 05/30/2025 11:14 AM BUTTERMAKER HELPER Pulse 65 05/30/2025 11:14 AM BUTTERMAKER HELPER Temperature 36 C (96.8 F) 05/30/2025 11:14 AM BUTTERMAKER HELPER Respiratory Rate 16 05/30/2025 11:14 AM BUTTERMAKER HELPER Oxygen Saturation 97% 05/30/2025 11:14 AM BUTTERMAKER HELPER Inhaled Oxygen Concentration - - Weight 65.3 kg (144 lb) 05/30/2025 11:14 AM BUTTERMAKER HELPER Height 171.5 cm (5' 7.5) 05/30/2025 11:14 AM CS T Body Mass Index 22.22 05/30/2025 11:14 AM BUTTERMAKER HELPER documented in this encounter Functional Status * BP Location Answer Date of Assessment Author Left arm 05/30/2025 11:14 AM BUTTERMAKER HELPER Lori Del Cid MA * BP Location Answer Date of Assessment Author Left arm 05/30/2025 11:14 AM BUTTERMAKER HELPER Lori Del Cid MA documented as of this encounter Patient Instructions * Patient Instructions* Leana Shi MD - 05/30/2025 10:45 AM BUTTERMAKER HELPER ORDERS RELATED TO CARE PROVIDED TODAY 1. Urinalysis with micro and reflex culture diagnosis = medullary sponge kidney recurrent UTI 2. Basic panel today = medication monitor 3. Schedule basic panel three days into her DDAVP trial this will be drawn at [facility] 4. DEXA bone density that has due please schedule diagnosis = menopause Return in about 6 weeks (around 07/11/2025) for Recheck. Nocturia after DDAVP trial, memory after Aricept trial Sofia Magana IMMUNIZATION RECOMMENDATIONS----- Remaining immunizations are due At the pharmacy TODAY or you will have to wait 2 WEEKS until the effects of the high-dose flu shot is complete COVID booster 2024 season Tdap due at pharmacy Shingrix //recommended in all persons over 50// Shingrix is a 2 shot series--the shots should be by at least 6 weeks and up to 6-month High-dose flu shot in the office today Sofia Magana immunization record as of 05/30/25 Immunization History Administered Date(s) Administered Flucelvax Influenza Quad 07/28/2022 Influenza, Quadrivalent, High Dose, Preservative Free, Intrr 05/22/2021, 09/22/2023 Influenza, Split 05/07/2013 Influenza, Trivalent, High Dose, Split, Preservative Free, Intramuscular 05/23/2019, 05/30/2025 Influenza, Trivalent, IM (MDV) 05/13/2014, 07/28/2015 Influenza, Unspecified 07/15/2020, 05/22/2021 Pfizer SARS-CoV-2 Monovalent Vaccination (12+ Yrs) [place]-READY TO USE 10/22/2021 Pfizer SARS-CoV-2 Monovalent Vaccination (12+ Yrs) PURPLE 08/29/2020, 09/19/2020, 05/22/2021 Pfizer Sars-Cov-2 Bivalent Vaccination (12+ YRS) 05/30/2022, 05/31/2022 Pneumococcal Conjugate PCV 13 11/20/2014 Pneumococcal Conjugate Pcv20 09/22/2023 Pneumococcal Polysaccharide PPV23 05/24/2012, 08/02/2016 Tdap 04/20/2012 ZOSTER LIVE 09/01/2010 ZOSTER Recombinant 03/01/2023 ----------------------------> Cut this out and put this on your refrigerator PLANNING FOR possible INFLUENZA INFECTION or COVID INFECTION In advance of illness I recommended Purchase COMBINATION COVID plus INFLUENZA TEST KIT for day # 1 testing AND Purchase COVID TEST KIT for day # 4 testing. Be certain that you have been immunized, full immunization for COVID = 3 total COVID shots Testing and evaluation for COVID if you get a cold = runny nose plus sore throat could be COVID -day 0 = Onset of symptoms = sore throat, runny nose, cough -day 1. = perform a Nasal COVID and influenza test on the morning of day 1 and if POSITIVE call theoffice for medication- [ available ] -if negative test again in 48 hours= on day 4 -day 2. And 3 No testing is done on day 2 or 3 -day 4 = perform a Nasal COVID test on morning of day 4 and if POSITIVE call the office for medication- [ available ] , if negative no further testing as needed. there are medication treatments for COVID Paxlovid is the highly effective antiviral used to treat COVID most patients can use this medicine. If you have chronic kidney disease there are limited options for treatment. We would plan remdesivir infusion daily for 3 days or less effective MOLNUPIRAVIR 800 MG BID X 5D pills should you become ill with COVID-19. This will require transportation to [facility] daily for 3 days to complete your course ofcare PLANNING FOR possible INFLUENZA INFECTIONS Take your yearly flu shot in April, [ We take the flu shot to prevent dying from Influenza = the flu. ] Influenza causes fever and muscle aches. If you have these symptoms you will need to go to the Office or a quick care clinic for testing Antiviral therapy = Tamiflu= is available but needs to be started within the 1st 24-72 hours of symptoms. Please be evaluated immediately if you have these symptoms. For further INTERNET RESEARCH on your MEDICAL CONCERNS: I recommend = www.NLM,NIH.GOV/MEDLINEPLUS = the [employer] library of medicine online This is a consistently reliable site for your personal medical research. Information for the family to monitoring driving FACILITY BASED TOOLS TO HELP WITH DRIVING SAFETY EVALUATION Driving evaluation: To confirmin whether you are safe driving with your memory impairment I recommended an evaluation with independent drivers = @ https://[employer].edu> driving-evaluation @ www[employer] for multiple sites that offer evaluation @ association to drive [facility] (AD[facility]) [phone] ; Some measures to predict unsafe driving include: #1 recent accident, #2 self restricted driving, #3 aggressive or impulsive personality traits, #4 family opinion that you are not safe driving, #5 memory impairment on clinical testing. SELF ASSESSMENT TOOLS FOR YOU AND YOUR FAMILY: Self assessment tool 1.AAA's bookmobile driver's 65+: Check your performance self rating tool search= deepblue.yusef.[facility] / Developed at the [facility] / this is a free self assessment tool with evidence that the work book scores are positively correlated with on road driving scores and several clinical tests of functional ability. Individual feedback is provided based on how the questions are answered. Caregiver tool 2. THE SAFE COOK HELPER PRESERVES SURVEY: search = [employer]afed[employer].org , developed with the [facility] transportation research Leslie. Results correlate positively with on road driving scores and give the user's individualized feedback on how they are driving may be declining and what to do to continue driving safely given these declines. Also gives recommendations for more in- depth assessments Self assessment tool 3. FITNESS TO DRIVE SCREENING MEASURE search=fitnesstodrive.[facility] / Developed at [facility] this is a free web based tool for caregivers of older adults to identify at-risk older bookmobile driver's] resulting in his score of at risk, routine bookmobile driver, or accomplished bookmobile driver with recommendations given his follow-up steps. ERMAKER HELPER ERMAKER HELPER ERMAKER HELPER ERMAKER HELPER ERMAKER HELPER ERMAKER HELPER ERMAKER HELPER ERMAKER HELPER documented in this encounter Ordered Prescriptions Prescription Sig Dispense Quantity Refills Last Filled Start Date End Date donepeziL (ARICEPT) 5 mg tabletIndications: Mild late onset Alzheimer's dementia without behavioral disturbance, psychotic disturbance, mood disturbance, or anxiety Take 1 tablet (5 mg total) by mouth nightly 30 tablet 1 05/30/2025 desmopressin (DDAVP) 0.1 mg tabletIndications: Nocturia Take 2 tablets (0.2 mg total) by mouth nightly 20 tablet 1 05/30/2025 documented in this encounter Progress Notes * Leana Shi MD - 05/30/2025 10:45 AM CST Images from the original note were not included. This patient has verbally consented to recording this visit in order to utilize AI technology in generating this note. Patient ID: Sofia Magana is a 80 y.o. White Non- female. Returns for review of cognitive impairment and dizziness for medication adjustment in his recommendations. HPI AND REVIEW OF SYSTEMS History of Present Illness Sofia Jones is a 80 year old female who presents with memory concerns and frequent nighttime urination. She is accompanied by her daughter and her , Jaret. Cognitive impairment - Ongoing memory deficits, primarily affecting short-term recall such as forgetting the reason for entering a room - Preserved ability to remember details from books - Has not attended scheduled neurologist appointment for further evaluation - Remembers previous test result related to beta amyloid levels Nocturia - Frequent nighttime urination, awakening four times per night - Significant urine volume with each episode - Symptoms persist despite limiting fluid intake after 6 PM - Previous trial of medication did not alleviate nocturia Urinary tract infection symptoms - Suspects urinary tract infection due to dysuria and generalized body aches - History of recurrent urinary tract infections - Typically uses ciprofloxacin for treatment, which she believes is the only effective medication Orthostatic dizziness - Dizziness upon standing - Attributes symptoms to prior traumatic brain injury VITAL SIGNS: BP 106/60 (BP Location: Left arm, Patient Position: Sitting) Pulse 65 Temp 36 ??C (96.8 ??F) (Temporal) Resp 16 Ht 171.5 cm (5' 7.5) Wt 65.3 kg (144 lb) LMP (LMP Unknown) SpO2 97% BMI 22.22 kg/m?? Body mass index is 22.22 kg/m??. Wt Readings from Last 3 Encounters: 05/30/25 65.3 kg (144 lb) 04/11/25 64 kg (141 lb 3.2 oz) 11/26/24 70.7 kg (155 lb 12.8 oz) BP Readings from Last 3 Encounters: 05/30/25 106/60 04/11/25 108/66 11/26/24 112/70 Pulse Readings from Last 3 Encounters: 05/30/25 65 04/11/25 79 11/26/24 75 PHYSICAL EXAMINATION: Physical Exam NEUROLOGICAL: Gait normal. Physical Exam Vitals and nursing note reviewed. Exam conducted with a mine laborer present (Zachary Clarke). Constitutional: General: She is not in acute distress. Appearance: Normal appearance. She is well-developed. Comments: Overall 10 lb weight loss in the past six-month but she did gain 3 in his past 2 months HENT: Head: Normocephalic and atraumatic. Right Ear: Tympanic membrane and external ear normal. Left Ear: Tympanic membrane and external ear normal. Nose: Nose normal. No congestion or rhinorrhea. Mouth/Throat: Mouth: Mucous membranes are moist. Pharynx: Oropharynx is clear. No oropharyngeal exudate or posterior oropharyngeal erythema. Eyes: General: No scleral icterus. Extraocular Movements: Extraocular movements intact. Conjunctiva/sclera: Conjunctivae normal. Pupils: Pupils are equal, round, and reactive to light. Neck: Thyroid: No thyromegaly. Cardiovascular: Rate and Rhythm: Normal rate and regular rhythm. Heart sounds: Normal heart sounds. No murmur heard. No gallop. Pulmonary: Effort: Pulmonary effort is normal. Breath sounds: Normal breath sounds. No wheezing, rhonchi or rales. Abdominal: General: Bowel sounds are normal. There is no distension. Palpations: Abdomen is soft. There is no mass. Tenderness: There is no abdominal tenderness. Hernia: No hernia is present. Musculoskeletal: General: No tenderness or deformity. Normal range of motion. Cervical back: Neck supple. Right lower leg: No edema. Left lower leg: No edema. Lymphadenopathy: Cervical: No cervical adenopathy. Skin: General: Skin is warm and dry. Findings: No erythema, lesion or rash. Neurological: Mental Status: She is alert and oriented to person, place, and time. Mental status is at baseline. Cranial Nerves: No cranial nerve deficit. Motor: No weakness or abnormal muscle tone. Coordination: Coordination normal. Gait: Gait normal. Psychiatric: Mood and Affect: Mood normal. Behavior: Behavior normal. Judgment: Judgment normal. Comments: Able to participate in conversation but not as sharp each usual indefinitely a change in her overall demeanor MEDICATION LIST AT CONCLUSION OF THIS ENCOUNTER: Current Outpatient Medications Medication Instructions carbamide peroxide (DEBROX) 6.5 % otic solution 5 drops, each ear, As needed ciprofloxacin (CIPRO) 500 mg, oral, 2 times daily desmopressin (DDAVP) 0.2 mg, oral, Nightly donepeziL (ARICEPT) 5 mg, oral, Nightly estradioL (ESTRACE) 2 g, vaginal, Nightly, Apply to vagina nightly melatonin 1 mg tablet,disintegrating 1 capsule, Daily ewloyumlpifp-bkgyyhng-vorqxe (Multivitamin 50 Plus) tablet 1 capsule, Daily polyethylene glycol (MIRALAX) 17 g, oral, Nightly, In chamomile tea 8-10 oz ALLERGIES: Allergies Allergen Reactions Iodine Anaphylaxis Cardiac arrest on the operating room table when receiving I did needed IV contrast dye in the 1970s Contrast dye Nortriptyline Other (See comments) and Unknown Dysphagia (patient reports does not remember ever taking this medication) Nitrofurantoin Nausea only Oxybutynin Other (See comments) and Unknown Can not use medications in his class because of severe dry eye syndrome DIAGNOSTIC TESTING RESULTS Results LABS Beta amyloid: 0.158 DIAGNOSTIC EKG: Normal Lab on 04/11/2025 Component Date Value HepBsAg 04/11/2025 Nonreactive HBsAb (immune status) 04/11/2025 Reactive HBsAb (immune status) in* 04/11/2025 3,348.0 Hep B core IgG/IgM 04/11/2025 Nonreactive Color, ur 04/11/2025 Yellow Clarity, ur 04/11/2025 Clear Specific gravity, ur 04/11/2025 1.024 pH, urine 04/11/2025 6.5 Protein, ur ql 04/11/2025 Trace Glucose, ur ql 04/11/2025 Negative Ketones, ur 04/11/2025 Trace Bilirubin, ur 04/11/2025 Negative Blood, ur 04/11/2025 Negative Urobilinogen, ur 04/11/2025 <2.0 Nitrite, ur 04/11/2025 Negative Leukocyte esterase, ur 04/11/2025 1+ (A) UA reflex comment 04/11/2025 Reflex to microscopic UA will be performed. Sodium 04/11/2025 139 Potassium, pl 04/11/2025 4.5 Chloride 04/11/2025 102 CO2 04/11/2025 24 Anion gap 04/11/2025 13 BUN 04/11/2025 23 Creatinine 04/11/2025 0.91 Glucose 04/11/2025 114 Calcium 04/11/2025 9.9 eGFR 04/11/2025 65 WBC, ur 04/11/2025 6-10 (A) RBC, ur 04/11/2025 3-5 (A) Epithelial cells, squamo* 04/11/2025 1-5 Mucous, ur 04/11/2025 Present (A) Calcium oxalate crystals* 04/11/2025 3+ (A) Hyaline casts, ur 04/11/2025 1-5 ASSESSMENT AND PLAN Assessment & Plan Medullary sponge kidney Chronic persistent problem with recurrent UTI Recurrent UTI Symptomatic today may have actually gone through all of her Cipro if TIA's requiring the medicationin his had 3 refills earlier this year testing for UTI sensitivities ever bug in his decide furtherabout medicines. Unfortunately required Cipro due to resistance of her bacteria few years ago, we would like to get her back to Macrobid PRN Orders: Urinalysis reflex to microscopic and culture Urine; Future Basic metabolic panel; Future Nocturia Did try 1 dose of DDAVP 0.1 mg, that has not effective but never did any testing. Go through a program of 0.1 2 tablets nightly for 3 nights check basic panel, if this does not work consider 3 tablets with a basic panel 3 days later. She had understands completely how we will go through this process and will contact me with the the sodium results from [facility] as soon as available so that the titration can be safely done and expedite if without a trip all the way too old in his lab work... Need family help because the information that has not transfer fasting from outside hospital [facility] lab box for management of this condition Orders: desmopressin (DDAVP) 0.1 mg tablet; Take 2 tablets (0.2 mg total) by mouth nightly Mild late onset Alzheimer's dementia without behavioral disturbance, psychotic disturbance, mood disturbance, or anxiety Also following with Dr. Navarrete considering long-term study for some of the new Alzheimer's drugs but never started the medication. Definite candidate based on normal EKG in March to start on Aricept 5 mg. Advise this get started after we do the DDAVP trial Orders: donepeziL (ARICEPT) 5 mg tablet; Take 1 tablet (5 mg total) by mouth nightly Unintentional weight loss of 10% body weight within 6 months Related to her current cognitive issues. Encouraged attention to healthy well- balanced diet with plenty of fruits vegetables and protein intake. She had did gain 4 lb since last visit without development pedal edema Vestibular disequilibrium involving both inner ears Chronic stable problem suffered from traumatic brain injury several years ago. No decline in his current neurocognitive function with this issue Immunization counseling Immunization reviewed with updated recommendations outlined on the AVS along with COVID and influenza planning guidelines Driving safety issue Getting lost in familiar places, not safe to drive outside of her local neighborhood. Family memorygiven information about how to monitor safe local driving outlined on the after visit summary REAL-TIME DISCUSSION AND CARE PLAN Assessment & Plan Nocturia Persistent nocturia with frequent urination every hour or two at night. Previous trial of DDAVP wasineffective. Discussed potential side effects of DDAVP, including sodium level drop and dizziness. - Continue DDAVP trial with increased dose to 0.2 mg nightly for three nights. - Will schedule basic panel to check sodium levels three days into DDAVP trial. - Monitor for side effects such as dizziness and sodium level drop. - Adjust DDAVP dose based on response and sodium levels. Memory loss Intermediate risk based on beta amyloid test. Discussed potential benefits of Aricept (donepezil) to improve memory by increasing acetylcholine levels. Discussed risks of Aricept, including QT interval prolongation and potential dizziness. Shared decision-making regarding starting Aricept after addressing nocturia. - Will start Aricept 5 mg daily after addressing nocturia and confirming sodium levels are stable. - Will monitor for side effects such as diarrhea and dizziness. - Will consider patch form of Aricept if oral form is not tolerated. Medullary sponge kidney with recurrent nephrolithiasis and recurrent urinary tract infection Recurrent UTIs with current symptoms suggestive of possible UTI. Previous treatment with Ciprofloxacin has been effective. - Performed urinalysis with micro to assess for UTI. - Continue Ciprofloxacin for UTI treatment if indicated. Osteoporosis (suspected) Suspected osteoporosis due to weight loss and increased fall risk. Previous bone density scan in 2021, but results not available. - Will schedule DEXA scan to assess bone density. - Will check vitamin D levels. General Health Maintenance Discussed importance of social activities and cognitive engagement to maintain cognitive function. Encouraged participation in community activities and volunteer work. - Encouraged participation in community activities and volunteer work. - Administered hydroxychloroquine shot. - Will administer COVID, tdap, and Shingrix vaccines at pharmacy. Recording duration: 28 minutes Return in about 6 weeks (around 07/11/2025) for Recheck. Any Patient specific educational requests are printed on the AVS summary or letterhead associated with this visit The personal health goals for Sofia Magana were negotiated and agreed upon today. Assessment and plan for new and ongoing medical problems were reviewed and agreed upon. Risk, benefit and side effects of medications were reviewed and sent eRx to the patient's requestedpharmacies. The current lab work was reviewed. Clinically appropriate new Lab orders, referrals, and care team communication were reviewed with Sofia Magana and completed. Appropriate labs and referrals planned for the follow-up visit were reviewed and arranged. Leana Shi MD ERMAKER HELPER documented in this encounter Miscellaneous Notes * Assessment & Plan Note - Leana Shi MD - 05/30/2025 10:45 AM BUTTERMAKER HELPER Associated Problem(s): Medullary sponge kidney Chronic persistent problem with recurrent UTI ERMAKER HELPER * Assessment & Plan Note - Leana Shi MD - 05/30/2025 10:45 AM BUTTERMAKER HELPER Associated Problem(s): Recurrent UTI Symptomatic today may have actually gone through all of her Cipro if TIA's requiring the medicationin his had 3 refills earlier this year testing for UTI sensitivities ever bug in his decide furtherabout medicines. 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 No decline in his current neurocognitive function with this issue ERMAKER HELPER * Addendum Note - Neil Denise - 05/30/2025 10:45 AM CSTAddended by: NEIL DENISE on: 06/04/2025 02:04 PM Modules accepted: Orders ERMAKER HELPER documented in this encounter Plan of Treatment Scheduled Orders Name Type Priority Associated Diagnoses Orde r Schedule Urinalysis reflex to microscopic and culture Urine Microbiology Routine Recurrent UTI Expected: 05/30/2025, Expires: 05/30/2026 Basic metabolic panel Lab Routine Nocturia Expected: 06/04/2025, Expires: 06/04/2026 documented as of this encounter Results * Basic metabolic panel (05/30/2025 12:50 PM BUTTERMAKER HELPER) Sodium 142 135 - 145 mmol/L Comment:Testing performed by : [facility], [address] [place] [address]., [id number] Potassium, pl 4.2 3.3 - 4.9 mmol/L CERNER CH Comment:Testing performed by : [facility], [address] [place] [address]., [id number] Chloride 103 97 - 110 mmol/L CERNER CH Comment:Testing performed by : [facility], [address] [place] [address]., [id number] CO2 26 22 - 32 mmol/L CERNER CH Comment:Testing performed by : [facility], [address] [place] [address]., [id number] Anion gap 13 2 - 15 mmol/L CERNER CH Comment:Testing performed by : [facility], [address] [place] [address]., [id number] BUN 24 6 - 25 mg/dL CERNER CH Comment:Testing performed by : [facility], [address] [place] [address]., [id number] Creatinine 0.61 0.60 - 1.10 mg/dL CERNER CH Comment:Testing performed by : [facility], [address] [place] [address]., [id number] Glucose 89 70 - 199 mg/dL CERNER Comment: Interpretive Data Fasting glucose >/= 126 mg/dl is diagnostic for diabetes. Fasting is defined as no caloric intake for at least 8 hours. Fasting glucose between 100 mg/dl to 125 mg/dl is diagnostic of prediabetes. In a patient with classic symptoms of hyperglycemia or hyperglycemic crisis, a random glucose >/= 200 mg/dl is diagnostic for diabetes. In the absence of unequivocal hyperglycemia, results should be confirmed by repeat testing. The classification and Diagnosis of Diabetes Diabetes Care 2021; 46: S19-S40. Current interpretive data was last revised 2022. 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 HELPER 05/30/2025 5:41 PM BUTTERMAKER HELPER us Leana Shi MD LAB BLOOD ORDERABLES Final Result [facility] [address] [facility] [place] [address] documented in this encounter Visit Diagnoses Diagnosis Medullary sponge kidney- Primary Congenital medullary sponge kidney Recurrent UTI Urinary tract infection, site not specified Nocturia Mild late onset Alzheimer's dementia without behavioral disturbance, psychotic disturbance, mood disturbance, or anxiety Unintentional weight loss of 10% body weight within 6 months Vestibular disequilibrium involving both inner ears Immunization counseling Driving safety issue documented in this encounter Discontinued Medications Medication Sig Discontinue Reason Start Date End Da te desmopressin (DDAVP) 0.1 mg tablet Take 1-4 tablets (0.1-0.4 mg total) by mouth nightly as needed (Nocturia) Reorder 04/11/2025 05/30/2025 documented as of this encounter Historical Medications * This list may reflect changes made after this encounter. melatonin 1 mg tablet,disintegra ting Take 1 capsule by mouth daily multivitamin-mine rals-lutein (Multivitamin 50 Plus) tablet Take 1 capsule by mouth daily added in this encounter Orders Immunization/Injection Count Last Ordered Date First Ordered Date FLU VACCINE HD TRI P F (65Y+) IM - FLUZONE HIGH DOSE 1 05/30/2025 documented in this encounter Care Teams Vector Control Assistant Relationship Specialty Start Date End Date Leana Shi MD PCP - General 10/22/16 Damon Floyd MD [address] [place] [address] [place] [address] Consulting Physician Neurology 07/14/18 [facility] [address] [place] [address] [place] [id number] Consulting Physician Neurology 06/07/24 Magdy Navarrete MD [address] [place] [address] Referring Physician Neurology 11/26/24 documented as of this encounter
[2025-06-05 10:40] LABS: Anion Gap 6 mmol/L (4-12); Blood Urea Nitrogen 25 mg/dL (7-17); Calcium 9.7 mg/dL (8.4-10.2); Carbon Dioxide 32 mmol/L (22-30); Chloride 105 mmol/L (98-107); Estimated Glomerular Filt Rate > 60; Glucose 102 mg/dL (65-110); Osmolality Calculated 300 mOsm/kg (285-295); Potassium 4.1 mmol/L (3.4-5.0); Sodium 143 mmol/L (137-145)
--- OUTSIDE RECORDS SUMMARY | 2025-06-05 11:20 | XMS_ITS | Clinical Summary ---
Author Organization [facility] [address] Address [address] [place] [address] Phone Care Team Providers Care Business Services Officer Name Role Phone Leana Shi MD Primary Care Provider [phone] Damon Floyd MD Unavailable [phone] [facility] Unavailable Magdy Navarrete MD Unavailable [phone] Allergies Active Allergy Reactions Criticality Noted Date [...] In chamomile tea 8-10 oz 850 g 03/08/20 23 Active Additional Information Patient not taking.Reported on 05/30/2025 estradioL (ESTRACE) 0.01 % (0.1 mg/gram) vaginal creamIndications :Recurrent UTI Insert 2 g into the vagina nightly Apply to vagina nightly 42.5 g 11 12/08/19 24 Active Additional Information Patient not taking.Reported on 05/30/2025 carbamide peroxide (DEBROX) 6.5 % otic solutionIndicati ons:Impacted Cerumen Administer 5 drops into each ear as needed for ear pain (tuesday right ear, tuesday left ear) 30 mL 1 11/27/19 25 026 Active ciprofloxacin (CIPRO) 500 mg tabletIndication s:Recurrent UTI TAKE ONE TABLET BY MOUTH TWICE A DAY 14 tablet 3 04/23/20 25 Active multivitamin-min erals-lutein (Multivitamin 50 Plus) tablet Take 1 capsule by mouth daily Active melatonin 1 mg tablet,disintegr ating Take 1 capsule by mouth daily Active desmopressin (DDAVP) 0.1 mg tabletIndication s:Nocturia Take 2 tablets (0.2 mg total) by mouth nightly 20 tablet 1 05/30/20 25 Active donepeziL (ARICEPT) 5 mg tabletIndication s:Mild late onset Alzheimer's dementia without behavioral disturbance, psychotic disturbance, mood disturbance, or anxiety Take 1 tablet (5 mg total) by mouth nightly 30 tablet 1 05/30/20 25 Active desmopressin (DDAVP) 0.1 mg tablet Take 1-4 tablets (0.1-0.4 mg total) by mouth nightly as needed (Nocturia) 12 tablet 1 04/11/20 25 025 Discontin ued(Reord er) Active Problems Problem Noted Date Diagnosed Date [...] CDT Assessment & Plan (08/23/2024 12:37 PM PRODUCT DEVELOPMENT ACTUARY): Chronic, found on recent mobile telemetry monitoring and workup for dizziness. Heart rate regular upon auscultation without murmur today. She has been seen by cardiology for this issue and had a normal ECHO at [facility] with Dr. hopper. No further intervention at this time. Will continue to monitor. Assessment & Plan (07/31/2024 9:09 PM PRODUCT DEVELOPMENT ACTUARY): Chronic, found on recent mobile telemetry monitoring and workup for dizziness. Heart rate regular upon auscultation without murmur today. She has been referred to Cardiology but has yet to set up an appointment-encouraged her to do this latosha as she can not complete a stress test at this time. Memory loss or impairment 04/09/2024 Assessment & Plan (07/31/2024 9:04 PM PRODUCT DEVELOPMENT ACTUARY): Chronic, worsening in the last 3 months. [...] T3, TPO today. Keep follow with Dr. Shi next week. Assessment & Plan (04/20/2024 3:55 [...] 11/25/2017 Assessment & Plan (07/31/2024 8:52 PM PRODUCT DEVELOPMENT ACTUARY): Chronic, controlled without medications at this time. [...] balance re-training. 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 No decline in his current neurocognitive function with this issue Assessment & Plan (08/23/2024 12:33 PM PRODUCT DEVELOPMENT ACTUARY): Dizziness Intermittent dizziness has worsened over the past few weeks. Audiological testing and MRI results are normal. Thyroid levels are slightly high but not concerning. Refer back to neurology for further evaluation and order vestibular physical therapy. Assessment & Plan (07/31/2024 9:07 PM PRODUCT DEVELOPMENT ACTUARY): Acute, intermittent, mostly when sitting to standing [...] Continue meclizine p.r.n. Keep follow with Dr. Shi next week. Assessment & Plan (05/22/2024 8:59 PM CDT): >>ASSESSMENT AND PLAN FOR VERTIGO WRITTEN ON 03/09/2022 2:35 PM BY SAVANNAH HERRERA NP Presents with dizziness worse with position changes and tinnitus in R ear. Neuro exam intact, no acute findings on exam. Will refer to PT for Wily angel. Enouraged Flonase use. Offered Meclizine, patient refused. Keep follow up with Dr. shi next month. Call with any changes/concerns. Assessment [...] other acute changes. Advised to avoid any rycl-[id number]-[id number] medicines at this time. Push fluids. Follow [...] (10/30/2016): Medullary sponge kidney Assessment & Plan (05/30/2025 12:44 PM PRODUCT DEVELOPMENT ACTUARY): Chronic persistent problem with recurrent UTI Assessment & Plan (08/29/2019 12:25 PM PRODUCT DEVELOPMENT ACTUARY): Continue on the special kidney diet that Dr. JAMES gave last time. Recurrent UTI 12/08/2013 Overview (10/30/2016): Recurrent urinary tract infection Assessment & Plan (05/30/2025 12:44 PM PRODUCT DEVELOPMENT ACTUARY): Symptomatic today may have actually gone through all of her Cipro if TIA's requiring the medication in his had 3 refills earlier this year testing for UTI sensitivities ever bug in his decide further about medicines. Unfortunately required Cipro due to resistance of her bacteria few years ago, we would like to get her back to Macrobid PRN Orders: Urinalysis reflex to microscopic and culture Urine; Future Basic metabolic panel; Future Assessment & Plan (04/20/2024 3:25 PM CDT): [...] bathtub. Admits they did a CXR at [facility] that showed bruisied rib.- no records. Tenderness [...] fit as noted above. Was seen in [facility] after fall-no records. No acute [...] yet. Assessment & Plan (07/31/2024 9:08 PM PRODUCT DEVELOPMENT ACTUARY): Chronic, controlled. Carotid Dopplers from 03/2024 unremarkable. [...] (02/07/2019): Added automatically from request for surgery [id number] Assessment & Plan (08/29/2019 12:26 PM PRODUCT DEVELOPMENT ACTUARY): Weight remains stable, and she reports a good appetite. Nausea 02/07/2019 02/29/2020 Overview (02/07/2019): Added automatically from request for surgery [id number] Bilateral occipital neuralgia 02/02/2019 02/29/2020 Hypothyroidism, adult 12/22/20182019 Assessment & Plan (08/29/2019 12:23 PM PRODUCT DEVELOPMENT ACTUARY): TSH today is a little high at [...] 02/29/2020 Assessment & Plan (09/01/2019 10:16 AM PRODUCT DEVELOPMENT ACTUARY): Check follow up lipid panel for review with Dr. Tejal Shi at annual. Influenza 09/06/2014 02/29/2020 Overview (10/29/2016): Influenza Cough 09/06/2014 02/29/2020 Overview (10/29/2016): Cough Trochanteric bursitis 12/08/20132019 Overview (10/29/2016): Trochanteric bursitis of both hips Hot flashes due to menopause 11/22/2012 02/29/2020 Overview (10/27/2016): Menopausal syndrome (hot flashes) Encounters Date Type Department Care Team Description 05/30/2025 12:50 PM PRODUCT DEVELOPMENT ACTUARY Lab [facility] [address] [place] [address] Recurrent UTI 05/30/2025 10:45 AM PRODUCT DEVELOPMENT ACTUARY Office Visit [facility] [address] [place] [address] Leana Shi MD Medullary sponge kidney (Primary Dx); Recurrent UTI; Nocturia; Mild late onset Alzheimer's dementia without behavioral disturbance, psychotic disturbance, mood disturbance, or anxiety; Unintentional weight loss of 10% body weight within 6 months; Vestibular disequilibrium involving both inner ears; Immunization counseling; Driving safety issue 04/11/2025 12:30 PM CDT Lab [facility] [address] [place] [address] Need for hepatitis B screening test; Nocturia 04/11/2025 10:15 AM CDT Office Visit [facility] [address] [place] [address] Leana Shi MD Memory loss or impairment (Primary Dx); History of traumatic brain injury; Nocturia; Medullary sponge kidney; Recurrent UTI; Spondylosis of cervical region without myelopathy or radiculopathy; Immunization counseling; Need for hepatitis B screening test 04/08/2025 Telephone [facility] [address] [place] [address] Leana Shi MD 03/07/2025 Orders Only [facility] Health Information Management [address] [place] [address] Scanning, Provider from Last 3 Months Immunizations Immunization Administration Dates Next Due Flucelvax Influenza Quad 07/28/2022 Influenza, Quadrivalent, Hig h Dose, Preservative Free, Intrr 09/22/2023,05/22/2021 Influenza, Split 05/07/2013 Influenza, Trivalent, High D ose, Split, Preservative Free, Intramuscular 05/30/2025,05/23/2019 Influenza, Trivalent, IM (MDV) 07/28/2015,2013 Influenza, Unspecified [...] - 08/24/2020 Bilateral Bilateral cataract [facility] successful surgery Medical History Medical History Date [...] drink = 0.6 oz pur e alcohol) [facility] Utilities Answer Date Recorded In the past 12 months has [employer], gas, oil, or water [employer] threatened to shut off services in your [...] any time in the past 12 m [facility], were you homeless or living in a skilled nursing (including now)? 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 Not on file Not on file Not on fi le Obstetrics History Para Term AB IAB SAB Ectopic Multiple Livin g Live Births 2 2 2 Date Outcome GA Total Labor Labor/2nd/3rd Weight Sex Type Anes PTL Crystal A1 A5 Name Clin Term Term Last Filed Vital Signs Vital Sign Reading Time Taken Comments Blood Pressure 106/60 05/30/2025 11:14 AM PRODUCT DEVELOPMENT ACTUARY Pulse 65 05/30/2025 11:14 AM PRODUCT DEVELOPMENT ACTUARY Temperature 36 C (96.8 F) 05/30/2025 11:14 AM PRODUCT DEVELOPMENT ACTUARY Respiratory Rate 16 05/30/2025 11:14 AM PRODUCT DEVELOPMENT ACTUARY Oxygen Saturation 97% 05/30/2025 11:14 AM PRODUCT DEVELOPMENT ACTUARY Inhaled Oxygen Concentration - - Weight 65.3 kg (144 lb) 05/30/2025 11:14 AM PRODUCT DEVELOPMENT ACTUARY Height 171.5 cm (5' 7.5) 05/30/2025 11:14 AM CS T Body Mass Index 22.22 05/30/2025 11:14 AM PRODUCT DEVELOPMENT ACTUARY Plan of Treatment Health Maintenance Due Date Last Done Comments DTaP/Tdap/Td Vaccine (2 - Td or Tdap) 04/20/2022 04/20/2012 Zoster Vaccine (3 of 3) 04/26/2023 03/01/2023, 09/01 Covid-19 Vaccine (6 - 2024-2 6 season) 2025 05/31/2022, 05/30/2022, 10/22/2021, Additional history exists Fall Risk Assessment 11/26/2025 11/26/2024, 09/22/2023, 04/09/2022, Additional history exists Well Visit 65+ 11/26/2025 11/26/2024, 08/26, 04/09/2022, Additional history exists Depression Screening 04/11/2026 04/11/2025, 11/26/2024, 09/22/2023, Additional history exists Osteoporosis Screening-Bone Density Scan 12/04/2026 12/04/2024, 08/04/2021, 03/14/2020 Hepatitis C Screening Completed 08/02/2016 Colon Cancer Screening-CT Colonography Discontinued 03/28/2020 Colon Cancer Screening-Colonoscopy Discontinued 03/28/2020 Colon Cancer Screening-Sigmoidoscopy Discontinued 03/28/2020 Pneumococcal vaccine 65+ Completed 024, 08/02/2016, 11/20/2014, Additional history exists Breast Cancer Screening-Mammogram Discontinued 12/04/2024, 11/01/2023, 10/26/2022, Additional history exists Colon Cancer Screening-DNA Stool Discontinued 12/07/19, 03/28/2020 Colon Cancer Screening-FIT Discontinued 12/06/2024, Colon Cancer Screening-FOBT Discontinued 12/06/2024, 0 03/28/2020 Colorectal Cancer Screening Discontinued Hepatitis B Screening Completed 04/11/2025 Influenza Vaccine Completed 05/30/2025, , 07/28/2022, Additional history exists Procedures Procedure Name Priority Date/Time Associated Diagnosis Comments EGFR Routine 05/30/2025 12:50 PM PRODUCT DEVELOPMENT ACTUARY Recurrent UTI BASIC METABOLIC PANEL Routine 05/30/2025 12:50 PM PRODUCT DEVELOPMENT ACTUARY Recurrent UTI URINALYSIS, MICROSCOPIC ONLY Routine 04/11/2025 12:20 PM CDT Nocturia EGFR Routine 04/11/2025 12:20 PM CDT Nocturia BASIC METABOLIC PANEL Routine 04/11/2025 12:20 PM CDT Nocturia URINALYSIS AND REFLEX TO MICROSCOPIC Routine 04/11/2025 12:20 PM CDT Nocturia HEPATITIS B CORE ANTIBODY, TOTAL Routine 04/11/2025 12:20 PM CDT Need for hepatitis B screening test HEPATITIS B SURFACE ANTIBODY (IMMUNE STATUS) Routine 04/11/2025 12:20 PM CDT Need for hepatitis B screening test HEPATITIS B SURFACE ANTIGEN Routine 04/11/2025 12:20 PM CDT Need for hepatitis B screening test SCAN - LABS 03/07/2025 SCAN - RADIOLOGY/IMAGING 03/07/2025 STOOL DNA COLOGUARD Routine 12/06/2024 1:00 AM CDT Colon cancer screening HM DEXA SCAN Routine 12/04/2024 1:42 PM CDT HM MAMMOGRAPHY Routine 12/04/2024 1:40 PM CDT COLONOSCOPY 03/28/2020 8:49 AM CDT HEPATITIS C ANTIBODY Routine 08/02/2016 10:03 AM PRODUCT DEVELOPMENT ACTUARY from Last 3 Months or Most Recently Relevant to Health Maintenance Results * eGFR (05/30/2025 12:50 PM PRODUCT DEVELOPMENT ACTUARY) eGFR >90 >=60 mL/min/1. 73 m2 Comment: Interpretive Data Reference Interval Normal >/= 90 mL/min/1.73m2 Mildly decreased* 60 - 89 mL/min/1.73m2 Mildly to moderately decreased 45 - 59 mL/min/1.73m2 Moderately to severely decreased 30 - 44 mL/min/1.73m2 Severely decreased 15 - 29 mL/min/1.73m2 Kidney Failure < 15 mL/min/1.73m2 *Relative to young adult level Estimated glomerular filtration rate is determined by the 2020 CKD-EPI equation recommended by the National Kidney Foundation (A Unifying Approach to GFR Estimation: Recommendations of the NKF-ASK Task Force on Reassessing the Inclusion of Race in Diagnosing Kidney Disease, JASN 2020). The CKD-EPI equation should not be used for patients with unstable renal function and has not been validated in children and those over 70. Current interpretive data was last reviewed 2021. Testing performed by: [address] [address] Blood 05/30/2025 12:5 0 PM PRODUCT DEVELOPMENT ACTUARY 05/30/2025 5:49 PM PRODUCT DEVELOPMENT ACTUARY us Leana Shi MD LAB BLOOD ORDERABLES Final Result [address] Department [place] [address] * Basic metabolic panel (05/30/2025 12:50 PM PRODUCT DEVELOPMENT ACTUARY) Sodium 142 135 - 145 mmol/L Comment:Testing performed by : [address], [address] Potassium, pl 4.2 3.3 - 4.9 mmol/L [facility] Comment:Testing performed by : [address], [address] Chloride 103 97 - 110 mmol/L [facility] Comment:Testing performed by : [address], [address] CO2 26 22 - 32 mmol/L [facility] Comment:Testing performed by : [address] [address] Anion gap 13 2 - 15 mmol/L [facility] Comment:Testing performed by : [address], [address] BUN 24 6 - 25 mg/dL [facility] Comment:Testing performed by : [address], [address] Creatinine 0.61 0.60 - 1.10 mg/dL [facility] Comment:Testing performed by : [address] [place]., [address] Glucose 89 70 - 199 mg/dL [facility] Comment: Interpretive Data Fasting glucose >/= 126 [...] classification and Diagnosis of Diabetes Diabetes Care 202; 46: S19-S40. Current interpretive data was last revised 2022. Testing performed by: [facility], [address] [place] [address]., [address] Calcium 9.5 8.5 - 10.3 mg/dL [facility] Comment:Testing performed by : [address] [address] Blood 05/30/2025 12:5 0 PM PRODUCT DEVELOPMENT ACTUARY 05/30/2025 5:41 PM PRODUCT DEVELOPMENT ACTUARY us Leana Shi MD LAB BLOOD ORDERABLES Final Result [facility] [address] Department of Laboratories [place], [place] [id number] * eGFR (04/11/2025 12:20 PM CDT) eGFR 65 >=60 mL/min/1. 73 m2 Comment: Interpretive Data Reference Interval Normal >/= 90 mL/min/1.73m2 Mildly decreased* 60 - 89 mL/min/1.73m2 Mildly to moderately decreased 45 - 59 mL/min/1.73m2 Moderately to severely decreased 30 - 44 mL/min/1.73m2 Severely decreased 15 - 29 mL/min/1.73m2 Kidney Failure < 15 mL/min/1.73m2 *Relative to young adult level Estimated glomerular filtration rate is determined by the 2020 CKD-EPI equation recommended by the National Kidney Foundation (A Unifying Approach to GFR Estimation: Recommendations of the NKF-ASK Task Force on Reassessing the Inclusion of Race in Diagnosing Kidney Disease, JASN 2020). The CKD-EPI equation should not be used for patients with unstable renal function and has not been validated in children and those over 70. Current interpretive data was last reviewed 2021. Testing performed by: [address] [address] Blood 04/11/2025 12:2 0 PM CDT 04/11/2025 5:50 PM CDT us Leana Shi MD LAB BLOOD ORDERABLES Final Result [address] Department [place] [address] * (ABNORMAL) Urinalysis reflex to microscopic (04/11/2025 12:20 PM CDT) Color, ur Yellow Yellow Comment:Testing performed by : [address] [address] Clarity, ur Clear Clear [facility] Comment:Testing performed by : [address] [address] Specific gravity, ur 1.024 1.003 - 1.030 [facility] Comment:Testing performed by : [address] [address] pH, urine 6.5 [facility] Comment: Interpretive Data U rine pH is affected by diet, medications, systemic acid-base disturbances, and renal tubular function. pH may affect urinary stone formation. For example, urine pH below 6.0 may help reduce the tendency for calcium phosphate stones and pH greater than 6.0 may reduce the tendency for uric acid stone formation. Source: [facility] Current Interpretive Data was last revised on 2017 Testing performed by: [address] [address] Protein, ur ql Trace Negative [facility] Comment:Testing performed by : [address] [address] Glucose, ur ql Negative Negative [facility] Comment:Testing performed by : [address] [address] Ketones, ur Trace Negative [facility] Comment:Testing performed by : [facility], [address] [place] [address]., [address] Bilirubin, ur Negative Negative [facility] CH Comment:Testing performed by : [facility], [address] [place] [address]., [address] Blood, ur Negative Negative [facility] Comment:Testing performed by : [facility], [address] [place] [address]., [address] Urobilinogen, ur <2.0 <2.0 mg/dL [facility] CH Comment:Testing performed by : [facility], [address] [place] [address]., [address] Nitrite, ur Negative Negative [facility] CH Comment:Testing performed by : [address], [address] Leukocyte esterase, ur 1+(A) Negative [facility] Comment:Testing performed by : [address], [address] UA reflex comment Reflex to microscopic UA will be performed. [facility] Comment:Testing performed by : [address], [address] Urine 04/11/2025 12:2 0 PM CDT 04/11/2025 4:46 PM CDT us Leana Shi MD LAB URINE ORDERABLES Final Result Performing Organization Address City/[facility]/ZIP Co de Phone Number [facility] MURRY [address] Department of Laboratories [place], [place] [id number] * Hepatitis B core antibody, total Blood (04/11/2025 12:20 PM CDT) Hep B core IgG/IgM Nonreactive Nonreactive Comment:Testing performed by : [facility], [address] [facility] [place]., [address] Blood 04/11/2025 12:2 0 PM CDT 04/12/2025 6:13 AM CDT us Leana Shi MD LAB MICROBIOLOGY - GENERAL ORDERABLES Final Result [facility] MURRY [address] [place] [address] * Hepatitis B surface antibody (immune status) Blood (04/11/2025 12:20 PM CDT) [facility] HBsAb (immune status) Reactive Comment: Interpretive Data Nonreactive: This result is consistent with a lack of immunity to Hepatitis B Virus when used in the setting of routine screening. Equivocal: The immune status of the individual should be further assessed, if appropriate, after consideration of clinical status, risk factors, and additional diagnostic information. Reactive: This result is consistent with immunity to Hepatitis B Virus when used in the setting of routine screening. Current interpretive data was last revised on 19. Testing performed by: [address] [address] HBsAb (immune status) index 3,348.0 mIUnits/m L [facility] Comment:Testing performed by : [address] [address] Blood 04/11/2025 12:2 0 PM CDT 04/11/2025 4:46 PM CDT us Leana Shi MD LAB MICROBIOLOGY - GENERAL ORDERABLES Final Result Performing Organization Address City/[facility]/ZIP Co de Phone Number [place] [phone] [facility] [place] [address] * Hepatitis B Surface Antigen Blood (04/11/2025 12:20 PM CDT) [facility] HepBsAg Nonreactive Nonreactive Comment:Testing performed by : [address] [address] Blood 04/11/2025 12:2 0 PM CDT 04/11/2025 4:46 PM CDT us Leana Shi MD LAB MICROBIOLOGY - GENERAL ORDERABLES Final Result [facility] [address] [place] [address] * (ABNORMAL) Urinalysis, microscopic only (04/11/2025 12:20 PM CDT) WBC, ur 6-10(A) 0 - 5 /HPF Comment:Testing performed by : [facility], [address] [place] [address]., [address] RBC, ur 3-5(A) 0 - 2 /HPF [facility] Comment:Testing performed by : [facility], [address] [place] [address], [address] Epithelial cells, squamous, ur 1-5 0 - 5 /HPF [facility] Comment:Testing performed by : [facility], [address] [place] [address], [address] Mucous, ur Present(A) [facility] Comment:Testing performed by : [facility], [address] [place] [address], [address] Calcium oxalate crystals, ur 3+(A) [facility] Comment:Testing performed by : [facility], [address] [place] [address], [address] Hyaline casts, ur 1-5 0 - 10 /LPF [facility] Comment:Testing performed by : [facility], [address] [place] [address], [address] Urine 04/11/2025 12:2 0 PM CDT 04/11/2025 4:46 PM CDT us Leana Shi MD LAB URINE ORDERABLES Final Result Performing Organization Address City/State/[facility] Co de Phone Number [address] Department [place] [address] * Basic metabolic panel (04/11/2025 12:20 PM CDT) Sodium 139 135 - 145 mmol/L Comment:Testing performed by : [address] [address] Potassium, pl 4.5 3.3 - 4.9 mmol/L [facility] Comment:Testing performed by : [address], [address] Chloride 102 97 - 110 mmol/L [facility] Comment:Testing performed by : [address], [address] CO2 24 22 - 32 mmol/L [facility] Comment:Testing performed by : [facility], [address] [place] [address]., [address] Anion gap 13 2 - 15 mmol/L [facility] Comment:Testing performed by : [facility], [address] [place] [address]., [address] BUN 23 6 - 25 mg/dL [facility] Comment:Testing performed by : [address] [address] Creatinine 0.91 0.60 - 1.10 mg/dL [facility] Comment:Testing performed by : [facility], [address] [place] [address]., [address] Glucose 114 70 - 199 mg/dL [facility] Comment: Interpretive Data Fasting glucose >/= 126 [...] was last revised 2022. Testing performed by: [address] [address] Calcium 9.9 8.5 - 10.3 mg/dL [facility] Comment:Testing performed by : [address] [address] Blood 04/11/2025 12:2 0 PM CDT 04/11/2025 4:46 PM CDT Leana Shi MD LAB BLOOD ORDERABLES Final Result [facility] JEANMARIE [address] Department [place] [address] * SCAN - RADIOLOGY/IMAGING (03/07/2025) Anatomical Region Laterality Modality Other us Provider Scanning Final Result * SCAN - LABS (03/07/2025) us Provider Scanning Edited Result - Final * Stool DNA - Cologuard (12/06/2024 1:00 AM CDT) Stool DNA - Cologuard Negative Negative [employer] (CLIA #:[id number]) Comment: The Cologuard (TM) test was performed [...] screened with both Cologuard and colonoscopy. (Venu Delgado al, N Engl J Med 2014;370(14):1286- 1297) The normal value (reference range) for this assay is negative. COLOGUARD RE-SCREENING RECOMMENDATION: Periodic colorectal cancer screening is an important part of preventive healthcare for asymptomatic individuals at average risk for colorectal cancer. Following a negative Cologuard result, the [place] [employer] Society and U.S. Multi-Society Task Force screening guidelines recommend a Cologuard re-screening interval of 3 years. References: [place] [employer] Guideline for Colorectal Cancer Screening: https://www.cancer.org/cancer/pkvpl-aiflno-astuit/bbaijkrtu-xjqmdumbk-wugoktu/ac s-rec ommendations.html.; Donnell DK, Juliocesar CR, Aranza ZhangK, Colorectal Cancer Screening: Recommendations for Physicians and Patients from the U.S. Multi-Society Task Force on Colorectal Cancer Screening , Am J Gastroenterology 2017; 112:0640-1161. TEST DESCRIPTION: Composite algorithmic analysis of stool [...] screened with both Cologuard and colonoscopy. (Venu Delgado al, N Engl J Med 2014;370(14):0701-0831.) Cologuard may produce a false negative or false positive result (no colorectal cancer or precancerous polyp present at colonoscopy follow up). A negative Cologuard test result does not guarantee the absence of CRC or advanced adenoma (pre-cancer). The current Cologuard screening interval is every 3 years. ([place] [employer] Society and U.S. Multi-Society Task Force). Cologuard performance data in a 10,000 patient pivotal study using colonoscopy as the reference method can be accessed at the following location: www.Offerum.Elev[employer]/results. Additional description of the Cologuard test process, warnings and precautions can be found at www.[employer] Game [employer].com. Stool 12/06/2024 1:00 AM CDT 12/08/2024 11:22 AM CDT us Leana Shi MD LAB BODY FLUIDS AND STOOLS ORDERABLES Final Result [facility] (CLIA #:[id number]) [address] [address] * (ABNORMAL) DEXA SCAN (12/04/2024 1:42 PM CDT) Scribed HM Deca Scan Abnormal Comment:Low bone mass us Historical Provider HEALTH MAINTENANCE Final Result * HM MAMMOGRAPHY (12/04/2024 1:40 PM CDT) Mammography Normal us Historical Provider HEALTH MAINTENANCE Final Result * COLONOSCOPY (03/28/2020 8:49 AM CDT) Anatomical Region Laterality Modality Other Narrative Procedure Note Paula Black MD - 03/28/2020 8:49 AM CDT [facility] Patient Name: Sofia Magana Procedure Date: 03/28/2020 8:49 AM Date of : 1945 Admit Type: Outpatient Age: 75 Gender: Female Attending MD: Paula Black M.D. [facility] 1 Note Status: Finalized Patient Profile: This is a 75 year old female. No family history of colon cancer. Screening. Procedure: Colonoscopy Indications: Screening for colorectal malignant neoplasm, Last colonoscopy: September 2009 Referring MD: Leana Shi M.D. Providers: Paula Black M.D. Impression: - [...] passed under direct vision. The PediatricColonoscope [id number]-H190L [id number] was introduced through the anusand advanced to [...] 8:49 AM Procedure Code(s): --- Professional --- 75554, Colonoscopy, flexible; with biopsy, single or multiple Diagnosis Code(s): --- Professional --- Z12.11, Encounter for screening for malignant neoplasm of colon K64.8, Other hemorrhoids D12.3, Benign neoplasm of transverse colon (hepatic flexure orsplenic flexure) CPT copyright 2017 [place] [employer]. All rights reserved. The codes documented in this report are preliminary and upon corporate ethics officer reviewmay be revised to meet current compliance requirements. Recognized by the [place] [employer] for Gastrointestinal Endoscopy for promoting quality in endoscopy Paula Black MD ENDOSCOPY PROCEDURES Final Result * Hepatitis C antibody (08/02/2016 10:03 AM PRODUCT DEVELOPMENT ACTUARY) SIGNAL TO CUT-OFF 0.03 <1.00 [facility] HISTORICAL RESULTS Comment: REPORT COMMENT: FASTING:UNKNOWN [facility] [address] [place] [address] Director: LEONARD CUENCA DO,MPH Hep C Ab NON-REACT LEYLA NON-REACT LEYLA [facility] HISTORICAL RESULTS 08/02/2016 10:0 3 AM PRODUCT DEVELOPMENT ACTUARY Leana Shi MD LAB MICROBIOLOGY - GENERAL ORDERABLES Final Result [facility] HISTORICAL RESULTS from Last 3 Months or Most Recently Relevant to Health Maintenance Insurance MEDICARE COMMERCIAL GENERIC COMMERCIAL GENERIC MEDICARE AETNA SENIOR SUPPLEMENT [address] MEDICARE ADVANTAGE MEDICARE [facility] MEDICARE ADVANTAGE [facility] MEDIC[facility] Address: [address] [address] [place] [address] AETNA SENIOR SUPPLEMENT Advance Directives For more information, please contact: [phone] Documents on File Type Date Recorded Patient Supervisor Lathing Expl anation ADVANCE DIRECTIVE 12/21/2018 3:19 PM [...] 9:52 AM 02/12/2019 9:52 AM Care Teams Business Services Officer Relationship Specialty Start Date End Date Leana Shi MD PCP - General 10/22/16 Damon Floyd MD [address] [facility] [address] [place] [address] Consulting Physician Neurology 07/14/18 Tom Tafoya Si, MD [address] [facility] [address] [place] [address] Consulting Physician Neurology 06/07/24 Magdy Navarrete MD 2 [place] [address] Referring Physician Neurology 11/26/24
--- OUTSIDE RECORDS SUMMARY | 2025-06-05 11:20 | XMS_ITS | Encounter Summary ---
Author Organization [facility] Address [address] [place] [address] Phone Care Team Providers Care Pilot Plant Supervisor Name Role Phone Leana Shi MD Primary Care Provider [phone] Damon Floyd MD Unavailable [phone] Mattie Khoury Unavailable [phone] LottieTom Si, MD Unavailable Magdy Navarrete MD Unavailable [phone] Encounter Details Date Type Department Care Team (Late st Contact Info) Description 12/08/2017 Orders Only [facility] [address] [place] [address] Leana Shi MD [address] [place] [address] Social History Tobacco Use Types Packs/Day Years Used Date Smoking Tobacco: Never Smokeless Tobacco: Never Alcohol Use Standard Drinks/Week Comments No 0 (1 standard drink = 0.6 oz pur e alcohol) Comments No Sex and Gender Information Value Date Recorded Sex Assigned at Not on file Legal Sex Female 8:12 AM ENAMELER Gender Identity Not on file Sexual Orientation Not on file 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 file Not on file Not [...] on filedocumented in this encounter Care Teams Pilot Plant Supervisor Relationship Specialty Start Date End Date Leana Shi MD PCP - General 10/22/16 Damon Floyd MD [address] [facility] [address] [place], [place] [phone] Consulting Physician Neurology 07/14/18 Mattie Khoury [address] [place] [address] [address] [place] [address] ACO Care Operater 01/30/19 01/31/19 Tom Tafoya Si, MD [address] [facility] [address] [place] [address] Consulting Physician Neurology 06/07/24 Magdy Navarrete MD [address] [place] [phone] Referring Physician Neurology 11/26/24 documented as of this encounter
--- OUTSIDE RECORDS SUMMARY | 2025-06-05 11:20 | XMS_ITS | Clinical Summary ---
Author Organization [facility] Address [address] [place] [address] Phone Care Team Providers Care Online Retailer Name Role Phone Leana Shi MD Primary Care Provider [phone] Magdy Navarrete MD Unavailable [phone] Allergies Active Allergy Reactions Criticality Noted Date [...] (VITAMIN C PO) Take by mouth. Active Social History Tobacco Use Types Packs/Day Years [...] PM CDT Pulse 67 09/17/2024 3:33 PM BABY ATTENDANT Temperature 36.3 C (97.4 F) 12/14/2024 2:34 PM CDT Respiratory Rate 16 09/17/2024 3:33 PM BABY ATTENDANT Oxygen Saturation 100% 12/14/2024 2:34 PM CDT Inhaled Oxygen Concentration - - Weight 70.1 kg (154 lb 8 oz) 12/14/2024 2:34 PM CDT Height 167.6 cm (5' 6) 12/14/2024 2:34 PM CDT Body Mass Index 24.94 12/14/2024 2:34 PM CDT Plan of Treatment Upcoming Encounters Date Type Department Care Team (Late st Contact Info) Description 06/17/2025 1:30 PM BABY ATTENDANT Office Visit [facility] - [facility] [address] [place] [address] Magdy Navarrete MD [address] [place] [address] Health Maintenance Due Date Last Done Comments Hepatitis C Virus (HCV) Screening 1945 Medicare Initial AWV [id number] 12/23/2012 Respiratory Syncytial Virus (RSV) Immunization (Adult) (1 - 1-dose 75+ series) 2022 Zoster Immunization (3 of 3) 04/26/2023 03/01/2023, 09/01/2010 DEXA Bone Density 08/04/2023 08/04/2021, 03/14/2020 Influenza Immunization (#1) 03/25/2025/03/2024, 07/28/2022, 05/22/2021, Additional history exists SARS-COV-2 Immunization ( season) 2025 05/30/2022, 10/22/2021, 05/22/2021, Additional history exists TdaP [...] to complete this topic Insurance MEDICARE C [employer] [facility] Care Teams Online Retailer Relationship Specialty Start Date End Date Leana Shi MD [address] [facility] [place] [address] PCP - General Geriatric Medicine 05/16/24 Magdy Navarrete MD [address] [place] [address] Consulting Physician Neurology 09/17/24
--- OUTSIDE RECORDS SUMMARY | 2025-06-05 11:20 | XMS_ITS | Encounter Summary ---
Author Organization [facility] Address [address] [place] [address] Phone Care Team Providers Care Burn Crew Member Name Role Phone Leana Shi MD Primary Care Provider [phone] Damon Floyd MD Unavailable [phone] [facility] Si, MD Unavailable Magdy Navarrete MD Unavailable [phone] Encounter Details Date Type Department Care Team (Late st Contact Info) Description 06/09/2020 Orders Only [facility] [address] [place] [address] Scanning, Provider Social History Tobacco [...] on file Legal Sex Female 8:12 AM MANAGER ASSURANCE Gender Identity Not on file Sexual Orientation Not on file 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 [address] [place] [address] Consulting Physician Neurology 07/14/18 Tom Tafoya Si, MD [address] [facility] [address] [place] [address] Consulting Physician Neurology 06/07/24 Magdy Navarrete MD [address] [place] [phone] Referring Physician Neurology 11/26/24 documented as of this encounter
--- OUTSIDE RECORDS SUMMARY | 2025-06-05 11:20 | XMS_ITS | Encounter Summary ---
Author Organization [facility] Healthcare Address [address] [place] [address] Care Team Providers Care Dry Wall Installer Name Role Phone Leana Shi MD Primary Care Provider + [phone] Damon Floyd MD Unavailable [phone] Tom Tafoya Si, MD Unavailable Magdy Navarrete MD Unavailable [phone] Encounter Details Date Type Department Care Team (Late st Contact Info) Description 03/13/2020 Telephone [facility] [address] [place] [address] Natali Baxter, RT Social History Tobacco Use [...] on file Legal Sex Female 8:12 AM DOG BOARDER Gender Identity Not on file Sexual Orientation Not on file 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 on file Not on file Not on fi le documented as of this encounter Plan of Treatment Not on file documented as of this encounter Visit Diagnoses Not on filedocumented in this encounter Care Teams Dry Wall Installer Relationship Specialty Start Date End Date Leana Shi MD PCP - General 10/22/16 Damon Floyd MD [address] [facility] [address] [place] [address] Consulting Physician Neurology 07/14/18 Tom Tafoya Si, MD [address] [facility] [address] [address] [place] [address] Consulting Physician Neurology 06/07/24 Magdy Navarrete MD [address] [place] [address] Referring Physician Neurology 11/26/24 documented as of this encounter
--- OUTSIDE RECORDS SUMMARY | 2025-06-05 11:20 | XMS_ITS | Encounter Summary ---
Author Organization [facility] Healthcare Address [address] [place] [address] Care Team Providers Care Crusher Foreman Name Role Phone Leana Shi MD Primary Care Provider + [phone] Damon Floyd MD Unavailable [phone] Tom Tafoya Si, MD Unavailable Magdy Navarrete MD Unavailable [phone] Encounter Details Date Type Department Care Team (Late st Contact Info) Description 08/03/2021 Telephone [facility] 1 [place] [address] Brittni Fitch, RT Social History Tobacco Use [...] on file Legal Sex Female 8:12 AM SUPERVISOR SHIPPING ROOM Gender Identity Not on file Sexual Orientation Not on file 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 on file Not on file Not on fi le documented as of this encounter Plan of Treatment Not on file documented as of this encounter Visit Diagnoses Not on filedocumented in this encounter Care Teams Crusher Foreman Relationship Specialty Start Date End Date Leana Shi MD PCP - General 10/22/16 Damon Floyd MD [address] [facility] [address] [place] [address] Consulting Physician Neurology 07/14/18 [place] [address] [place] [address] [address] [place] [address] Consulting Physician Neurology 06/07/24 Magdy Navarrete MD [address] [place] [address] Referring Physician Neurology 11/26/24 documented as of this encounter
--- OUTSIDE RECORDS SUMMARY | 2025-06-05 11:20 | XMS_ITS | Encounter Summary ---
Author Organization [facility] Address [address] [place] [address] Phone Care Team Providers Care Filling Machine Operator Name Role Phone Leana Shi MD Primary Care Provider [phone] Damon Floyd MD Unavailable [phone] [facility] MD Unavailable Magdy Navarrete MD Unavailable [phone] Encounter Details Date Type Department Care Team (Late st Contact Info) Description 05/26/2020 Orders Only [facility] [address] [place] [address] Scanning, Provider Social History Tobacco [...] on file Legal Sex Female 8:12 AM STUDY ABROAD COORDINATOR Gender Identity Not on file Sexual Orientation Not on file 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 Not on file Not on file [...] on filedocumented in this encounter Care Teams Filling Machine Operator Relationship Specialty Start Date End Date Leana Shi MD PCP - General 10/22/16 Damon Floyd MD [address] [facility] [address] [place] [address] Consulting Physician Neurology 07/14/18 Tom Tafoya Si, MD [address] [facility] [address] [place] [address] Consulting Physician Neurology 06/07/24 Magdy Navarrete MD 2 [place] [address] Referring Physician Neurology 11/26/24 documented as of this encounter
--- OUTSIDE RECORDS SUMMARY | 2025-06-05 11:20 | XMS_ITS | Encounter Summary ---
Author Organization [facility] Address [address] [place] [address] Phone Care Team Providers Care Draw End Hand Name Role Phone Leana Shi MD Primary Care Provider [phone] Damon Floyd MD Unavailable [phone] [facility], MD Unavailable Magdy Navarrete MD Unavailable [phone] Encounter Details Date Type Department Care Team (Late st Contact Info) Description 05/20/2020 Orders Only [facility] [address] [place] [address] Scanning, Provider Social History Tobacco [...] on file Legal Sex Female 8:12 AM CHURN TENDER Gender Identity Not on file Sexual Orientation Not on file 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
--- OUTSIDE RECORDS SUMMARY | 2025-06-05 11:20 | XMS_ITS | Encounter Summary ---
Author Organization [facility] Address [address] [place] [address] Phone Care Team Providers Care Dairy Equipment Installer Name Role Phone Leana Shi MD Primary Care Provider + [phone] Damon Floyd MD Unavailable [phone] [facility], MD Unavailable Magdy Navarrete MD Unavailable [phone] Encounter Details Date Type Department Care Team (Late st Contact Info) Description 09/16/2022 Orders Only [facility] [address] [place] [address] Leana Shi MD [address] [place] [address] Social History Tobacco Use Types [...] on file Legal Sex Female 8:12 AM ENGINEERING PROGRAM MANAGER Gender Identity Not on file Sexual Orientation Not on file 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 on file Not on file Not [...] on filedocumented in this encounter Care Teams Dairy Equipment Installer Relationship Specialty Start Date End Date Leana Shi MD PCP - General 10/22/16 Damon Floyd MD [address] [facility] [address] [place] [address] Consulting Physician Neurology 07/14/18 LottieTom bautista Si, MD [address] [facility] [address] [place] [address] Consulting Physician Neurology 06/07/24 Magdy Navarrete MD [address] [place] [address] Referring Physician Neurology 11/26/24 documented as of this encounter
--- OUTSIDE RECORDS SUMMARY | 2025-06-05 11:20 | XMS_ITS | Clinical Summary ---
Author Organization [facility] Address [address] [place] [address] Care Team Providers Care Senior Patrol Agent Name Role Phone Unavailable Primary Care Provider Unavailabl e Social History Tobacco Use Types Packs/Day Years Used Date Smoking Tobacco: Never Assessed Comments Unknown Sex and Gender Information Value Date Recorded Sex Assigned at Not on file Legal Sex Female 5:56 PM C D AREA SUPERVISOR Gender Identity Not on file Sexual [...] 75+ series) 2022 COVID-19 Vaccine ( - 2024-2 6 season) 2025 Influenza Adult (#1) 2025 Hepatitis A Vaccines Aged Out No long er eligible based on patient's age to complete this topic Meningococcal B Vaccine Aged Out No l onger eligible based on patient's age to complete this topic Meningococcal Vaccine Aged Out No nicholas sarina eligible based on patient's age to complete this topic RSV Immunizations Under 20 Months Aged Out No longer eligible based on patient's age to complete this topic
== END 2025-06-05 10:10 | disposition home or self-care (01) ==
LOC: CHSLAB 10:11
PROVIDERS: PCP Internal Medicine Geriatric Medicine; Visit Provider Internal Medicine Geriatric Medicine
DX: R35.1 Nocturia (principal)
CPT/HCPCS: 36415; 80048